=== PATIENT | female | born 1935 | race Caucasian/White ===

== ENCOUNTER 2016-02-29 02:26 | Emergency (ER) | payer MEDICARE, MEDICAID ==
[~2016-02-29] VITALS: Ht 165.1 cm; Wt 108.9 kg
[~2016-02-29 02:26] MED LIST: ALBU8.5H2 IH; ASPI81TA2 PO; ATOR40TA PO; BUPR-51 PO; CLON0.1T PO; CLOT15CR5 TP; ESOM40CA PO; FURO40SO PO; GABA-534 PO; GLIM4TAB2 PO; LINA5TAB PO; LORA10TA7 PO; MECL-102 PO; METF10002 PO; OLME40TA3 PO; POTA10TA15 PO; PRED20TA PO; TRIA80OI TP
[2016-02-29] MEDS ORDERED: hydrALAZINE HCL IV 20 MG VIAL IV ONE (03:00)
[2016-02-29] MEDS ORDERED: MORPHINE SULFATE INJ 2 MG/ML DISP.SYRIN ONE (03:15)
[2016-02-29 03:20] LABS: BASOPHILS % (AUTO) 0.7 % (0.0-2.0); DIFF TOTAL % 100 %; EOSINOPHILS # (AUTO) 0.2 /CMM (0.0-0.7); EOSINOPHILS % (AUTO) 3.4 % (0.0-6.0); HEMATOCRIT 37 % (33-45); HEMOGLOBIN 12.4 g/dL (11.5-14.8); LYMPHOCYTES # (AUTO) 1.7 /CMM (0.8-4.8); LYMPHOCYTES % (AUTO) 33.4 % (20.0-44.0); MEAN CORPUSCULAR HEMOGLOBIN 29 PG (26.0-33.0); MEAN CORPUSCULAR HGB CONC 33 g/dl (31.0-36.0); MEAN CORPUSCULAR VOLUME 88 fL (82-100); MONOCYTES # (AUTO) 0.4 /CMM (0.1-1.30); MONOCYTES % (AUTO) 7.6 % (2.0-12.0); NEUTROPHILS # (AUTO) 2.8 /CMM (1.8-8.9); NEUTROPHILS % (AUTO) 54.9 % (43.0-81.0); RED BLOOD CELL COUNT(AUTO) 4.28 MIL/uL (4.0-5.2); WHITE BLOOD COUNT (AUTO) 5.1 K/uL (4.3-11.0)
[2016-02-29 03:29] LABS: PLATELET COUNT (AUTO) 100 /CMM (150-450)
[2016-02-29] MEDS ORDERED: MORPHINE SULFATE INJ 2 MG/ML DISP.SYRIN IV ONE (03:30)
[2016-02-29 03:46] LABS: CALCIUM, SERUM 8.7 mg/dL (8.5-10.1); CREATININE 0.9 mg/dL (0.6-1.3)
[2016-02-29 04:20] VITALS: BP 125/68
== END 2016-02-29 04:20 | disposition home or self-care (01) ==
LOC: ER 02:32
DX: I10 Essential (primary) hypertension (principal); E11.9 Type 2 diabetes mellitus without complications; Z91.012 Allergy to eggs; Z79.82 Long term (current) use of aspirin
CPT/HCPCS: 36415; 70450; 80048; 85025; 93005; 96374; 99285; A4606; J2270; Z7610

== ENCOUNTER 2016-03-21 03:19 | Emergency (ER) | payer MEDICARE, MEDICAID ==
[~2016-03-21] VITALS: Ht 160 cm; Wt 108.9 kg
[2016-03-21 04:15] LABS: BASOPHILS % (AUTO) 0.7 % (0.0-2.0); DIFF TOTAL % 100 %; EOSINOPHILS # (AUTO) 0.1 /CMM (0.0-0.7); EOSINOPHILS % (AUTO) 2.6 % (0.0-6.0); HEMATOCRIT 39 % (33-45); HEMOGLOBIN 12.9 g/dL (11.5-14.8); LYMPHOCYTES # (AUTO) 1.4 /CMM (0.8-4.8); LYMPHOCYTES % (AUTO) 27.8 % (20.0-44.0); MEAN CORPUSCULAR HEMOGLOBIN 29 PG (26.0-33.0); MEAN CORPUSCULAR HGB CONC 33 g/dl (31.0-36.0); MEAN CORPUSCULAR VOLUME 86 fL (82-100); MONOCYTES # (AUTO) 0.4 /CMM (0.1-1.30); MONOCYTES % (AUTO) 7.2 % (2.0-12.0); NEUTROPHILS % (AUTO) 61.7 % (43.0-81.0); PLATELET COUNT (AUTO) 92 /CMM (150-450); RED BLOOD CELL COUNT(AUTO) 4.52 MIL/uL (4.0-5.2); WHITE BLOOD COUNT (AUTO) 4.9 K/uL (4.3-11.0)
[2016-03-21 04:23] LABS: ANION GAP 12 (5-14); CALCIUM, SERUM 9.4 mg/dL (8.5-10.1); CARBON DIOXIDE 30 mmol/L (21-32); CHLORIDE 102 mmol/L (98-107); CREATININE 0.9 mg/dL (0.6-1.3); GLUCOSE 160 mg/dL (74-106); POTASSIUM 4.2 mmol/L (3.5-5.1); SODIUM SERUM 140 mmol/L (136-145); UREA NITROGEN, BLOOD 23 mg/dL (7-18)
[2016-03-21 04:29] LABS: ALANINE AMINOTRANSFERASE 72 U/L (12-78); ALBUMIN 3.3 g/dL (3.4-5.0); ASPARTATE AMINOTRANSFERASE 63 U/L (15-37); BILIRUBIN,DIRECT 0.1 mg/dL (0.0-0.2); BILIRUBIN,TOTAL 0.4 mg/dL (0.2-1.0); INDIRECT BILIRUBIN 0.3 mg/dL (0.0-1.1); TOTAL PROTEIN, SERUM 7.7 g/dL (6.4-8.2)
[2016-03-21 04:31] LABS: TROPONIN I < 0.017 ng/mL (0.00-0.056)
[2016-03-21 04:43] LABS: KETONES,URINE TRACE (NEGATIVE); LEUKOCYTE ESTERASE ,URINE NEGATIVE (NEGATIVE); PH,URINE 5.5 (5.0-8.0)
[2016-03-21 04:48] LABS: ADD UA MICROSCOPIC YES
[2016-03-21 04:49] LABS: RBC,URINE 0-2 /HPF (0-2)
[2016-03-21 04:50] LABS: ADD URINE CULTURE NO; WBC,URINE 0-2 /HPF (0-3)
[2016-03-21 05:02] LABS: BAND % (MANUAL) 2 % (0.0-5.0); BASOPHILS % (MANUAL) 0 % (0.0-2.0); EOSINOPHILS % (MANUAL) 3 % (0-4); LYMPHOCYTES % (MANUAL) 32 % (16-48); PLATELET ESTIMATE DECREASED
[2016-03-21 05:03] LABS: RBC MORPHOLOGY COMMENT NORMAL RBC MORPH
[2016-03-21 05:31] VITALS: BP 150/67
== END 2016-03-21 05:26 | disposition home or self-care (01) ==
LOC: ER 03:22
DX: I10 Essential (primary) hypertension (principal); E11.9 Type 2 diabetes mellitus without complications; R11.0 Nausea; Z79.82 Long term (current) use of aspirin; Z91.012 Allergy to eggs; Z88.8 Allergy status to other drugs, medicaments and biological substances
CPT/HCPCS: 36415; 70450; 71010; 80048; 80076; 81001; 82962; 84484; 85025; 93005; 99285; A4606; 81000-TC; Z7610

== ENCOUNTER 2016-04-02 02:10 | Emergency (ER) | payer MEDICARE, MEDICAID ==
[~2016-04-02] VITALS: Ht 160 cm; Wt 117.0 kg
[2016-04-02] MEDS ORDERED: CLONIDINE HCL 0.1 MG TABLET ONE (02:45)
[2016-04-02] MEDS ORDERED: LORAZEPAM 1 MG TABLET ONE (02:46)
[2016-04-02] MEDS ORDERED: HYDROCODONE/APAP 10/325MG 1 EA TABLET ONE (02:46)
[2016-04-02] MEDS ORDERED: ONDANSETRON 4 MG TAB.RAPDIS ONE (02:46)
[2016-04-02] MEDS ORDERED: HYDROCODONE/APAP 10/325MG 1 EA TABLET PO ONE (03:00)
[2016-04-02] MEDS ORDERED: ONDANSETRON 4 MG TAB.RAPDIS SL ONE (03:00)
[2016-04-02] MEDS ORDERED: CLONIDINE HCL 0.1 MG TABLET PO ONE (03:00)
[2016-04-02] MEDS ORDERED: LORAZEPAM 1 MG TABLET PO ONE (03:00)
[2016-04-02 03:11] LABS: KETONES,URINE NEGATIVE (NEGATIVE); LEUKOCYTE ESTERASE ,URINE NEGATIVE (NEGATIVE); PH,URINE 5.5 (5.0-8.0)
[2016-04-02 03:17] LABS: ADD UA MICROSCOPIC YES
[2016-04-02 03:18] LABS: ADD URINE CULTURE NO; RBC,URINE NONE SEEN /HPF (0-2); WBC,URINE 0-2 /HPF (0-3)
[2016-04-02 03:47] VITALS: BP 149/87
== END 2016-04-02 03:49 | disposition home or self-care (01) ==
LOC: ER 02:13
DX: I10 Essential (primary) hypertension (principal); Z91.012 Allergy to eggs
CPT/HCPCS: 81000-TC; 82962-TC; A4606; Q0162; Z7610

== ENCOUNTER 2016-04-08 08:34 | Emergency (ER) | payer MEDICARE, MEDICAID ==
[~2016-04-08] VITALS: Ht 167.6 cm; Wt 88.5 kg
[2016-04-08] MEDS ORDERED: diphenhydrAMINE HCL 50 MG/ML VIAL ONE (08:55)
[2016-04-08] MEDS ORDERED: FAMOTIDINE/PF INJ 20 MG/2 ML VIAL IV ONE ×2 (08:55→09:00)
[2016-04-08] MEDS ORDERED: predniSONE 20 MG TABLET ONE (08:55)
[2016-04-08] MEDS ORDERED: diphenhydrAMINE HCL 50 MG/ML VIAL IV ONE (09:00)
[2016-04-08] MEDS ORDERED: predniSONE 10 MG TABLET PO ONE (09:00)
[2016-04-08] MEDS ORDERED: GABA-532 PO (09:25)
[2016-04-08] MEDS ORDERED: NEBI5TAB8 PO (09:25)
[2016-04-08] MEDS ORDERED: CLON1PAT13 TD (09:25)
[2016-04-08] MEDS ORDERED: BENA20TA2 PO (09:25)
[2016-04-08 10:18] VITALS: BP 160/84
== END 2016-04-08 10:20 | disposition home or self-care (01) ==
LOC: ER 08:36
DX: T78.3XXA Angioneurotic edema, initial encounter (principal); I10 Essential (primary) hypertension; E11.9 Type 2 diabetes mellitus without complications; Z91.012 Allergy to eggs; Z79.82 Long term (current) use of aspirin
CPT/HCPCS: 96374; 96375; 99284; A4606; J1200; J3490; J7512; Z7610

== ENCOUNTER 2016-06-04 05:31 | Emergency (ER) | payer MEDICARE, MEDICAID ==
[~2016-06-04] VITALS: Ht 165.1 cm; Wt 81.6 kg
[~2016-06-04 05:31] MED LIST changes: -ALBU8.5H2 IH; -ASPI81TA2 PO; -ATOR40TA PO; +BENA20TA2 PO; -BUPR-51 PO; -CLON0.1T PO; +CLON1PAT13 TD; -CLOT15CR5 TP; -ESOM40CA PO; -FURO40SO PO; +GABA-532 PO; -GABA-534 PO; -LORA10TA7 PO; -MECL-102 PO; +NEBI5TAB8 PO; -OLME40TA3 PO; -POTA10TA15 PO; -PRED20TA PO; -TRIA80OI TP
[2016-06-04] MEDS ORDERED: IV NS 0.9% 1,000 ML ONE (05:41)
[2016-06-04] MEDS ORDERED: IV SET PRIMARY 1 EA INFUS.SET MC ONE (05:41)
[2016-06-04] MEDS ORDERED: KETOROLAC TROMETHAMINE 15 MG/ML VIAL ONE (05:41)
[2016-06-04] MEDS ORDERED: ONDANSETRON HCL/PF 4 MG/2 ML VIAL ONE (05:41)
--- NOTE | 2016-06-04 05:45 | NUR ---
80 YO FEMALE BB FEMALE, PT IS ALERT X 3, C/O LT FLANK PAIN RADIATING TO LT SIDE SINCE 0430. PT AMBULATED TO ER BED WITH STEADY GAIT, SKIN WARM AND DRY, RR EVEN AND UNLABORED. AWAITING ORDERS FROM PROVIDER
--- NOTE | 2016-06-04 05:50 | NUR ---
20G LEFT FA IV STARTED
--- NOTE | 2016-06-04 05:55 | NUR ---
MEDICATED PT ORDERED
[2016-06-04] MEDS ORDERED: IV NS 0.9% 1,000 ML BAG IV ONE (06:00)
[2016-06-04] MEDS ORDERED: ONDANSETRON HCL/PF 4 MG/2 ML VIAL IVP ONE (06:00)
[2016-06-04] MEDS ORDERED: KETOROLAC TROMETHAMINE INJ 30 MG/ML VIAL IV ONE (06:00)
--- NOTE | 2016-06-04 06:16 | NUR ---
PT TRANSPORTED TO CT VIA GURNEY BY RADIOLOGY TEAM
[2016-06-04 06:20] LABS: CALCIUM, SERUM 9.4 mg/dL (8.5-10.1); CARBON DIOXIDE 26 mmol/L (21-32); CHLORIDE 104 mmol/L (98-107); CREATININE 0.9 mg/dL (0.6-1.3); GLUCOSE 210 mg/dL (74-106); POTASSIUM 4.1 mmol/L (3.5-5.1); SODIUM SERUM 140 mmol/L (136-145); UREA NITROGEN, BLOOD 15 mg/dL (7-18)
--- NOTE | 2016-06-04 06:20 | NUR ---
PT RETURNED FROM CT
[2016-06-04 06:27] LABS: ALANINE AMINOTRANSFERASE 75 U/L (12-78); ALBUMIN 3.2 g/dL (3.4-5.0); ALKALINE PHOSPHATASE 75 U/L (46-116); ASPARTATE AMINOTRANSFERASE 49 U/L (15-37); BILIRUBIN,DIRECT 0.2 mg/dL (0.0-0.2); BILIRUBIN,TOTAL 0.7 mg/dL (0.2-1.0); LIPASE 255 U/L (73-393); TOTAL PROTEIN, SERUM 7.3 g/dL (6.4-8.2)
[2016-06-04 06:28] LABS: BASOPHILS % (AUTO) 0.5 % (0.0-2.0); EOSINOPHILS # (AUTO) 0.1 /CMM (0.0-0.7); EOSINOPHILS % (AUTO) 2.9 % (0.0-6.0); HEMATOCRIT 38 % (33-45); HEMOGLOBIN 12.6 g/dL (11.5-14.8); LYMPHOCYTES # (AUTO) 1.4 /CMM (0.8-4.8); LYMPHOCYTES % (AUTO) 28.9 % (20.0-44.0); MEAN CORPUSCULAR HEMOGLOBIN 28 PG (26.0-33.0); MEAN CORPUSCULAR HGB CONC 33 g/dl (31.0-36.0); MEAN CORPUSCULAR VOLUME 85 fL (82-100); MONOCYTES # (AUTO) 0.4 /CMM (0.1-1.30); MONOCYTES % (AUTO) 9.3 % (2.0-12.0); NEUTROPHILS # (AUTO) 2.8 /CMM (1.8-8.9); NEUTROPHILS % (AUTO) 58.4 % (43.0-81.0); PLATELET COUNT (AUTO) 103 /CMM (150-450); RDW COEFFICIENT OF VARIATION 14.8 (11.5-15.0); RED BLOOD CELL COUNT(AUTO) 4.47 MIL/uL (4.0-5.2); TROPONIN I < 0.017 ng/mL (0.00-0.056); WHITE BLOOD COUNT (AUTO) 4.8 K/uL (4.3-11.0)
[2016-06-04 06:37] LABS: APPEARANCE,URINE SL CLOUDY (CLEAR); BILIRUBIN,URINE NEGATIVE (NEGATIVE); BLOOD, URINE 1+ Ery/uL (NEGATIVE); COLOR,URINE YELLOW (YELLOW); KETONES,URINE NEGATIVE (NEGATIVE); LEUKOCYTE ESTERASE ,URINE TRACE (NEGATIVE); NITRITE, URINE NEGATIVE (NEGATIVE); PH,URINE 5.5 (5.0-8.0); PROTEIN,URINE NEGATIVE (NEGATIVE); UGLUCOSE TRACE mg/dL (NEGATIVE); UROBILINOGEN,URINE 0.2 EU/dL (0.2)
[2016-06-04 06:44] LABS: ADD URINE CULTURE NO; BACTERIA,URINE Few /HPF (None Seen); SQUAMOUS EPITHELIAL CELL,UR Moderate /HPF (None Seen)
[2016-06-04 06:45] LABS: MUCUS,URINE Few /LPF (None Seen)
[2016-06-04] MEDS ORDERED: ACETAMINOPHEN W/ CODEINE#3 1 EA TABLET PO ONE (08:00)
[2016-06-04] MEDS ORDERED: ACETAMINOPHEN W/ CODEINE#3 1 EA TABLET ONE (08:05)
--- NOTE | 2016-06-04 08:26 | NUR ---
IV removed. Catheter intact and site benign. Pressure and 4x4 applied to site. No bleeding noted.
[2016-06-04 08:57] VITALS: BP 138/81
--- NOTE | 2016-06-04 08:57 | NUR ---
Patient discharged to home in stable condition. Written and verbal after care instructions given. Patient verbalizes understanding of instruction.
--- NOTE | 2016-06-04 08:57 | NUR ---
PATIENT AMBULATES OUT OF ER WITH STABLE GAIT. AAOX3.
== END 2016-06-04 08:57 | disposition home or self-care (01) ==
LOC: ER 05:32
DX: R10.32 Left lower quadrant pain (principal); I10 Essential (primary) hypertension; E11.9 Type 2 diabetes mellitus without complications
CPT/HCPCS: 36415; 74176; 80048; 80076; 81001; 83690; 84484; 85025; 93005; 96361; 96374; 96375; 99285; A4606; J1885; J2405; J7030; 81000-TC; Z7610

== ENCOUNTER 2016-08-24 10:05 | Emergency (ER) | payer MEDICARE, MEDICAID ==
[~2016-08-24] VITALS: Ht 162.6 cm; Wt 108.9 kg
[2016-08-24 10:18] VITALS: BP 167/104
== END 2016-08-24 10:45 | disposition home or self-care (01) ==
LOC: ER 10:07
DX: T78.40XA Allergy, unspecified, initial encounter (principal); E11.9 Type 2 diabetes mellitus without complications; I10 Essential (primary) hypertension; Z88.0 Allergy status to penicillin; Z91.012 Allergy to eggs; Y92.89 Other specified places as the place of occurrence of the external cause
CPT/HCPCS: A4606; Z7610

== ENCOUNTER 2016-12-23 12:17 | Inpatient (IN) | payer MEDICARE, MEDICAID ==
[~2016-12-23] VITALS: Ht 170.2 cm; Wt 114.3 kg
--- NOTE | 2016-12-23 12:24 | NUR ---
PT AMBULATORY TO ER BED 09. C/O HIGH BLOOD PRESSURE FOR COUPLE OF DAYS W/ HEADACHES WORST AT NIGHT TIME. GOWNED AND PLACED ON MONITOR. HYPERTENSIVE OTHERWISE STABLE VITALS. AWAITING MD BOWERS.
--- NOTE | 2016-12-23 12:32 | NUR ---
DR GONZALEZ AT BEDSIDE FOR EVAL.
[2016-12-23 12:47] LABS: BASOPHILS % (AUTO) 0.3 % (0.0-2.0); EOSINOPHILS # (AUTO) 0.1 /CMM (0.0-0.7); EOSINOPHILS % (AUTO) 1.5 % (0.0-6.0); HEMATOCRIT 37 % (33-45); HEMOGLOBIN 12.4 g/dL (11.5-14.8); LYMPHOCYTES # (AUTO) 1.5 /CMM (0.8-4.8); LYMPHOCYTES % (AUTO) 26.7 % (20.0-44.0); MEAN CORPUSCULAR HEMOGLOBIN 30 PG (26.0-33.0); MEAN CORPUSCULAR HGB CONC 34 g/dl (31.0-36.0); MEAN CORPUSCULAR VOLUME 88 fL (82-100); MONOCYTES # (AUTO) 0.4 /CMM (0.1-1.30); MONOCYTES % (AUTO) 7.7 % (2.0-12.0); NEUTROPHILS # (AUTO) 3.5 /CMM (1.8-8.9); NEUTROPHILS % (AUTO) 63.8 % (43.0-81.0); PLATELET COUNT (AUTO) 98 /CMM (150-450); RDW COEFFICIENT OF VARIATION 14.4 (11.5-15.0); WHITE BLOOD COUNT (AUTO) 5.4 K/uL (4.3-11.0)
[2016-12-23] MEDS ORDERED: NITROGLYCERIN 0.4 MG/TAB BOTTLE ONE (12:49)
[2016-12-23] MEDS ORDERED: ASPIRIN 325 MG TABLET ONE (12:49)
--- NOTE | 2016-12-23 12:51 | NUR ---
RADIOLOGY AT BEDSIDE FOR CHEST XRAY.
[2016-12-23 12:52] LABS: CARBON DIOXIDE 24 mmol/L (21-32); CHLORIDE 106 mmol/L (98-107); GLUCOSE 283 mg/dL (74-106); POTASSIUM 4.1 mmol/L (3.5-5.1); SODIUM SERUM 137 mmol/L (136-145); UREA NITROGEN, BLOOD 17 mg/dL (7-18)
[2016-12-23 12:57] LABS: INR 0.99 (0.87-1.13); PROTHROMBIN TIME 10.3 SECS (9.5-12.7)
[2016-12-23] MEDS ORDERED: NITROGLYCERIN 0.4 MG/TAB BOTTLE SL ONE (13:00)
[2016-12-23] MEDS ORDERED: ASPIRIN 325 MG TABLET PO ONE (13:00)
[2016-12-23 13:01] LABS: TROPONIN I < 0.017 ng/mL (0.00-0.056)
[2016-12-23] MEDS ORDERED: INSULIN REGULAR, HUMAN 100 UNIT/ML 10 ML VIAL ONE (13:25)
[2016-12-23] MEDS ORDERED: INSULIN REGULAR, HUMAN 100 UNIT/ML 10 ML VIAL SQ ONE (13:30)
--- NOTE | 2016-12-23 13:31 | NUR ---
REGULAR INSULIN GIVEN 2 UNITS SQ TO LLQ ABDOMEN. WITNESSED BY ALEKSANDR JEFFERS.
--- NOTE | 2016-12-23 13:32 | NUR ---
CALLED [employer], LOSS PREVENTION DETECTIVE WAS PAGED.
--- NOTE | 2016-12-23 13:50 | NUR ---
FAMILY ART LEFT CONTACT # [phone]
[2016-12-23 13:54] LABS: BAND % (MANUAL) 1 % (0.0-5.0); EOSINOPHILS % (MANUAL) 1 % (0-4); LYMPHOCYTES % (MANUAL) 24 % (16-48); MONOCYTES % (MANUAL) 11 % (0-11.0); NEUTROPHILS % (MANUAL) 63 (42-76)
[2016-12-23] MEDS ORDERED: CLON1PAT13 TD (13:54)
[2016-12-23] MEDS ORDERED: FURO40TA5 PO (13:54)
[2016-12-23] MEDS ORDERED: LEVE500T20 PO (13:54)
[2016-12-23] MEDS ORDERED: NEBI10TA2 PO (13:54)
[2016-12-23] MEDS ORDERED: PANT40TA4 PO (13:54)
[2016-12-23] MEDS ORDERED: INSU3INS6 SQ (13:54)
[2016-12-23] MEDS ORDERED: MONT10TA22 PO (13:54)
[2016-12-23] MEDS ORDERED: BUPR-51 PO (13:54)
[2016-12-23] MEDS ORDERED: ICOS1CAP PO (13:54)
[2016-12-23] MEDS ORDERED: POTA8TAB3 PO (13:54)
[2016-12-23 15:20] VITALS: BP 141/72
--- NOTE | 2016-12-23 15:20 | NUR ---
ZEYAD ADM Notes Received an 81 year old female per hospital bed with cc of Syncope under the service of Dr Reyna. Patient is awake,alert and oriented. Not in any form of distress. Denies headache or dizziness. On RA saturating at 97%. VSS. Oriented to the room and use of call light. Initial body check done with ZEYAD Alvarez with skin intact. Tele monitor attached, sinus rhythm. Pending admitting orders from Dr Reyna. Addendum: 12/23/16 at 1616 by MICHELLE LUA RN correction of entry: cc of chest pain
--- NOTE | 2016-12-23 15:26 | NUR ---
TRANSFERED TO FLOOR. STABLE CONDITION.
[2016-12-23 16:00] VITALS: BP 141/72
[2016-12-23] MEDS ORDERED: ZOLPIDEM TARTRATE 5 MG TABLET PO PRN (16:00)
[2016-12-23] MEDS ORDERED: Z GUARD REMEDY 2 OZ OINT TP PRN (16:00)
[2016-12-23] MEDS ORDERED: MAG HYDROX/AL HYDROX/SIMETH 30 ML UDC PO PRN (16:00)
[2016-12-23] MEDS ORDERED: MORPHINE SULFATE INJ 2 MG/ML DISP.SYRIN IV PRN (16:00)
[2016-12-23] MEDS ORDERED: MAGNESIUM HYDROXIDE 30 ML UDC PO PRN (16:00)
[2016-12-23] MEDS ORDERED: ONDANSETRON HCL/PF 4 MG/2 ML VIAL IVP PRN (16:00)
[2016-12-23] MEDS ORDERED: CLONIDINE HCL 0.2MG/24H PTWK 1 EA PATCH TD SCH (16:00)
[2016-12-23] MEDS ORDERED: NITROGLYCERIN 0.4 MG/TAB BOTTLE SL PRN (16:00)
[2016-12-23] MEDS ORDERED: ACETAMINOPHEN 325 MG TABLET PO PRN (16:00)
[2016-12-23] MEDS ORDERED: HYDROCODONE/APAP 5/325MG 1 EACH TABLET PO PRN (16:00)
[2016-12-23 16:18] VITALS: BP 141/72
[2016-12-23] MEDS: GLIMEPIRIDE 4 MG TABLET PO SCH (18:41)
[2016-12-23] MEDS: METFORMIN 500 MG TABLET PO SCH (18:41)
[2016-12-23] MEDS: GABAPENTIN 100 MG CAPSULE PO SCH (18:42)
[2016-12-23] MEDS: ENOXAPARIN SODIUM 40 MG/0.4 ML DISP.SYRIN SQ SCH (18:42)
--- NOTE | 2016-12-23 19:05 | NUR ---
RN Notes Resting well with no complain at this time. Needs anticipated. No untoward symptom noted within the shift. Will endorse to restaurant shift leader nurse for continuity of care.
--- NOTE | 2016-12-23 19:25 | NUR ---
TECHNICAL EDITOR OPENING NOTES: RECEIVED PT IN BED AND IS RESTING WITH HOB ELEVATED. PT IS A/OX3 AND IS ONLY CROATIAN/GAMBIAN SPEAKING. PT DENIES ANY PAIN AT THIS TIME. NO SOB NOTED AT THIS TIME. NO S/S OF DISTRESS NOTED AT THIS TIME. PT HAS IV ON L HAND 18G AND IS PATENT AND INTACT. PT ALSO CURRENTLY HEP LOCK. PT NOTIFIED THAT SHE IS TO BE NPO POST MIDNIGHT AND WILL HAVE A PROCEDURE TOMORROW. WILL NEED TO OBTAIN CONSENT FROM HER. WILL CONTINUE TO MONITOR PT.
[2016-12-23 20:00] VITALS: BP 138/71
[2016-12-23] MEDS: LEVETIRACETAM (250 MG) 250 MG TABLET PO SCH (21:00)
--- NOTE | 2016-12-23 21:27 | NUR ---
WORLD LANGUAGE TEACHER NOTES: AFTER GETTING AN SINHALA SPEAKING PERSON, I HAD HIM TRANSLATE TO PT ABOUT KEPPRA RISKS AND BENEFITS. PT STILL REFUSED AFTER BEING EXPLAINED RISKS AND BENEFITS OF KEPPRA. WILL CONTINUE TO MONITOR PT.
[2016-12-24] VITALS: BP 129/64
--- NOTE | 2016-12-24 00:15 | NUR ---
HOUSEKEEPER CLEANING COOKING NOTES: SPOKE WITH Lyle IGNACIO AND INFORMED HIM THAT DR. MANSI Craig PUT IN THE NOTES FOR FS ACHS MILD SSI. GOT ORDER TO GO AHEAD AND CHECK ACCUCHEKS AND GO BY DR. MANSI Gordon'S ORDERS.
[2016-12-24] MEDS ORDERED: DEXTROSE 50%-WATER 50 ML DISP.SYRIN IV PRN (00:30)
[2016-12-24] MEDS ORDERED: MORPHINE SULFATE INJ 4 MG/ML DISP.SYRIN ONE (03:28)
[2016-12-24] MEDS ORDERED: MORPHINE SULFATE INJ 4 MG/ML DISP.SYRIN IV ONE (03:30)
--- NOTE | 2016-12-24 03:36 | NUR ---
MAIL CARRIER NOTES: PT COMPLAINING OF 7/10 HEADACHE AND GENERALIZED PAIN. MORPHINE WAS OVERRODE BY THE CHARGE NURSE SINCE MORPHINE 2MG IN BOTH MED ROOMS ARE OUT OF STOCK. ONLY ADMINISTERED 0.5ML OR MORPHINE AND WASTED REMAINDER. UNABLE TO WASTE IN SYSTEM. IT DOES NOT GIVE OPTION. CHARGE NURSE AWARE. WILL CONTINUE TO MONITOR PT.
[2016-12-24 04:00] VITALS: BP 145/65
--- NOTE | 2016-12-24 05:40 | NUR ---
PAPER SAMPLE CLERK NOTES: DR. IGNACIO AWARE OF MORPHINE 2MG BEING OUT AND THAT MORPHINE 4MG HAD TO BE OVERRODE BY CHARGE NURSE. IT WAS ONLY A ONE TIME ORDER.
[2016-12-24] MEDS: BLOOD SUGAR DIAGNOSTIC 1 EACH STRIP IN SCH ×4 (06:01→21:04)
--- NOTE | 2016-12-24 06:22 | NUR ---
AGRICULTURAL ADVISER NOTES: BLOOD SUGAR THIS AM WAS 160. WILL HOLD INSULIN D/T PT BEING NPO AND HAS A STRESS TEST SCHEDULED SOMETIME THIS MORNING. ALSO, PT SAID THAT SHE DID NOT WANT THE INSULIN ANYWAYS D/T HER TAKING ORAL HYPOGLYCEMICS. WILL CONTINUE TO MONITOR PT.
[2016-12-24] MEDS: INSULIN REGULAR, HUMAN 100 UNIT/ML 3 ML VIAL SQ PRN ×4 (06:23→21:11)
[2016-12-24 06:52] LABS: BASOPHILS % (AUTO) 0.5 % (0.0-2.0); EOSINOPHILS # (AUTO) 0.1 /CMM (0.0-0.7); EOSINOPHILS % (AUTO) 3.1 % (0.0-6.0); HEMATOCRIT 34 % (33-45); HEMOGLOBIN 11.7 g/dL (11.5-14.8); LYMPHOCYTES # (AUTO) 1.3 /CMM (0.8-4.8); LYMPHOCYTES % (AUTO) 35.8 % (20.0-44.0); MEAN CORPUSCULAR HEMOGLOBIN 30 PG (26.0-33.0); MEAN CORPUSCULAR HGB CONC 34 g/dl (31.0-36.0); MEAN CORPUSCULAR VOLUME 87 fL (82-100); MONOCYTES # (AUTO) 0.3 /CMM (0.1-1.30); MONOCYTES % (AUTO) 8.7 % (2.0-12.0); NEUTROPHILS # (AUTO) 1.9 /CMM (1.8-8.9); NEUTROPHILS % (AUTO) 51.9 % (43.0-81.0); PLATELET COUNT (AUTO) 79 /CMM (150-450); RDW COEFFICIENT OF VARIATION 14.5 (11.5-15.0); RED BLOOD CELL COUNT(AUTO) 3.92 MIL/uL (4.0-5.2); WHITE BLOOD COUNT (AUTO) 3.7 K/uL (4.3-11.0)
[2016-12-24 07:05] LABS: CHOLESTEROL 130 mg/dL (<200); HDL CHOLESTEROL 56 mg/dL (40-60); LDL 60 mg/dL (0-99); TRIGLYCERIDES 107 mg/dL (30-150)
[2016-12-24 07:18] LABS: CALCIUM, SERUM 9.3 mg/dL (8.5-10.1); CARBON DIOXIDE 23 mmol/L (21-32); CHLORIDE 105 mmol/L (98-107); CREATININE 0.8 mg/dL (0.6-1.3); GLUCOSE 177 mg/dL (74-106); PHOSPHORUS 4.4 mg/dL (2.5-4.9); POTASSIUM 3.8 mmol/L (3.5-5.1); SODIUM SERUM 141 mmol/L (136-145); UREA NITROGEN, BLOOD 16 mg/dL (7-18)
--- NOTE | 2016-12-24 07:27 | NUR ---
DIRECTOR OF ENTERPRISE STRATEGY CLOSING NOTES: ALL NEEDS WERE ATTENDED AND ANTICIPATED FOR. PT LAYING IN BED COMFORTABLY. PT IS A/OX3 AND IS ONLY HUNGARIAN/MARSHALLESE SPEAKING. NO SOB NOTED AT THIS TIME. NO S/S OF DISTRESS NOTED AT THIS TIME. PT HAS IV ON L HAND 18G AND IS PATENT AND INTACT. PT ALSO CURRENTLY HEP LOCK. PT NOTIFIED THAT SHE IS TO BE NPO UNTIL STRESS TEST PERFORMED AND CLEARED FROM DOCTOR. CONSENT OBTAINED. PT ON TELE BOX AND READING SHOWS SR. CALL LIGHT WITHIN PT'S REACH. BED KEPT IN LOW, LOCKED POSITION, AND SIDE RAILS X 2 UP. ENDORSED TO AM NURSE FOR MICHAEL.
[2016-12-24] MEDS: PANTOPRAZOLE 40 MG TABLET.DR PO SCH (07:30)
--- NOTE | 2016-12-24 07:35 | NUR ---
RN OPENING NOTES RECEIVED PT. IN BED A&OX4. TELE READING SINUS RHYTHM 61 BPM. NO SOB, BREATHING UNLABORED, AND EVENLY. PT. DENIES CHEST PAIN, AND NO S/S OF ACUTE DISTRESS. IV ACCESS ON LEFT HAND SITE IS INTACT AND PATENT WITH SALINE FLUSH. BED IS IN LOWEST, LOCKED POSITION, 2 SIDE RAILS UP, AND INSTRUCTED PT. TO USE CALL LIGHT FOR ASSISTANCE. WILL CONTINUE TO ASSESS AND MONITOR.
[2016-12-24 07:58] LABS: MAGNESIUM 1.2 mg/dL (1.8-2.4)
[2016-12-24 08:00] VITALS: BP 153/63
[2016-12-24 08:49] LABS: BAND % (MANUAL) 2 % (0.0-5.0); EOSINOPHILS % (MANUAL) 4 % (0-4); LYMPHOCYTES % (MANUAL) 38 % (16-48); MONOCYTES % (MANUAL) 6 % (0-11.0); NEUTROPHILS % (MANUAL) 50 (42-76)
[2016-12-24] MEDS: LINAGLIPTIN 5 MG TABLET PO SCH (09:00)
[2016-12-24] MEDS: INSULIN DETEMIR 100 UNIT/ML CARTRIDGE SQ SCH (09:00)
[2016-12-24] MEDS: GLIMEPIRIDE 4 MG TABLET PO SCH ×3 (09:00→17:47)
[2016-12-24] MEDS: METFORMIN 500 MG TABLET PO SCH ×3 (09:00→17:47)
[2016-12-24] MEDS ORDERED: FUROSEMIDE 40 MG TABLET PO SCH (09:00)
[2016-12-24] MEDS ORDERED: REGADENOSON 0.4 MG/5 ML DISP.SYRIN IVP ONE (10:00)
[2016-12-24] MEDS: GABAPENTIN 100 MG CAPSULE PO SCH ×2 (10:02→17:45)
[2016-12-24] MEDS: ASPIRIN EC 81 MG TABLET.DR PO SCH (10:02)
[2016-12-24] MEDS: BUPROPION XL 150 MG TAB.ER.24 PO SCH (10:03)
[2016-12-24] MEDS: LEVETIRACETAM (250 MG) 250 MG TABLET PO SCH ×2 (10:03→20:18)
[2016-12-24] MEDS: MONTELUKAST SODIUM (10MG) 10 MG TABLET PO SCH (10:04)
[2016-12-24] MEDS ORDERED: CLONIDINE HCL 0.2MG/24H PTWK 1 EA PATCH TD SCH (12:00)
[2016-12-24] MEDS: Magnesium 1GM/D5W 100ML PREMIX 100 ML IV SCH ×2 (12:46→15:19)
[2016-12-24] MEDS: LOSARTAN POTASSIUM 50 MG TABLET PO SCH (12:57)
[2016-12-24] MEDS ORDERED: IBUPROFEN 400 MG TABLET PO ONE (15:00)
[2016-12-24 16:00] VITALS: BP 148/89
--- NOTE | 2016-12-24 19:05 | NUR ---
RN OPENING NOTES: RECEIVED PT IN BED AND IS LAYING DOWN. PT IS A/OX4.NO SOB NOTED. BREATHING EVEN AND UNLABORED. NO S/S OF DISTRESS. IV ACCESS ON LEFT HAND SITE IS INTACT AND PATENT WITH SALINE FLUSH. CALL LIGHT WITHIN PT'S REACH. BED KEPT IN LOW, LOCKED POSITION, AND SIDE RAILS X 2 UP. WILL CONTINUE TO MONITOR PT.
--- NOTE | 2016-12-24 19:30 | NUR ---
RN CLOSING NOTES PT. IN BED A&OX4. TELE READING SINUS RHYTHM 62 BPM. NO SOB, BREATHING UNLABORED, AND EVENLY. NO S/S OF ACUTE DISTRESS. IV ACCESS ON LEFT HAND SITE IS INTACT AND PATENT WITH SALINE FLUSH. MAGNESIUM WAS REPLACED TODAY. BED IS IN LOWEST, LOCKED POSITION, 2 SIDE RAILS UP, AND INSTRUCTED PT. TO USE CALL LIGHT FOR ASSISTANCE.
--- NOTE | 2016-12-24 19:39 | NUR ---
DIRECTOR OF GUIDANCE IN PUBLIC SCHOOLS NOTES: DR. JONES WAS ON FLOOR. MENTIONED TO HIM THAT PLATELET COUNT WAS 79. GOT VERBAL ORDER TO HOLD THE LOVENOX 40MG THAT IS SCHEDULED FOR 2100.
[2016-12-24 20:00] VITALS: BP 128/72
[2016-12-24] MEDS: ENOXAPARIN SODIUM 40 MG/0.4 ML DISP.SYRIN SQ SCH (20:23)
--- NOTE | 2016-12-24 21:11 | NUR ---
LEAD PROGRAMMER NOTES: BLOOD SUGAR WAS 72. NO INSULIN WAS ADMINISTERED. WILL CONTINUE TO MONITOR PT.
--- NOTE | 2016-12-24 21:20 | NUR ---
GROOVER AND TURNER NOTES: SPOKE TO JANNETTE CHURCHILL AND INFORMED HIM THAT PT IS COMPLAINING OF HEADACHE AND REQUESTING FOR ADVIL. GOT ORDER FOR IBUPROFEN 400MG Q6 PRN.
[2016-12-24] MEDS ORDERED: IBUPROFEN 400 MG TABLET ONE (21:29)
[2016-12-24] MEDS ORDERED: IBUPROFEN 400 MG TABLET PO PRN (21:30)
--- NOTE | 2016-12-24 21:46 | NUR ---
VENEER DRIER FEEDER NOTES: PT COMPLAINING OF MILD HEADACHE. FAMILY MEMBERS AT BEDSIDE TRANSLATED FOR ME. PT WAS ADMINISTERED IBUPROFEN 400MG PO. WILL CONTINUE TO MONITOR PT.
[2016-12-25] MEDS: BLOOD SUGAR DIAGNOSTIC 1 EACH STRIP IN SCH ×2 (06:06→11:53)
[2016-12-25] MEDS: INSULIN REGULAR, HUMAN 100 UNIT/ML 3 ML VIAL SQ PRN ×2 (06:09→11:53)
--- NOTE | 2016-12-25 06:10 | NUR ---
MS RN NOTES: PT'S BLOOD SUGAR THIS AM WAS 137. EXPLAINED TO PT THAT SHE NEEDS 2 UNITS OF INSULIN ACCORDING TO THE SLIDING SCALE. PT REFUSED AFTER EXPLAINING RISKS AND BENEFITS. SHE SAID SHE IS AWARE AND THAT SHE IS TAKING ORAL HYPOGLYCEMICS. PT STILL REFUSING. WILL CONTINUE TO MONITOR PT.
--- NOTE | 2016-12-25 06:26 | NUR ---
MS RN CLOSING NOTES: ALL NEEDS WERE ATTENDED AND ANTICIPATED FOR. TOOK PT OFF TELE BOX SINCE THERE WAS AN ORDER TO D/C HER AND TRANSFER HER TO MED SURG. PT IN BED ASLEEP, COMFORTABLY. PT IS A&OX4. PT ONLY ANGUILLAN/BELGIAN SPEAKING AND UNDERSTANDING ONLY. NO SOB NOTED. BREATHING UNLABORED AND EVEN. PT. DENIES CHEST PAIN. NO S/S OF DISTRESS. IV ACCESS ON LEFT HAND SITE IS INTACT AND PATENT WITH SALINE FLUSH. BED KEPT IN LOW, LOCKED POSITION, AND SIDE RAILS X2 UP. CALL LIGHT WITHIN PT'S REACH. WILL ENDORSE TO AM NURSE FOR MICHAEL.
[2016-12-25 06:55] LABS: BASOPHILS % (AUTO) 0.4 % (0.0-2.0); EOSINOPHILS # (AUTO) 0.1 /CMM (0.0-0.7); EOSINOPHILS % (AUTO) 3.8 % (0.0-6.0); HEMATOCRIT 34 % (33-45); HEMOGLOBIN 11.8 g/dL (11.5-14.8); LYMPHOCYTES # (AUTO) 1.2 /CMM (0.8-4.8); LYMPHOCYTES % (AUTO) 33.7 % (20.0-44.0); MEAN CORPUSCULAR HEMOGLOBIN 30 PG (26.0-33.0); MEAN CORPUSCULAR HGB CONC 34 g/dl (31.0-36.0); MEAN CORPUSCULAR VOLUME 87 fL (82-100); MONOCYTES # (AUTO) 0.3 /CMM (0.1-1.30); MONOCYTES % (AUTO) 7.6 % (2.0-12.0); NEUTROPHILS % (AUTO) 54.5 % (43.0-81.0); PLATELET COUNT (AUTO) 78 /CMM (150-450); RDW COEFFICIENT OF VARIATION 14.4 (11.5-15.0); RED BLOOD CELL COUNT(AUTO) 3.94 MIL/uL (4.0-5.2); WHITE BLOOD COUNT (AUTO) 3.6 K/uL (4.3-11.0)
--- NOTE | 2016-12-25 07:10 | NUR ---
RN MS NOTES PATIENT ALERT AND ORIENTED X4, MALTESE/SINGAPOREAN SPEAKING, UNDERSTANDS VERY LITTLE THAI, DENIES CHEST PAIN OR DISCOMFORT AT THIS TIME, NO RESPIRATORY DISTRESS, ALL NEEDS ATTENDED AND MET, SAFETY MEASURES IN PLACED, CALL LIGHT WITHIN REACH, WILL CONTINUE TO MONITOR.
[2016-12-25 07:13] LABS: CARBON DIOXIDE 26 mmol/L (21-32); CHLORIDE 105 mmol/L (98-107); CREATININE 0.7 mg/dL (0.6-1.3); GLUCOSE 148 mg/dL (74-106); SODIUM SERUM 139 mmol/L (136-145); UREA NITROGEN, BLOOD 17 mg/dL (7-18)
[2016-12-25 08:00] VITALS: BP 141/71
[2016-12-25 08:36] LABS: BAND % (MANUAL) 2 % (0.0-5.0); EOSINOPHILS % (MANUAL) 4 % (0-4); LYMPHOCYTES % (MANUAL) 33 % (16-48); MONOCYTES % (MANUAL) 7 % (0-11.0); NEUTROPHILS % (MANUAL) 54 (42-76)
[2016-12-25] MEDS: GABAPENTIN 100 MG CAPSULE PO SCH (08:36)
[2016-12-25] MEDS: ASPIRIN EC 81 MG TABLET.DR PO SCH (08:36)
[2016-12-25] MEDS: METFORMIN 500 MG TABLET PO SCH (08:36)
[2016-12-25] MEDS: LEVETIRACETAM (250 MG) 250 MG TABLET PO SCH (08:37)
[2016-12-25] MEDS: LOSARTAN POTASSIUM 50 MG TABLET PO SCH (08:37)
[2016-12-25] MEDS: LINAGLIPTIN 5 MG TABLET PO SCH (08:37)
[2016-12-25] MEDS: GLIMEPIRIDE 4 MG TABLET PO SCH (08:37)
[2016-12-25] MEDS: BUPROPION XL 150 MG TAB.ER.24 PO SCH (08:37)
[2016-12-25] MEDS: PANTOPRAZOLE 40 MG TABLET.DR PO SCH (08:38)
[2016-12-25] MEDS: MONTELUKAST SODIUM (10MG) 10 MG TABLET PO SCH (08:38)
[2016-12-25] MEDS: INSULIN DETEMIR 100 UNIT/ML CARTRIDGE SQ SCH (08:52)
[2016-12-25] MEDS ORDERED: LOSA50TA3 PO (15:23)
[2016-12-25] MEDS ORDERED: ASPI-991 PO (15:23)
[2016-12-25 16:00] VITALS: BP 161/83
--- NOTE | 2016-12-25 16:40 | NUR ---
PRESCHOOL TEACHER NOTE PATIENT ALERT AND ORIENTED X4, RECEIVED DISCHARGE INSTRUCTIONS, TRANSLATED TO SENEGALESE BY ANOTHER RN, PATIENT VERBALIZED UNDERSTANDING OF DISCHARGE INSTRUCTIONS, PRESCRIPTION PROVIDED, PIV REMOVED AND COVERED WITH GAUZE AND TAPE, SKIN ASSESSMENT COMPLETED SKIN INTACT, PATIENT DENIES PAIN OR DISCOMFORT AT THIS TIME, PATIENT PICKED UP BY SON DEWAYNE, INFORMED OF DISCHARGE INSTRUCTIONS AND ALSO VERBALIZED UNDERSTANDING. BELONGINGS RECONCILED AND COMPLETE, PATIENT LEFT THE FACILITY IN NO DISTRESS ACCOMPANIED BY SON.
[2016-12-26 11:11] LABS: *SPE ALPHA-1-GLOBULIN 0.2 g/dL (0.0-0.4); *SPE ALPHA-2-GLOBULIN 0.5 g/dL (0.4-1.0); *SPE M-SPIKE Not Observed g/dL (Not Observed); *SPEGAMMA GLOBULIN 1.3 g/dL (0.4-1.8)
== END 2016-12-25 16:40 | disposition home or self-care (01) | DRG 206 ==
LOC: ER 12:21 → TELE 15:15 → MED 12-25 06:08
DX: M94.0 Chondrocostal junction syndrome [Tietze] (principal); E11.65 Type 2 diabetes mellitus with hyperglycemia; R06.00 Dyspnea, unspecified; I11.0 Hypertensive heart disease with heart failure; I50.32 Chronic diastolic (congestive) heart failure; E66.01 Morbid (severe) obesity due to excess calories; E83.42 Hypomagnesemia; K74.60 Unspecified cirrhosis of liver; E78.5 Hyperlipidemia, unspecified; Z88.0 Allergy status to penicillin; Z91.012 Allergy to eggs; Z79.4 Long term (current) use of insulin; Z79.899 Other long term (current) drug therapy; M19.90 Unspecified osteoarthritis, unspecified site; J45.909 Unspecified asthma, uncomplicated; N28.1 Cyst of kidney, acquired; N20.0 Calculus of kidney; I70.0 Atherosclerosis of aorta
CPT/HCPCS: 36415; 71010-TC; 80048-TC; 80061-TC; 82962-TC; 83735-TC; 84100-TC; 84155; 84165; 84439-TC; 84443-TC; 84484-TC; 85025-TC; 85730-TC; 93307-TC; A9502; J1650; J1815; J2270; J2785; J3475; Z7610

== ENCOUNTER 2017-01-13 15:05 | Emergency (ER) | payer MEDICARE, MEDICAID ==
[~2017-01-13] VITALS: Ht 165.1 cm; Wt 79.4 kg
[~2017-01-13 15:05] MED LIST changes: +ASPI-991 PO; -BENA20TA2 PO; +BUPR-51 PO; +FURO40TA5 PO; +ICOS1CAP PO; +INSU3INS6 SQ; +LEVE500T20 PO; +LOSA50TA3 PO; +MONT10TA22 PO; -NEBI5TAB8 PO; +POTA8TAB3 PO
--- NOTE | 2017-01-13 15:16 | NUR ---
PATIENT TO ED DT COUGH AND FEVER X 1 WK. PATIENT ARRIVED IN ED AWAKE AND ALERT,. APPEARS IN NO APPARENT DISTRESS,. RESPIRATION EVEN AND UNLABORED,. PATIENT NOTED WTITH LOW GRADE FEVER. VSS
[2017-01-13] MEDS ORDERED: IV NS 0.9% 1,000 ML BAG IV ONE (15:30)
[2017-01-13 15:45] LABS: BASOPHILS % (AUTO) 0.5 % (0.0-2.0); EOSINOPHILS # (AUTO) 0.1 /CMM (0.0-0.7); EOSINOPHILS % (AUTO) 1.8 % (0.0-6.0); HEMATOCRIT 39 % (33-45); HEMOGLOBIN 12.8 g/dL (11.5-14.8); LYMPHOCYTES # (AUTO) 1.4 /CMM (0.8-4.8); LYMPHOCYTES % (AUTO) 37.9 % (20.0-44.0); MEAN CORPUSCULAR HEMOGLOBIN 29 PG (26.0-33.0); MEAN CORPUSCULAR HGB CONC 33 g/dl (31.0-36.0); MEAN CORPUSCULAR VOLUME 86 fL (82-100); MONOCYTES # (AUTO) 0.4 /CMM (0.1-1.30); MONOCYTES % (AUTO) 10.3 % (2.0-12.0); NEUTROPHILS # (AUTO) 1.7 /CMM (1.8-8.9); NEUTROPHILS % (AUTO) 49.5 % (43.0-81.0); PLATELET COUNT (AUTO) 77 /CMM (150-450); RDW COEFFICIENT OF VARIATION 13.8 (11.5-15.0); RED BLOOD CELL COUNT(AUTO) 4.49 MIL/uL (4.0-5.2); WHITE BLOOD COUNT (AUTO) 3.6 K/uL (4.3-11.0)
--- NOTE | 2017-01-13 15:47 | NUR ---
IV ACCESS STARTED. BLOOD AND CULTURES DRAWN. MEDICATED ORDERED. REFUSES TO GIVE URINE SAMPLE AND FLU SWAB AT THIS TIME.
[2017-01-13 15:54] LABS: CARBON DIOXIDE 26 mmol/L (21-32); CHLORIDE 102 mmol/L (98-107); CREATININE 0.9 mg/dL (0.6-1.3); GLUCOSE 134 mg/dL (74-106); SODIUM SERUM 137 mmol/L (136-145); UREA NITROGEN, BLOOD 11 mg/dL (7-18)
[2017-01-13 15:57] LABS: INR 0.94 (0.87-1.13); PROTHROMBIN TIME 9.8 SECS (9.5-12.7)
[2017-01-13 16:01] LABS: ALANINE AMINOTRANSFERASE 125 U/L (12-78); ALBUMIN 3.3 g/dL (3.4-5.0); ALKALINE PHOSPHATASE 69 U/L (46-116); ASPARTATE AMINOTRANSFERASE 143 U/L (15-37); BILIRUBIN,DIRECT 0.2 mg/dL (0.0-0.2); BILIRUBIN,TOTAL 0.6 mg/dL (0.2-1.0); TOTAL PROTEIN, SERUM 7.3 g/dL (6.4-8.2); TROPONIN I < 0.017 ng/mL (0.00-0.056)
--- NOTE | 2017-01-13 17:25 | NUR ---
PT REFUSED BLOOD REDRAW.
--- NOTE | 2017-01-13 17:35 | NUR ---
IV removed. Catheter intact and site benign. Pressure and 4x4 applied to site. No bleeding noted.
--- NOTE | 2017-01-13 17:45 | NUR ---
Patient discharged to home in stable condition. Written and verbal after care instructions given. Patient verbalizes understanding of instruction.
[2017-01-13 17:47] VITALS: BP 149/88
[2017-01-13 18:05] LABS: APPEARANCE,URINE Slightly Cloudy (CLEAR); BILIRUBIN,URINE Negative (NEGATIVE); BLOOD, URINE Small Ery/uL (NEGATIVE); COLOR,URINE Yellow (YELLOW); KETONES,URINE Negative (NEGATIVE); LEUKOCYTE ESTERASE ,URINE Negative (NEGATIVE); NITRITE, URINE Negative (NEGATIVE); PH,URINE 5.5 (5.0-8.0); PROTEIN,URINE Negative (NEGATIVE); UGLUCOSE Negative (NEGATIVE); UROBILINOGEN,URINE 0.2 EU/dL (0.2)
[2017-01-13 18:28] LABS: BACTERIA,URINE Few /HPF (None Seen); SQUAMOUS EPITHELIAL CELL,UR Few /HPF (None Seen); URINE AMORPHOUS URATE Few /HPF (None Seen); WBC,URINE 2-3/HPF /HPF (0-3)
== END 2017-01-13 17:48 | disposition home or self-care (01) ==
LOC: ER 15:06
DX: J06.9 Acute upper respiratory infection, unspecified (principal); R50.9 Fever, unspecified; E11.9 Type 2 diabetes mellitus without complications; I10 Essential (primary) hypertension; I70.0 Atherosclerosis of aorta; R79.1 Abnormal coagulation profile; Z79.4 Long term (current) use of insulin; Z79.82 Long term (current) use of aspirin; Z88.0 Allergy status to penicillin; Z88.5 Allergy status to narcotic agent; Z88.6 Allergy status to analgesic agent; Z91.012 Allergy to eggs; Z91.018 Allergy to other foods
CPT/HCPCS: 36415; 71010; 80048; 80076; 81001; 83605; 84484; 85025; 85730; 87040 ×2; 87086; 87804; 93005; 96360; 99285; A4606; J7030; 81000-TC; 87400; Z7610

== ENCOUNTER 2017-08-19 22:32 | Emergency (ER) | payer MEDICARE, MEDICAID ==
[~2017-08-19] VITALS: Ht 167.6 cm; Wt 90.7 kg
[~2017-08-19 22:32] MED LIST changes: +ASPI-1152 PO; -ASPI-991 PO; +METF-442 PO; -METF10002 PO
--- NOTE | 2017-08-19 22:42 | NUR ---
PT A/OX4. C/C OF UPPER EXTREMITY, LOWER LEG P, LOWER BACK. NEG ACUTE DISTRESS. VSS. STABLE CONDITION. SAFETY MEASURES IN PLACE.
[2017-08-19] MEDS ORDERED: diphenhydrAMINE HCL 25 MG CAPSULE PO ONE (23:30)
[2017-08-19] MEDS ORDERED: diphenhydrAMINE HCL 25 MG CAPSULE ONE (23:32)
--- NOTE | 2017-08-19 23:36 | NUR ---
REGIONAL TRANSFER LIAISON IS AT THE BEDSIDE FOR BLOOD DRAW.
--- NOTE | 2017-08-19 23:37 | NUR ---
PT REC'D MEDICATION ORDERED.
--- NOTE | 2017-08-19 23:37 | NUR ---
CXR IN PROGRESS AT THE BEDSIDE.
[2017-08-19 23:43] LABS: BASOPHILS % (AUTO) 0.6 % (0.0-2.0); EOSINOPHILS % (AUTO) 2.1 % (0.0-6.0); HEMATOCRIT 37 % (33-45); HEMOGLOBIN 12.5 g/dL (11.5-14.8); LYMPHOCYTES % (AUTO) 30.2 % (20.0-44.0); MEAN CORPUSCULAR HGB CONC 34 g/dl (31.0-36.0); MEAN CORPUSCULAR VOLUME 90 fL (82-100); MONOCYTES # (AUTO) 0.5 /CMM (0.1-1.30); MONOCYTES % (AUTO) 7.3 % (2.0-12.0); NEUTROPHILS # (AUTO) 3.9 /CMM (1.8-8.9); NEUTROPHILS % (AUTO) 59.8 % (43.0-81.0); PLATELET COUNT (AUTO) 111 /CMM (150-450); RDW COEFFICIENT OF VARIATION 14.6 (11.5-15.0); RED BLOOD CELL COUNT(AUTO) 4.07 MIL/uL (4.0-5.2); WHITE BLOOD COUNT (AUTO) 6.5 K/uL (4.3-11.0)
[2017-08-19 23:52] LABS: CALCIUM, SERUM 8.9 mg/dL (8.5-10.1); CARBON DIOXIDE 23 mmol/L (21-32); CHLORIDE 103 mmol/L (98-107); CREATININE 1.1 mg/dL (0.6-1.3); GLUCOSE 146 mg/dL (74-106); POTASSIUM 4.1 mmol/L (3.5-5.1); SODIUM SERUM 139 mmol/L (136-145); UREA NITROGEN, BLOOD 17 mg/dL (7-18)
[2017-08-20] LABS: ALANINE AMINOTRANSFERASE 72 U/L (12-78); ALBUMIN 3.4 g/dL (3.4-5.0); ALKALINE PHOSPHATASE 72 U/L (46-116); ASPARTATE AMINOTRANSFERASE 63 U/L (15-37); BILIRUBIN,DIRECT 0.2 mg/dL (0.0-0.2); BILIRUBIN,TOTAL 0.6 mg/dL (0.2-1.0); TOTAL PROTEIN, SERUM 7.7 g/dL (6.4-8.2)
[2017-08-20] MEDS ORDERED: NAPROXEN 250 MG TABLET PO ONE
[2017-08-20] MEDS ORDERED: NAPROXEN 250 MG TABLET ONE (00:02)
[2017-08-20 00:46] VITALS: BP 148/78
== END 2017-08-20 00:39 | disposition home or self-care (01) ==
LOC: ER 22:35
DX: L29.8 Other pruritus (principal); R21 Rash and other nonspecific skin eruption; G89.29 Other chronic pain; R10.9 Unspecified abdominal pain; I10 Essential (primary) hypertension; E11.9 Type 2 diabetes mellitus without complications; Z88.0 Allergy status to penicillin; Z88.5 Allergy status to narcotic agent; Z88.6 Allergy status to analgesic agent; Z91.018 Allergy to other foods; Z91.012 Allergy to eggs; Z79.82 Long term (current) use of aspirin; Z79.84 Long term (current) use of oral hypoglycemic drugs
CPT/HCPCS: 36415; 71045; 80048; 80076; 85025; 99285; A4606; Q0163; Z7610

== ENCOUNTER 2017-09-03 17:44 | Inpatient (IN) | payer MEDICARE, MEDICAID ==
[~2017-09-03] VITALS: Ht 165.1 cm; Wt 122.9 kg
[~2017-09-03 17:44] MED LIST changes: -METF-442 PO; +METF10004 PO
--- NOTE | 2017-09-03 18:07 | NUR ---
[id number] FROM HOME: CHEST PAIN SINCE 1600. ASA 162, NITRO 0.4 x 2 GIVEN IN FIELD WITH RELIEF. PATIENT IS AWAKE AND ALERT. NOT IN DISTRESS. SKIN IS WARM TO TOUCH AND NON DIAPHORETIC. PATIENT IS AFEBRILE. SINGAPOREAN SPEAKING ONLY
[2017-09-03 18:44] LABS: BASOPHILS % (AUTO) 0.9 % (0.0-2.0); EOSINOPHILS % (AUTO) 2.5 % (0.0-6.0); HEMATOCRIT 34 % (33-45); HEMOGLOBIN 11.7 g/dL (11.5-14.8); LYMPHOCYTES # (AUTO) 1.5 /CMM (0.8-4.8); LYMPHOCYTES % (AUTO) 29.9 % (20.0-44.0); MEAN CORPUSCULAR HEMOGLOBIN 31 PG (26.0-33.0); MEAN CORPUSCULAR HGB CONC 35 g/dl (31.0-36.0); MEAN CORPUSCULAR VOLUME 88 fL (82-100); MONOCYTES # (AUTO) 0.4 /CMM (0.1-1.30); MONOCYTES % (AUTO) 8.1 % (2.0-12.0); NEUTROPHILS # (AUTO) 2.9 /CMM (1.8-8.9); NEUTROPHILS % (AUTO) 58.6 % (43.0-81.0); PLATELET COUNT (AUTO) 75 /CMM (150-450); RDW COEFFICIENT OF VARIATION 13.7 (11.5-15.0); RED BLOOD CELL COUNT(AUTO) 3.81 MIL/uL (4.0-5.2); WHITE BLOOD COUNT (AUTO) 4.9 K/uL (4.3-11.0)
[2017-09-03 18:45] LABS: CALCIUM, SERUM 9.3 mg/dL (8.5-10.1); CARBON DIOXIDE 26 mmol/L (21-32); CHLORIDE 108 mmol/L (98-107); GLUCOSE 189 mg/dL (74-106); POTASSIUM 3.7 mmol/L (3.5-5.1); SODIUM SERUM 141 mmol/L (136-145); UREA NITROGEN, BLOOD 20 mg/dL (7-18)
[2017-09-03 18:50] LABS: INR 1.01 (0.85-1.15)
[2017-09-03 18:52] LABS: TROPONIN I < 0.017 ng/mL (0.00-0.056)
[2017-09-03 18:57] LABS: B-TYPE NATRIURETIC PEPTIDE 311 PG/ML (0-125)
[2017-09-03 19:58] LABS: BAND % (MANUAL) 2 % (0.0-5.0); EOSINOPHILS % (MANUAL) 6 % (0-4); LYMPHOCYTES % (MANUAL) 26 % (16-48); MONOCYTES % (MANUAL) 6 % (0-11.0); NEUTROPHILS % (MANUAL) 60 (42-76)
--- NOTE | 2017-09-03 20:00 | NUR ---
CALLED NURSE SUP FOR TELE BED
--- NOTE | 2017-09-03 20:01 | NUR ---
PAGED EPIC FOR PANEL - PRODUCTION LINE OPERATOR IVONNE
--- NOTE | 2017-09-03 20:41 | NUR ---
REPORT GIVEN TO RN
[2017-09-03] MEDS ORDERED: MAGNESIUM OXIDE 400 MG TABLET PO ONE ×2 (21:00)
--- NOTE | 2017-09-03 21:09 | NUR ---
MS/RN RECEIVE PATIENT FROM E.R. VIA RLYDIA ACCOMPANIED BY FAMILY MEMBERS, PATIENT IS AWAKE, ALERT, ORIENTED, NO C/O PAIN, NO SIGNS OF DISTRESS NOTED. ADMISSION DONE PER PROTOCOL, PATIENT REFUSED SKIN CHECK/PHOTOS. PLAN OF CARE DISCUSSED WITH THE PATIENT AND THE FAMILY MEMBERS, VERBALIZED UNDERSTANDING AND AGREEMENT. TAUGHT THE USE OF CALL LIGHT AND PLACED IT AT BEDSIDE WITHIN REACH. WILL MONITOR.
[2017-09-03 21:10] VITALS: BP 159/81
[2017-09-03] MEDS ORDERED: DEXTROSE 50%-WATER 50 ML DISP.SYRIN IV PRN (22:30)
[2017-09-03] MEDS ORDERED: ONDANSETRON HCL/PF 4 MG/2 ML VIAL IVP PRN (22:30)
[2017-09-03] MEDS ORDERED: ACETAMINOPHEN 325 MG TABLET PO PRN (22:30)
[2017-09-03] MEDS ORDERED: CLONIDINE HCL 0.2MG/24H PTWK 1 EA PATCH TD SCH (22:30)
[2017-09-03] MEDS ORDERED: MORPHINE SULFATE INJ 2 MG/ML DISP.SYRIN IV PRN (22:30)
[2017-09-03] MEDS: LEVETIRACETAM (250 MG) 250 MG TABLET PO SCH (22:49)
--- NOTE | 2017-09-03 23:58 | NUR ---
MS/RN DR. CORONADO IS AT BEDSIDE AT THIS TIME.
[2017-09-04] VITALS: BP 137/67
[2017-09-04] MEDS ORDERED: CLONIDINE HCL 0.1 MG TABLET PO PRN
[2017-09-04] MEDS ORDERED: NITROGLYCERIN 0.4 MG/TAB BOTTLE SL PRN (02:00)
--- NOTE | 2017-09-04 02:42 | NUR ---
MS/RN PATIENT C/O PAIN IN CHEST AREA UNDER BREAST UNABLE TO GIVE PAIN LEVEL, PATIENT HAS AN ACTIVE ORDER FOR MORPHINE BUT PATIENT IS ALLERGIC TO CODEINE, INFORMED DR. CORONADO AND RECEIVED ORDER FOR NITROGLYCERINE SL. BUT UNABLE TO GIVE MED, PATIENT WAS ALREADY SLEEPING WHEN I CAME BACK TO HER ROOM. WILL MONITOR.
[2017-09-04 04:00] VITALS: BP 122/45
--- NOTE | 2017-09-04 06:16 | NUR ---
MS/RN PATIENT IS AWAKE AT THIS TIME, SITTING ON CHAIR AT BEDSIDE, COMFORTABLE, NO C/O NO DISTRESS NOTE, ALL NEEDS ATTENDED AT THIS TIME, WILL CONTINUE TO MONITOR.
--- NOTE | 2017-09-04 06:41 | NUR ---
MS/RN PATIENT C/O PAIN INI CHEST AREA UNDERBREAST UNABLE TO GIVE PAIN LEVEL, NTG 0.4 SL WAS GIVEN ORDERED. WILL GIVE ANOTHER DOSE AFTER 10 MINUTES ORDERED IF PAIN IS STILL THERE.
[2017-09-04] MEDS: BLOOD SUGAR DIAGNOSTIC 1 EACH STRIP IN SCH ×4 (06:43→21:07)
[2017-09-04 06:46] LABS: TROPONIN I < 0.017 ng/mL (0.00-0.056)
--- NOTE | 2017-09-04 06:51 | NUR ---
MS/RN PATIENT IS SLEEPING AT THIS TIME, AROUSABE, APPEAR COMFORTABLE, NO DISTRESS NOTED,WILL CONTINUE TO MONITOR.
[2017-09-04 07:06] LABS: ALANINE AMINOTRANSFERASE 57 U/L (12-78); ALBUMIN 2.9 g/dL (3.4-5.0); ALKALINE PHOSPHATASE 51 U/L (46-116); ASPARTATE AMINOTRANSFERASE 45 U/L (15-37); BILIRUBIN,TOTAL 0.6 mg/dL (0.2-1.0); CALCIUM, SERUM 8.8 mg/dL (8.5-10.1); CARBON DIOXIDE 26 mmol/L (21-32); CHLORIDE 108 mmol/L (98-107); CREATININE 0.8 mg/dL (0.6-1.3); GLUCOSE 103 mg/dL (74-106); MAGNESIUM 1.3 mg/dL (1.8-2.4); POTASSIUM 3.7 mmol/L (3.5-5.1); SODIUM SERUM 143 mmol/L (136-145); TOTAL PROTEIN, SERUM 6.7 g/dL (6.4-8.2); UREA NITROGEN, BLOOD 20 mg/dL (7-18)
[2017-09-04 07:07] LABS: CHOLESTEROL 118 mg/dL (<200); HDL CHOLESTEROL 51 mg/dL (40-60); LDL 58 mg/dL (0-99); THYROID STIMULATING HORMONE 3.914 uIU/mL (0.358-3.74); TRIGLYCERIDES 75 mg/dL (30-150)
--- NOTE | 2017-09-04 07:20 | NUR ---
FINE WIRE DRAWER OPENING NOTE RECEIVED PATIENT IN BED, SLEEPING, EASILY AROUSED WITH VERBAL STIMULI, ON 2 L O2 VIA NC. TOLERATING WELL. IN NO APPARENT DISTRESS OR DISCOMFORT AT THIS TIME. REPARATIONS EVEN AND UNLABORED. PATIENT IS ON TELE MONITORING WITH SINUS RHYTHM. L HAND 20G IVC, SL. PATIENT AND INTACT. PATIENT IS KYRGYZ SPEAKING, ABLE TO VERBALIZE NEEDS IN KYRGYZ. SAFETY MEASURES IN PLACE, BED IN LOW LOCKED POSITION, SIDE RAILS UP X2, CALL LIGHT WITHIN EASY REACH. WILL CONTINUE TO MONITOR.
[2017-09-04 08:00] VITALS: BP 140/66
[2017-09-04 08:10] LABS: BASOPHILS % (AUTO) 0.6 % (0.0-2.0); EOSINOPHILS % (AUTO) 3.6 % (0.0-6.0); HEMATOCRIT 32 % (33-45); HEMOGLOBIN 11.4 g/dL (11.5-14.8); LYMPHOCYTES # (AUTO) 1.3 /CMM (0.8-4.8); LYMPHOCYTES % (AUTO) 35.5 % (20.0-44.0); MEAN CORPUSCULAR HEMOGLOBIN 31 PG (26.0-33.0); MEAN CORPUSCULAR HGB CONC 36 g/dl (31.0-36.0); MEAN CORPUSCULAR VOLUME 87 fL (82-100); MONOCYTES # (AUTO) 0.3 /CMM (0.1-1.30); MONOCYTES % (AUTO) 7.7 % (2.0-12.0); NEUTROPHILS # (AUTO) 1.9 /CMM (1.8-8.9); NEUTROPHILS % (AUTO) 52.6 % (43.0-81.0); PLATELET COUNT (AUTO) 68 /CMM (150-450); RDW COEFFICIENT OF VARIATION 13.5 (11.5-15.0); RED BLOOD CELL COUNT(AUTO) 3.68 MIL/uL (4.0-5.2); WHITE BLOOD COUNT (AUTO) 3.6 K/uL (4.3-11.0)
[2017-09-04] MEDS: Magnesium 1GM/D5W 100ML PREMIX 100 ML IV SCH ×4 (08:33→11:22)
[2017-09-04] MEDS: PANTOPRAZOLE 40 MG TABLET.DR PO SCH (08:36)
[2017-09-04] MEDS: BUPROPION XL 150 MG TAB.ER.24 PO SCH (08:37)
[2017-09-04] MEDS: ASPIRIN EC 81 MG TABLET.DR PO SCH (08:37)
[2017-09-04] MEDS: LEVETIRACETAM (250 MG) 250 MG TABLET PO SCH ×2 (08:37→21:07)
[2017-09-04] MEDS: GLIMEPIRIDE 4 MG TABLET PO SCH ×2 (08:37→16:44)
[2017-09-04] MEDS: MONTELUKAST SODIUM (10MG) 10 MG TABLET PO SCH (08:38)
[2017-09-04] MEDS: GABAPENTIN 100 MG CAPSULE PO SCH ×2 (08:39→16:44)
[2017-09-04] MEDS: LINAGLIPTIN 5 MG TABLET PO SCH (08:39)
[2017-09-04] MEDS: FUROSEMIDE 40 MG TABLET PO SCH (08:39)
[2017-09-04] MEDS: POTASSIUM CHLORIDE 10 MEQ TABLET.SA PO SCH (08:39)
[2017-09-04] MEDS: INSULIN GLARGINE, 100 UNIT/ML CARTRIDGE SQ SCH (08:57)
[2017-09-04] MEDS ORDERED: Medication Not On Formulary EA (Icosapent Ethyl (Vascepa) 2 GM) PO SCH (09:00)
[2017-09-04] MEDS ORDERED: LOSARTAN POTASSIUM 50 MG TABLET PO SCH (09:00)
[2017-09-04 10:06] LABS: EOSINOPHILS % (MANUAL) 3 % (0-4); LYMPHOCYTES % (MANUAL) 27 % (16-48); MONOCYTES % (MANUAL) 4 % (0-11.0); NEUTROPHILS % (MANUAL) 66 (42-76)
[2017-09-04] MEDS ORDERED: KETOROLAC TROMETHAMINE INJ 30 MG/ML VIAL IV PRN (11:00)
[2017-09-04] MEDS: INSULIN REGULAR, HUMAN 100 UNIT/ML 3 ML VIAL SQ PRN (11:25)
[2017-09-04 16:00] VITALS: BP 111/51
[2017-09-04] MEDS: METFORMIN 500 MG TABLET PO SCH (16:44)
--- NOTE | 2017-09-04 18:50 | NUR ---
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 REPORTED TO ROGE YOUNGER NP. RECEIVED TELEPHONE ORDER FOR CT HEAD WO CONTRAST. ORDER READ BACK AND VERIFIED. WILL CARRY OUT ORDERS PRESCRIBED.
--- NOTE | 2017-09-04 18:58 | NUR ---
MS RN CLOSING NOTE PATIENT IN BED, SLEEPING, EASILY AROUSED WITH VERBAL STIMULI, ON ROOM AIR AT THIS TIME. TOLERATING WELL. IN NO APPARENT DISTRESS OR DISCOMFORT AT THIS TIME. REPARATIONS EVEN AND UNLABORED. PATIENT WITH L HAND 20G IVC, SL. PATENT AND INTACT. PATIENT IS PERUVIAN SPEAKING, ABLE TO VERBALIZE NEEDS IN PERUVIAN. ALL NEEDS ATTENDED, NURSING INTERVENTIONS IMPLEMENTED NEEDED. KEPT CLEAN AND COMFORTABLE SAFETY MEASURES IN PLACE, BED IN LOW LOCKED POSITION, SIDE RAILS UP X2, CALL LIGHT WITHIN EASY REACH. WILL ENDORSE TO PM NURSE FOR MICHAEL.
[2017-09-04 20:00] VITALS: BP 126/64
--- NOTE | 2017-09-05 06:14 | NUR ---
MS RN NOTES AWAKE & RESPONSIVE. NOT IN ANY DISTRESS. NO SOB NOTED. DENIES ANY PAIN OR DISCOMFORT AT THIS TIME. WITH IV-HL PATENT & INTACT. MONITORED ACCORDINGLY. CALL LIGHT WITHIN REACH. BED IN LOWEST POSITION. SR UP X 2 FOR SAFETY. WILL ENDORSE TO NEXT SHIFT.
[2017-09-05] MEDS: BLOOD SUGAR DIAGNOSTIC 1 EACH STRIP IN SCH ×2 (06:19→11:47)
--- NOTE | 2017-09-05 07:35 | NUR ---
MS RN OPENING NOTE RECEIVED PATIENT IN BED, SLEEPING, EASILY AROUSED WITH VERBAL STIMULI, ON ROOM AIR AT THIS TIME, TOLERATING WELL. IN NO APPARENT DISTRESS OR DISCOMFORT AT THIS TIME. RESPIRATIONS EVEN AND UNLABORED. L HAND 20G IVC, SL. PATIENT AND INTACT. PATIENT IS TURKMEN SPEAKING, ABLE TO VERBALIZE NEEDS IN TURKMEN. KEPT CLEAN AND COMFORTABLE, ALL NEEDS ATTENDED. SAFETY MEASURES IN PLACE, BED IN LOW LOCKED POSITION, SIDE RAILS UP X2, CALL LIGHT WITHIN EASY REACH. WILL CONTINUE TO MONITOR.
[2017-09-05 08:00] VITALS: BP 170/76
[2017-09-05] MEDS ORDERED: IBUPROFEN 200 MG TABLET PO PRN (08:30)
[2017-09-05] MEDS: METFORMIN 500 MG TABLET PO SCH (08:41)
[2017-09-05] MEDS: PANTOPRAZOLE 40 MG TABLET.DR PO SCH (08:41)
[2017-09-05] MEDS: FUROSEMIDE 40 MG TABLET PO SCH (08:42)
[2017-09-05] MEDS: POTASSIUM CHLORIDE 10 MEQ TABLET.SA PO SCH (08:42)
[2017-09-05] MEDS: LINAGLIPTIN 5 MG TABLET PO SCH (08:42)
[2017-09-05] MEDS: GLIMEPIRIDE 4 MG TABLET PO SCH (08:42)
[2017-09-05] MEDS: ASPIRIN EC 81 MG TABLET.DR PO SCH (08:42)
[2017-09-05] MEDS: GABAPENTIN 100 MG CAPSULE PO SCH (08:42)
[2017-09-05] MEDS: LEVETIRACETAM (250 MG) 250 MG TABLET PO SCH (08:42)
[2017-09-05] MEDS: MONTELUKAST SODIUM (10MG) 10 MG TABLET PO SCH (08:42)
[2017-09-05] MEDS: INSULIN GLARGINE, 100 UNIT/ML CARTRIDGE SQ SCH (08:45)
[2017-09-05] MEDS: BUPROPION XL 150 MG TAB.ER.24 PO SCH (08:48)
[2017-09-05 08:49] VITALS: BP 150/70
[2017-09-05] MEDS ORDERED: VALSARTAN 80 MG TABLET PO SCH (09:00)
[2017-09-05] MEDS ORDERED: IBUP-51 PO (11:13)
[2017-09-05] MEDS ORDERED: VALS80TA2 PO (11:13)
[2017-09-05] MEDS: INSULIN REGULAR, HUMAN 100 UNIT/ML 3 ML VIAL SQ PRN (11:50)
--- NOTE | 2017-09-05 19:35 | NUR ---
MS JEWELRY CASTING MODEL MAKER NOTE DISCHARGE ORDER RECEIVED. PATIENT IS STABLE, VITAL SIGNS STABLE, ALERT ORIENTED X4. ON ROOM AIR, IN NO APPARENT DISTRESS OR DISCOMFORT AT THIS TIME. DISCHARGE WAS DISCUSSED WITH THE PATIENT BY ROGE YOUNGER NP. DC INSTRUCTIONS GIVEN, EDUCATION PROVIDED REGARDING NEW AND EXISTING MEDICATIONS, DIET COMPLIANCE PAIN MANAGEMENT AND ALL OTHER DOCTOR'S ORDER'S. VALUABLES LIST REVIEWED, BELONGINGS CHECKED AND ACCOUNTED FOR. ALL DUE MEDICATIONS GIVEN. PATIENT SINGED DISCHARGE PAPERS AND VERBALIZED UNDERSTANDING OF INSTRUCTIONS, ALL MEDICAL RECORDS COPIES PROVIDED. IV REMOVED, TIP INTACT. ID BAND REMOVED. PATIENT LEFT THE UNIT AT 1340 ON A WHEELCHAIR, ACCOMPANIED BY FLIP SUTTON AND PATIENT'S SON.
== END 2017-09-05 13:40 | disposition home or self-care (01) | DRG 205 ==
LOC: ER 17:50 → TELE 21:39 → MED 09-04 11:49
PROVIDERS: ADMIT Internal Medicine; ATTEND Internal Medicine
DX: M94.0 Chondrocostal junction syndrome [Tietze] (principal); I50.33 Acute on chronic diastolic (congestive) heart failure; D68.59 Other primary thrombophilia; Z68.42 Body mass index [BMI] 45.0-49.9, adult; E66.01 Morbid (severe) obesity due to excess calories; Z88.0 Allergy status to penicillin; D32.9 Benign neoplasm of meninges, unspecified; J45.909 Unspecified asthma, uncomplicated; Z87.891 Personal history of nicotine dependence; G40.909 Epilepsy, unspecified, not intractable, without status epilepticus; F32.9 Major depressive disorder, single episode, unspecified; F41.9 Anxiety disorder, unspecified; E83.42 Hypomagnesemia; G47.33 Obstructive sleep apnea (adult) (pediatric); E11.9 Type 2 diabetes mellitus without complications; R07.81 Pleurodynia; R60.9 Edema, unspecified; E78.5 Hyperlipidemia, unspecified; D69.6 Thrombocytopenia, unspecified; I11.0 Hypertensive heart disease with heart failure
CPT/HCPCS: 36415; 70450-TC; 71045-TC; 76770-TC; 80048-TC; 80053-TC; 80061-TC; 82306; 82728-TC; 82962-TC; 83540-TC; 83735-TC; 83880; 84100-TC; 84439-TC; 84443-TC; 84484-TC; 85025-TC; 85730-TC; 87081-TC; 93307-TC; A4606; J1815; J1885; J3475; J7030; Z7610

== ENCOUNTER 2017-10-05 05:56 | Emergency (ER) | payer MEDICARE, MEDICAID ==
[~2017-10-05] VITALS: Ht 162.6 cm; Wt 108.9 kg
[~2017-10-05 05:56] MED LIST changes: +IBUP-51 PO; +VALS80TA2 PO
--- NOTE | 2017-10-05 06:08 | NUR ---
PT BB FAMILY FROM HOME C/C BILATERAL UPPER ABD PAIN RADIATING TO UPPER BACK. PER PT, THIS HAS BEEN PERSISTING FOR "A FEW MONTHS WITH NO RELIEF". PT DESCRIBES PAIN CRAMPING IN NATURE 10/03. PT DENIES N/V/D. SKIN WNL. PT IS AAOX4, MOSTLY FRENCH SPEAKING. NO S/S OF ACUTE DISTRESS NOTED. RESP EVEN AND UNLABORED. PT PLACED ON PROFESSIONAL SECURITY OFFICER AND POX. PT SAFETY AND COMFORT MEASURES IN PLACE. AWAITING MD FOR EVAL. FAMILY MEMBERS BEDSIDE WITH PT
[2017-10-05] MEDS ORDERED: KETOROLAC TROMETHAMINE INJ 30 MG/ML VIAL ONE (06:12)
[2017-10-05] MEDS ORDERED: ONDANSETRON HCL/PF 4 MG/2 ML VIAL IVP ONE (06:30)
[2017-10-05] MEDS ORDERED: KETOROLAC TROMETHAMINE INJ 60 MG/2 ML VIAL IM ONE (06:30)
[2017-10-05 06:34] LABS: BASOPHILS % (AUTO) 0.4 % (0.0-2.0); EOSINOPHILS % (AUTO) 2.3 % (0.0-6.0); HEMATOCRIT 36 % (33-45); HEMOGLOBIN 12.3 g/dL (11.5-14.8); LYMPHOCYTES # (AUTO) 1.7 /CMM (0.8-4.8); MEAN CORPUSCULAR HEMOGLOBIN 30 PG (26.0-33.0); MEAN CORPUSCULAR HGB CONC 34 g/dl (31.0-36.0); MEAN CORPUSCULAR VOLUME 90 fL (82-100); MONOCYTES # (AUTO) 0.5 /CMM (0.1-1.30); NEUTROPHILS # (AUTO) 2.8 /CMM (1.8-8.9); NEUTROPHILS % (AUTO) 55.3 % (43.0-81.0); PLATELET COUNT (AUTO) 90 /CMM (150-450); RDW COEFFICIENT OF VARIATION 14.9 (11.5-15.0); RED BLOOD CELL COUNT(AUTO) 4.05 MIL/uL (4.0-5.2)
[2017-10-05] MEDS ORDERED: ONDANSETRON HCL/PF 4 MG/2 ML VIAL ONE (06:42)
[2017-10-05 06:46] LABS: CALCIUM, SERUM 8.9 mg/dL (8.5-10.1); CARBON DIOXIDE 28 mmol/L (21-32); CHLORIDE 105 mmol/L (98-107); CREATININE 1.2 mg/dL (0.6-1.3); GLUCOSE 188 mg/dL (74-106); POTASSIUM 3.8 mmol/L (3.5-5.1); SODIUM SERUM 141 mmol/L (136-145); UREA NITROGEN, BLOOD 25 mg/dL (7-18)
[2017-10-05 06:53] LABS: ALANINE AMINOTRANSFERASE 72 U/L (12-78); ALBUMIN 3.1 g/dL (3.4-5.0); ALKALINE PHOSPHATASE 78 U/L (46-116); ASPARTATE AMINOTRANSFERASE 66 U/L (15-37); BILIRUBIN,DIRECT 0.2 mg/dL (0.0-0.2); BILIRUBIN,TOTAL 0.6 mg/dL (0.2-1.0); LIPASE 427 U/L (73-393); TOTAL PROTEIN, SERUM 7.5 g/dL (6.4-8.2)
[2017-10-05 06:54] LABS: TROPONIN I < 0.017 ng/mL (0.00-0.056)
[2017-10-05 06:59] LABS: APPEARANCE,URINE SL CLOUDY (CLEAR); BILIRUBIN,URINE NEGATIVE (NEGATIVE); BLOOD, URINE TRACE Ery/uL (NEGATIVE); COLOR,URINE YELLOW (YELLOW); KETONES,URINE NEGATIVE (NEGATIVE); LEUKOCYTE ESTERASE ,URINE 1+ (NEGATIVE); NITRITE, URINE NEGATIVE (NEGATIVE); PH,URINE 5.5 (5.0-8.0); PROTEIN,URINE NEGATIVE (NEGATIVE); UGLUCOSE NEGATIVE (NEGATIVE)
[2017-10-05 07:04] LABS: BACTERIA,URINE Few /HPF (None Seen); RBC,URINE 0-2 /HPF (0-2)
[2017-10-05 07:05] LABS: SQUAMOUS EPITHELIAL CELL,UR Moderate /HPF (None Seen)
[2017-10-05 07:21] LABS: EOSINOPHILS % (MANUAL) 2 % (0-4); LYMPHOCYTES % (MANUAL) 21 % (16-48); MONOCYTES % (MANUAL) 7 % (0-11.0); NEUTROPHILS % (MANUAL) 70 (42-76)
[2017-10-05] MEDS ORDERED: LEVOFLOXACIN 750 MG /D5W 150ML 150 ML IV ONE (07:27)
--- NOTE | 2017-10-05 07:28 | NUR ---
PT TO CT
[2017-10-05] MEDS ORDERED: LEVOFLOXACIN 750 MG /D5W 150ML 750 MG in PREMIX 1 EA IV SCH (07:30)
--- NOTE | 2017-10-05 07:32 | NUR ---
TRIED CALLING DAUGHTER FOR FURTHER INFORMATION REGARDING PT'S HX FOR ALLERGIES, NO REPSPONS.
--- NOTE | 2017-10-05 07:35 | NUR ---
REPORT GIVEN TO ZEYAD LINN FOR MICHAEL.
--- NOTE | 2017-10-05 08:40 | NUR ---
CALLED PT'S FAMILY FOR DISCHARGE.
--- NOTE | 2017-10-05 09:50 | NUR ---
IV removed. Catheter intact and site benign. Pressure and 4x4 applied to site. No bleeding noted.
--- NOTE | 2017-10-05 10:14 | NUR ---
Patient discharged to home in stable condition. Written and verbal after care instructions given. Patient verbalizes understanding of instruction.
[2017-10-05 10:17] VITALS: BP 128/77
== END 2017-10-05 10:20 | disposition home or self-care (01) ==
LOC: ER 05:57
DX: N39.0 Urinary tract infection, site not specified (principal); R74.8 Abnormal levels of other serum enzymes; M54.9 Dorsalgia, unspecified; I10 Essential (primary) hypertension; E11.9 Type 2 diabetes mellitus without complications; Z88.0 Allergy status to penicillin; Z88.5 Allergy status to narcotic agent; Z88.6 Allergy status to analgesic agent; Z91.012 Allergy to eggs; Z91.018 Allergy to other foods; Z79.82 Long term (current) use of aspirin; Z79.4 Long term (current) use of insulin
CPT/HCPCS: 36415; 74176; 76705; 80048; 80076; 81001; 83605; 83690; 84484; 85025; 87077; 87086; 87186; 93005; 96365; 96375; 99285; A4606; J1956; J2405; 81000-TC; A4216; J1885; Z7610

== ENCOUNTER 2018-05-23 01:45 | Inpatient (IN) | payer MEDICARE, MEDICAID ==
[~2018-05-23] VITALS: Ht 170.2 cm; Wt 121.6 kg
[~2018-05-23 01:45] MED LIST changes: +METF-442 PO; -METF10004 PO
--- NOTE | 2018-05-23 01:53 | NUR ---
bb son to er; c/o chest pain, show woke up with pressure-like chest pain this morning. The patient was brought by her son to er
[2018-05-23 02:09] LABS: BASOPHILS % (AUTO) 0.5 % (0.0-2.0); EOSINOPHILS % (AUTO) 3.1 % (0.0-6.0); HEMATOCRIT 38 % (33-45); HEMOGLOBIN 12.9 g/dL (11.5-14.8); LYMPHOCYTES # (AUTO) 1.6 /CMM (0.8-4.8); LYMPHOCYTES % (AUTO) 31.4 % (20.0-44.0); MEAN CORPUSCULAR HGB CONC 34 g/dl (31.0-36.0); MEAN CORPUSCULAR VOLUME 89 fL (82-100); MONOCYTES # (AUTO) 0.5 /CMM (0.1-1.30); MONOCYTES % (AUTO) 9.6 % (2.0-12.0); NEUTROPHILS # (AUTO) 2.8 /CMM (1.8-8.9); NEUTROPHILS % (AUTO) 55.4 % (43.0-81.0); PLATELET COUNT (AUTO) 85 /CMM (150-450); RED BLOOD CELL COUNT(AUTO) 4.23 MIL/uL (4.0-5.2); WHITE BLOOD COUNT (AUTO) 5.1 K/uL (4.3-11.0)
[2018-05-23 02:19] LABS: CALCIUM, SERUM 8.9 mg/dL (8.5-10.1); CARBON DIOXIDE 22 mmol/L (21-32); CHLORIDE 106 mmol/L (98-107); GLUCOSE 150 mg/dL (74-106); SODIUM SERUM 140 mmol/L (136-145); UREA NITROGEN, BLOOD 17 mg/dL (7-18)
[2018-05-23] MEDS ORDERED: NITROGLYCERIN PACKET 1 GM PACKET TOP ONE (02:30)
[2018-05-23] MEDS ORDERED: ASPIRIN 325 MG TABLET PO ONE (02:30)
[2018-05-23 02:31] LABS: B-TYPE NATRIURETIC PEPTIDE 218 PG/ML (0-125)
[2018-05-23] MEDS ORDERED: MAGNESIUM OXIDE 400 MG TABLET PO ONE (03:00)
[2018-05-23 03:20] LABS: EOSINOPHILS % (MANUAL) 5 % (0-4); LYMPHOCYTES % (MANUAL) 22 % (16-48); MONOCYTES % (MANUAL) 8 % (0-11.0); NEUTROPHILS % (MANUAL) 65 (42-76)
--- NOTE | 2018-05-23 03:29 | NUR ---
report given to ZEYAD Parrish, continue plan of care
[2018-05-23 03:41] VITALS: BP 131/75
--- NOTE | 2018-05-23 03:41 | NUR ---
ASSISTANT IN NURSING NOTES ADMITTED 82 Y/O A/OX 4 VIETNAMESE SPEAKING , AMBULATORY WITH ADMITTING DX OF CHEST PAIN , NO SOB NO DISTRESS NOTED . BODY CHECK DONE , SKIN INTACT , ALL NEEDS ATTENDED TOO CALL LIGHT WITHIN REACH , KEPT PTS CLEAN DRY AND COMFORTABLE. WILL ENDORSED TO RN DAY SHIFT FOR CONTINUITY OF CARE.
[2018-05-23] MEDS ORDERED: MORPHINE SULFATE INJ 2 MG/ML DISP.SYRIN IV PRN (04:30)
[2018-05-23] MEDS ORDERED: ONDANSETRON HCL/PF 4 MG/2 ML VIAL IVP PRN (04:30)
[2018-05-23] MEDS ORDERED: NITROGLYCERIN 0.4 MG/TAB BOTTLE SL PRN (04:30)
[2018-05-23] MEDS ORDERED: CLONIDINE HCL 0.2MG/24H PTWK 1 EA PATCH TD SCH (04:30)
--- NOTE | 2018-05-23 07:15 | NUR ---
PROGRAM SERVICES ASSISTANT INITIAL NOTES RECEIVED PT SLEEPING IN BED, BUT EASY TO AROUSE. AWAKE ALERT X4, ON TELE SR ON THE MONITOR, ON 2LITERS VIA NC, TOLERATING WELL, NO SOB, PATIENT IS COMPLAINING OF HEADACHE 09/02. IV SITE R HAND 18G, FLUSHING WELL, SITE CDI. CALL LIGHT WITHIN REACH. PT AMBULATORY WITH ASSIST,. BED LOCKED AND IN LOWEST POSITION. WILL CONTINUE TO MONITOR PT.
[2018-05-23 08:00] VITALS: BP_SYST 121; BP_DIAS 51; BP_DIAS 67
[2018-05-23] MEDS: ASPIRIN 81 MG TAB.CHEW PO SCH (08:27)
[2018-05-23] MEDS: GABAPENTIN 100 MG CAPSULE PO SCH ×2 (08:27→17:15)
[2018-05-23] MEDS: MONTELUKAST SODIUM (10MG) 10 MG TABLET PO SCH (08:27)
[2018-05-23] MEDS: IBUPROFEN 200 MG TABLET PO PRN (08:28)
[2018-05-23] MEDS: POTASSIUM CHLORIDE 10 MEQ TABLET.SA PO SCH (08:28)
[2018-05-23] MEDS: METFORMIN 500 MG TABLET PO SCH ×2 (08:31→17:15)
[2018-05-23] MEDS: GLIMEPIRIDE 4 MG TABLET PO SCH ×2 (08:31→17:15)
[2018-05-23] MEDS: BUPROPION XL 150 MG TAB.ER.24 PO SCH (08:31)
[2018-05-23] MEDS: LEVETIRACETAM (250 MG) 250 MG TABLET PO SCH ×3 (08:31→21:30)
[2018-05-23] MEDS: LINAGLIPTIN 5 MG TABLET PO SCH (08:32)
[2018-05-23] MEDS: VALSARTAN 80 MG TABLET PO SCH (08:40)
[2018-05-23] MEDS: LOSARTAN POTASSIUM 50 MG TABLET PO SCH (08:43)
[2018-05-23] MEDS: FUROSEMIDE 40 MG TABLET PO SCH (08:43)
[2018-05-23] MEDS ORDERED: CARVEDILOL 6.25 MG TABLET PO SCH (09:00)
[2018-05-23] MEDS: INSULIN GLARGINE, 100 UNIT/ML CARTRIDGE SQ SCH (09:00)
[2018-05-23] MEDS ORDERED: Medication Not On Formulary EA (Icosapent Ethyl (Vascepa) 2 GM) PO SCH (09:00)
[2018-05-23] MEDS: Magnesium 1GM/D5W 100ML PREMIX 100 ML IV SCH ×2 (10:19→11:18)
[2018-05-23] MEDS ORDERED: DEXTROSE 50%-WATER 50 ML DISP.SYRIN IV PRN (15:30)
[2018-05-23 16:00] VITALS: BP 103/44
[2018-05-23] MEDS: BLOOD SUGAR DIAGNOSTIC 1 EACH STRIP IN SCH ×2 (17:26→22:45)
--- NOTE | 2018-05-23 19:05 | NUR ---
RN NOTES RECEIVED PATIENT REPORT FROM AM RN AND PATIENT WAS NOT IN THE ROOM. PATIENT WAS TAKEN TO CT ANGIOGRAM . WILL WAIT UNTILL PATIENT RETURNS TO THE UNIT.
--- NOTE | 2018-05-23 19:10 | NUR ---
MS RN CLOSING NOTES PATIENT LEFT THE UNIT VIA BED WITH OR NURSE MANSI FOR CT ANGIO W/ 3D. PT AWAKE ALERT X4, ON 2LITERS VIA NC, TOLERATING WELL, NO SOB. IV SITE R HAND 18G, FLUSHING WELL, SITE CDI. NO ACUTE CHANGES THROUGHOUT SHIFT. PT AMBULATORY WITH ASSIST. SAFETY MEASURES IN PLACE THROUGHOUT SHIFT. ALL MD ORDERS AND PATIENT NEEDS ATTENDED. ENDORSED TO PRODUCTION OPERATIONS ENGINEER NURSE FOR MICHAEL.
[2018-05-23] MEDS ORDERED: IOHEXOL-350 100 ML VIAL IV ONE (19:11)
[2018-05-23] MEDS ORDERED: METOPROLOL TARTRATE INJ 5 MG/5 ML AMPUL ONE ×2 (19:21→19:49)
[2018-05-23 20:00] VITALS: BP 112/62
[2018-05-23] MEDS ORDERED: METOPROLOL TARTRATE INJ 5 MG/5 ML AMPUL IVP ONE (20:00)
[2018-05-23] MEDS ORDERED: IV NS 0.9% 500 ML IV ONE (20:00)
[2018-05-23] MEDS ORDERED: NITROGLYCERIN 0.4 MG/TAB BOTTLE SL ONE (20:00)
[2018-05-23] MEDS: CARVEDILOL 6.25 MG TABLET PO SCH (21:00)
[2018-05-23] MEDS: INSULIN REGULAR, HUMAN 100 UNIT/ML 3 ML VIAL SQ PRN (22:51)
[2018-05-24 04:00] VITALS: BP 110/54
[2018-05-24 04:57] LABS: BASOPHILS % (AUTO) 0.4 % (0.0-2.0); HEMATOCRIT 34 % (33-45); HEMOGLOBIN 11.6 g/dL (11.5-14.8); MEAN CORPUSCULAR HGB CONC 34 g/dl (31.0-36.0); MEAN CORPUSCULAR VOLUME 90 fL (82-100); MONOCYTES # (AUTO) 0.3 /CMM (0.1-1.30); MONOCYTES % (AUTO) 8.9 % (2.0-12.0); NEUTROPHILS # (AUTO) 2.1 /CMM (1.8-8.9); NEUTROPHILS % (AUTO) 58.7 % (43.0-81.0); PLATELET COUNT (AUTO) 67 /CMM (150-450); RED BLOOD CELL COUNT(AUTO) 3.79 MIL/uL (4.0-5.2); WHITE BLOOD COUNT (AUTO) 3.6 K/uL (4.3-11.0)
[2018-05-24 05:11] LABS: CALCIUM, SERUM 8.7 mg/dL (8.5-10.1); CARBON DIOXIDE 26 mmol/L (21-32); CHLORIDE 104 mmol/L (98-107); GLUCOSE 207 mg/dL (74-106); MAGNESIUM 1.3 mg/dL (1.8-2.4); PHOSPHORUS 3.5 mg/dL (2.5-4.9); POTASSIUM 3.6 mmol/L (3.5-5.1); SODIUM SERUM 138 mmol/L (136-145); UREA NITROGEN, BLOOD 18 mg/dL (7-18)
[2018-05-24 05:14] LABS: CHOLESTEROL 132 mg/dL (<200); HDL CHOLESTEROL 51 mg/dL (40-60); LDL 68 mg/dL (0-99); TRIGLYCERIDES 86 mg/dL (30-150)
[2018-05-24 06:06] LABS: EOSINOPHILS % (MANUAL) 3 % (0-4)
[2018-05-24 06:07] LABS: LYMPHOCYTES % (MANUAL) 24 % (16-48); MONOCYTES % (MANUAL) 6 % (0-11.0)
[2018-05-24 06:08] LABS: NEUTROPHILS % (MANUAL) 67 (42-76)
--- NOTE | 2018-05-24 06:30 | NUR ---
RN NOTES PATIENT RETURN TO THE UNIT VIA BED WITH OR NURSE MANSI FOR CT ANGIO W/ 3D. PT AWAKE ALERT X4, ON 2LITERS VIA NC, TOLERATING WELL, NO SOB, NO PAIN AT THIS TIME. PATIENT IS INSTRUCTED TO DRINK AT LIST 4 CUPS OF WATER . IV SITE R HAND 18G, FLUSHING WELL, SITE CDI. NEW IV HAS BEEN INSERTED ON RIGHT FOREARM 18G.RN MANSI REPORTED THAT MD LEVIN ORDERED TO HOLD ALL THE BLOOD SUGAR MEDICATIONS BUT INSULIN FOR [address] PT AMBULATORY WITH ASSIST. SAFETY MEASURES IN PLACE . ALL MD ORDERS AND PATIENT NEEDS WILL BE ATTENDED. WILL CONTINUE TO MONITOR PATIENT CLOSELY.
--- NOTE | 2018-05-24 07:05 | NUR ---
RN INITIAL NOTES PT AWAKE ALERT X4, ON 2LITERS VIA NC, TOLERATING WELL, NO SOB, NO PAIN AT THIS TIME. IV SITE R HAND 18G, FLUSHING WELL, SITE CDI. RIGHT FOREARM 18G, SITE CDI. TO HOLD ALL THE BLOOD SUGAR MEDICATIONS BUT INSULIN FOR [address] PER MD ORDER. PT AMBULATORY WITH ASSIST. SAFETY MEASURES IN PLACE. ALL MD ORDERS AND PATIENT NEEDS WILL BE ATTENDED. WILL CONTINUE TO MONITOR PATIENT CLOSELY.
[2018-05-24 08:00] VITALS: BP 102/44
[2018-05-24] MEDS: BLOOD SUGAR DIAGNOSTIC 1 EACH STRIP IN SCH ×4 (08:20→22:46)
[2018-05-24] MEDS: INSULIN REGULAR, HUMAN 100 UNIT/ML 3 ML VIAL SQ PRN ×3 (08:29→22:47)
[2018-05-24] MEDS: VALSARTAN 80 MG TABLET PO SCH (09:00)
[2018-05-24] MEDS: LINAGLIPTIN 5 MG TABLET PO SCH (09:00)
[2018-05-24] MEDS: GLIMEPIRIDE 4 MG TABLET PO SCH ×2 (09:00→17:00)
[2018-05-24] MEDS: CARVEDILOL 6.25 MG TABLET PO SCH ×2 (09:00→21:58)
[2018-05-24] MEDS: FUROSEMIDE 40 MG TABLET PO SCH (09:00)
[2018-05-24] MEDS: METFORMIN 500 MG TABLET PO SCH ×2 (09:00→17:00)
[2018-05-24] MEDS: BUPROPION XL 150 MG TAB.ER.24 PO SCH (09:00)
[2018-05-24] MEDS: LEVETIRACETAM (250 MG) 250 MG TABLET PO SCH ×3 (09:00→22:07)
[2018-05-24] MEDS: LOSARTAN POTASSIUM 50 MG TABLET PO SCH (09:00)
[2018-05-24] MEDS: INSULIN GLARGINE, 100 UNIT/ML CARTRIDGE SQ SCH (09:58)
[2018-05-24] MEDS: ASPIRIN 81 MG TAB.CHEW PO SCH (10:03)
[2018-05-24] MEDS: POTASSIUM CHLORIDE 10 MEQ TABLET.SA PO SCH (10:04)
[2018-05-24] MEDS: GABAPENTIN 100 MG CAPSULE PO SCH ×2 (10:06→17:42)
[2018-05-24] MEDS: MONTELUKAST SODIUM (10MG) 10 MG TABLET PO SCH (10:18)
[2018-05-24] MEDS: Magnesium 1GM/D5W 100ML PREMIX 100 ML IV SCH ×4 (10:51→13:56)
[2018-05-24 16:00] VITALS: BP_SYST 135; BP_SYST 145; BP_DIAS 63
[2018-05-24] MEDS: IBUPROFEN 200 MG TABLET PO PRN (17:52)
--- NOTE | 2018-05-24 19:05 | NUR ---
MS RN CLOSING NOTES PT AWAKE ALERT X4, ON 1LITER VIA NC, TOLERATING WELL, NO SOB, NO PAIN AT THIS TIME. IV SITE R HAND 18G, FLUSHING WELL, SITE CDI. TO HOLD ALL THE BLOOD SUGAR MEDICATIONS BUT INSULIN FOR [address] PER MD ORDER. PT AMBULATORY WITH ASSIST. SAFETY MEASURES IN PLACE. ALL MD ORDERS AND PATIENT NEEDS ATTENDED. ENDORSED TO WIPING CLOTH CUTTER NURSE FOR MICHAEL.
[2018-05-24 20:00] VITALS: BP 119/55
[2018-05-25] VITALS: BP 116/50
[2018-05-25 04:00] VITALS: BP 116/50
--- NOTE | 2018-05-25 06:00 | NUR ---
pt slept well overnight kept npo, made aware, some meds refused, pt called daughter on the phone and translated conversation. pt for Lexiscan today, no significant changes overnight, kept attended, call light at reached.
[2018-05-25 06:37] LABS: BASOPHILS % (AUTO) 0.7 % (0.0-2.0); EOSINOPHILS % (AUTO) 3.3 % (0.0-6.0); HEMATOCRIT 35 % (33-45); LYMPHOCYTES % (AUTO) 29.7 % (20.0-44.0); MEAN CORPUSCULAR HGB CONC 34 g/dl (31.0-36.0); MEAN CORPUSCULAR VOLUME 89 fL (82-100); MONOCYTES # (AUTO) 0.4 /CMM (0.1-1.30); MONOCYTES % (AUTO) 11.8 % (2.0-12.0); NEUTROPHILS # (AUTO) 1.9 /CMM (1.8-8.9); NEUTROPHILS % (AUTO) 54.5 % (43.0-81.0); PLATELET COUNT (AUTO) 71 /CMM (150-450); RED BLOOD CELL COUNT(AUTO) 3.93 MIL/uL (4.0-5.2); WHITE BLOOD COUNT (AUTO) 3.5 K/uL (4.3-11.0)
[2018-05-25 06:58] LABS: CALCIUM, SERUM 8.9 mg/dL (8.5-10.1); CARBON DIOXIDE 26 mmol/L (21-32); CHLORIDE 105 mmol/L (98-107); CREATININE 0.9 mg/dL (0.6-1.3); GLUCOSE 186 mg/dL (74-106); MAGNESIUM 1.8 mg/dL (1.8-2.4); PHOSPHORUS 3.9 mg/dL (2.5-4.9); POTASSIUM 3.7 mmol/L (3.5-5.1); SODIUM SERUM 140 mmol/L (136-145); UREA NITROGEN, BLOOD 18 mg/dL (7-18)
--- NOTE | 2018-05-25 07:00 | NUR ---
MS RN INITIAL NOTES RECEIVED PT SITTING ON SIDE OF BED, A/OX 3 BAHAMIAN SPEAKING. PT NPO SINCE MIDNIGHT FOR LEXISCAN. NO C/O CHEST PAIN. ON 2L NC. IV SITES PATENT/FLUSHED. ON RA 96% O2. BED IN LOCKED/LOWEST POSITION. CALL LIGHT IN REACH. WILL CONT TO MONITOR.
[2018-05-25] MEDS: BLOOD SUGAR DIAGNOSTIC 1 EACH STRIP IN SCH ×2 (07:36→12:15)
[2018-05-25 07:49] LABS: EOSINOPHILS % (MANUAL) 3 % (0-4); LYMPHOCYTES % (MANUAL) 32 % (16-48); MONOCYTES % (MANUAL) 7 % (0-11.0); NEUTROPHILS % (MANUAL) 58 (42-76)
[2018-05-25 08:00] VITALS: BP 112/52
[2018-05-25] MEDS ORDERED: REGADENOSON 0.4 MG/5 ML DISP.SYRIN IVP ONE (08:00)
[2018-05-25] MEDS: CARVEDILOL 6.25 MG TABLET PO SCH (09:00)
[2018-05-25] MEDS: METFORMIN 500 MG TABLET PO SCH (09:00)
[2018-05-25] MEDS: BUPROPION XL 150 MG TAB.ER.24 PO SCH ×2 (09:00→10:21)
[2018-05-25] MEDS: GLIMEPIRIDE 4 MG TABLET PO SCH (09:00)
[2018-05-25] MEDS: LINAGLIPTIN 5 MG TABLET PO SCH (09:00)
--- NOTE | 2018-05-25 09:00 | NUR ---
MS RN NOTES PT REFUSED AM MED KEPPRA/WELLBUTRIN.
--- NOTE | 2018-05-25 09:00 | NUR ---
MS RN NOTES LEXISCAN IV MED GIVEN AT BS BY RADIOLOGY.
[2018-05-25] MEDS: MONTELUKAST SODIUM (10MG) 10 MG TABLET PO SCH (10:21)
[2018-05-25] MEDS: VALSARTAN 80 MG TABLET PO SCH (10:21)
[2018-05-25] MEDS: ASPIRIN 81 MG TAB.CHEW PO SCH (10:21)
[2018-05-25] MEDS: FUROSEMIDE 40 MG TABLET PO SCH (10:21)
[2018-05-25] MEDS: POTASSIUM CHLORIDE 10 MEQ TABLET.SA PO SCH (10:21)
[2018-05-25 10:22] VITALS: BP 112/52
[2018-05-25] MEDS: LEVETIRACETAM (250 MG) 250 MG TABLET PO SCH (10:22)
[2018-05-25] MEDS: LOSARTAN POTASSIUM 50 MG TABLET PO SCH (10:22)
[2018-05-25] MEDS: GABAPENTIN 100 MG CAPSULE PO SCH (10:22)
[2018-05-25] MEDS: INSULIN GLARGINE, 100 UNIT/ML CARTRIDGE SQ SCH (10:35)
[2018-05-25] MEDS: INSULIN REGULAR, HUMAN 100 UNIT/ML 3 ML VIAL SQ PRN (12:20)
[2018-05-25] MEDS: IBUPROFEN 200 MG TABLET PO PRN (16:34)
--- NOTE | 2018-05-25 16:39 | NUR ---
MS RN NOTES PT DISCHARGED; WALKED OUT WITH WOODS WARDEN; REFUSED WHEELCHAIR/ ID BAND REMOVED/ BELONGINGS IN HAND. INSTRUCTIONS GIVEN. IV REMOVED. ALL NEEDS ATTENDED TO
== END 2018-05-25 17:00 | disposition home or self-care (01) | DRG 202 ==
LOC: ER 01:48 → TELE1 03:24 → MEDSG1 10:27
PROVIDERS: ADMIT Hospitalist; ATTEND Hospitalist
DX: J45.990 Exercise induced bronchospasm (principal); Z68.41 Body mass index [BMI] 40.0-44.9, adult; E44.1 Mild protein-calorie malnutrition; E78.5 Hyperlipidemia, unspecified; E83.42 Hypomagnesemia; G40.909 Epilepsy, unspecified, not intractable, without status epilepticus; I50.9 Heart failure, unspecified; I11.0 Hypertensive heart disease with heart failure; E11.9 Type 2 diabetes mellitus without complications; E66.01 Morbid (severe) obesity due to excess calories; G47.33 Obstructive sleep apnea (adult) (pediatric); J45.909 Unspecified asthma, uncomplicated; Z79.82 Long term (current) use of aspirin; Z79.4 Long term (current) use of insulin; F41.9 Anxiety disorder, unspecified
CPT/HCPCS: 36415; 71045-TC; 75574; 80048-TC; 80061-TC; 82962-TC; 83735-TC; 83880; 84100-TC; 84484-TC; 85025-TC; 87081-TC; A9502; G0378; J1815; J2785; J3475; J3490; J7040; Q9967

== ENCOUNTER 2020-07-17 22:17 | Inpatient (IN) | payer MEDICARE, OTHER ==
[~2020-07-17] VITALS: Ht 167.6 cm; Wt 112.9 kg
[~2020-07-17 22:17] MED LIST changes: -ASPI-1152 PO; +ASPI-1420 PO; -BUPR-51 PO; +BUPR-54 PO; -GLIM4TAB2 PO; +GLIM4TAB37 PO; -IBUP-51 PO
--- NOTE | 2020-07-17 22:35 | NUR ---
PATIENT TO ER BED 3 C/O CONFUSION AND WEAKNESS SINCE THIS MORNING. PATIENT IS ALERT AND ORIENTED x3. DAUGHTER AT BEDSIDE. CONNECTED TO THE MONITOR.
[2020-07-17] MEDS ORDERED: IV NS 0.9% 500 ML BAG IV ONE (23:00)
[2020-07-17 23:11] LABS: BASOPHILS % (AUTO) 0.6 % (0.0-2.0); EOSINOPHILS % (AUTO) 1.8 % (0.0-6.0); HEMATOCRIT 37 % (33-45); HEMOGLOBIN 12.3 g/dL (11.5-14.8); LYMPHOCYTES # (AUTO) 1.3 /CMM (0.8-4.8); LYMPHOCYTES % (AUTO) 22.9 % (20.0-44.0); MEAN CORPUSCULAR HGB CONC 33 g/dl (31.0-36.0); MEAN CORPUSCULAR VOLUME 93 fL (82-100); MONOCYTES # (AUTO) 0.5 /CMM (0.1-1.30); MONOCYTES % (AUTO) 8.1 % (2.0-12.0); NEUTROPHILS # (AUTO) 3.8 /CMM (1.8-8.9); NEUTROPHILS % (AUTO) 66.6 % (43.0-81.0); PLATELET COUNT (AUTO) 93 /CMM (150-450); RED BLOOD CELL COUNT(AUTO) 3.95 MIL/uL (4.0-5.2); WHITE BLOOD COUNT (AUTO) 5.6 K/uL (4.3-11.0)
--- NOTE | 2020-07-17 23:28 | NUR ---
PATIENT RETURNED FROM CT
[2020-07-17 23:32] LABS: BILIRUBIN,URINE Negative (NEGATIVE); COLOR,URINE YELLOW (YELLOW); LEUKOCYTE ESTERASE ,URINE Negative (NEGATIVE); NITRITE, URINE Negative (NEGATIVE); PH,URINE 5.5 (5.0-8.0); PROTEIN,URINE Negative (NEGATIVE); UGLUCOSE 500 MG/DL mg/dL (NEGATIVE)
[2020-07-17 23:35] LABS: BACTERIA,URINE Rare /HPF (None Seen); SQUAMOUS EPITHELIAL CELL,UR Few /HPF (None Seen); WBC,URINE NONE SEEN /HPF (0-3)
[2020-07-17 23:35] LABS: ALANINE AMINOTRANSFERASE 44 U/L (12-78); ALBUMIN 3.3 g/dL (3.4-5.0); ALKALINE PHOSPHATASE 120 U/L (46-116); ASPARTATE AMINOTRANSFERASE 52 U/L (15-37); BILIRUBIN,DIRECT 0.4 mg/dL (0.0-0.2); BILIRUBIN,TOTAL 0.9 mg/dL (0.2-1.0); CALCIUM, SERUM 9.4 mg/dL (8.5-10.1); CARBON DIOXIDE 23 mmol/L (21-32); CHLORIDE 102 mmol/L (98-107); CREATININE 1.7 mg/dL (0.6-1.3); POTASSIUM 4.1 mmol/L (3.5-5.1); SODIUM SERUM 137 mmol/L (136-145); TOTAL PROTEIN, SERUM 7.7 g/dL (6.4-8.2); UREA NITROGEN, BLOOD 24 mg/dL (7-18)
[2020-07-17 23:36] LABS: ACETAMINOPHEN < 2 ug/ml (10-30); ALCOHOL, BLOOD < 3 mg/dL (0-0)
[2020-07-17 23:37] LABS: GLUCOSE 490 mg/dL (74-106)
[2020-07-17 23:42] LABS: SERUM AMMONIA 63 umol/L (11-32)
[2020-07-18] LABS: EOSINOPHILS % (MANUAL) 3 % (0-4); LYMPHOCYTES % (MANUAL) 31 % (16-48); MONOCYTES % (MANUAL) 10 % (0-11.0); NEUTROPHILS % (MANUAL) 56 (42-76)
--- NOTE | 2020-07-18 00:05 | NUR ---
CALL FROM LAB. RAPID COVID NEGATIVE.
--- NOTE | 2020-07-18 00:27 | NUR ---
TELE [phone]
--- NOTE | 2020-07-18 00:40 | NUR ---
REPORT GIVEN TO ANALY JEFFERS FOR MICHAEL.
[2020-07-18] MEDS ORDERED: DEXTROSE 50%-WATER 50 ML DISP.SYRIN IV PRN (01:00)
[2020-07-18] MEDS ORDERED: LACTULOSE 10 G/15 ML UDC (PYXIS) PO ONE (01:00)
[2020-07-18] MEDS ORDERED: IV 1/2NS 1000 ML 1,000 ML IV PRN (01:00)
[2020-07-18] MEDS ORDERED: LACTULOSE 10 G/15 ML UDC (PYXIS) PO PRN (01:00)
[2020-07-18] MEDS ORDERED: MAG HYDROX/AL HYDROX/SIMETH 30 ML UDC PO PRN (01:00)
[2020-07-18] MEDS ORDERED: ACETAMINOPHEN 325 MG TABLET PO PRN (01:00)
[2020-07-18] MEDS ORDERED: INSULIN REGULAR, HUMAN 100 UNIT/ML 3 ML VIAL SQ ONE (01:00)
[2020-07-18] MEDS ORDERED: ONDANSETRON HCL/PF 4 MG/2 ML VIAL IVP PRN (01:00)
--- NOTE | 2020-07-18 01:00 | NUR ---
MS RN NOTES PT ARRIVED TOT HE UNIT VIA WHEELCHAIR ACCOMPANIED BY NURSE AND DAUGHTER. PT ABLE TO WALK FROM WHEEL CHAIR TO BED WITH MINIMUM ASSISTANCE. PT ALERT ORIENTED X 3-4 ON ROOM AIR TOLERATING WELL. NO RESPIRATORY DISTRESS NOTED OR REPORTED NO PAIN OR DISCOMFORT NOTED OR REPORTED AT THIS TIME. PT ORIENTED TO ROOM AND UNIT. PT SKIN INTACT TO WOUNDS NOTED. PT DOES NOT WANT TO PUT ON HOSPITAL GOWN PREFERRED TO STAY IN HER OWN CLOTHES. PT ABDOMEN IS SOFT NON TENDER TO THE TOUCH NO DISTENTION NOTED. BOWEL SOUNDS AUSCULTATED AT ALL FOUR QUADRANTS. PT BLOOD SUGAR CHECKED AND INSULIN GIVEN PER MD ORDER. ALL DUE MEDS GIVEN AND TOLERATED WELL. PT DID NOT WANT IV FLUIDS STATED " I DRINK ENOUGH WATER I DONT NEED THAT" RISK AND BENEFITS EXPLAINED X3 REFUSED X3. ALL SAFETY PRECAUTIONS FOLLOWED. BED IN LOWEST POSITION BILATERAL WELFARE WORKER RAILS UP. CALL LIGHT WITHIN REACH WILL CONTINUE TO MONITOR
[2020-07-18 03:02] VITALS: BP 150/82
--- NOTE | 2020-07-18 03:30 | NUR ---
MS RN NOTES PT DOESN'T WANT DVT PUMPS PT IS AMBULATING AROUND THE ROOM. WILL CONTINUE TO MONITOR.
[2020-07-18 06:37] LABS: BASOPHILS % (AUTO) 0.6 % (0.0-2.0); EOSINOPHILS % (AUTO) 2.7 % (0.0-6.0); HEMATOCRIT 32 % (33-45); LYMPHOCYTES # (AUTO) 1.4 /CMM (0.8-4.8); LYMPHOCYTES % (AUTO) 32.4 % (20.0-44.0); MEAN CORPUSCULAR HGB CONC 34 g/dl (31.0-36.0); MEAN CORPUSCULAR VOLUME 92 fL (82-100); MONOCYTES # (AUTO) 0.4 /CMM (0.1-1.30); NEUTROPHILS # (AUTO) 2.4 /CMM (1.8-8.9); NEUTROPHILS % (AUTO) 54.3 % (43.0-81.0); PLATELET COUNT (AUTO) 72 /CMM (150-450); RED BLOOD CELL COUNT(AUTO) 3.49 MIL/uL (4.0-5.2); WHITE BLOOD COUNT (AUTO) 4.4 K/uL (4.3-11.0)
--- NOTE | 2020-07-18 06:43 | NUR ---
MS RN NOTES PT ALERT ORIENTED X 3-4 ON ROOM AIR TOLERATING WELL. NO RESPIRATORY DISTRESS NOTED OR REPORTED NO PAIN OR DISCOMFORT NOTED OR REPORTED AT THIS TIME. P PT DOES NOT WANT TO PUT ON HOSPITAL GOWN PREFERRED TO STAY IN HER OWN CLOTHES. PT BLOOD SUGAR CHECKED PER PROTOCOL INSULIN WAS REQUIRED HOWEVER PT REFUSED X 3 RISK AND BENEFITS EXPLAINED X 3 PER DAUGHTER " MY MOMS INSULIN SOMETIMES DROPS SHE KNOWS WHEN SHE SHOULDN'T TAKE INSULIN" ALL DUE MEDS GIVEN AND TOLERATED WELL. PT STILL DID NOT WANT IV FLUIDS STATED " I DRINK ENOUGH WATER I DONT NEED THAT" RISK AND BENEFITS EXPLAINED X3 REFUSED X3. ALL SAFETY PRECAUTIONS FOLLOWED. 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 CALL LIGHT WITHIN REACH WILL ENDORSE CARE TO DAY SHIFT NURSE.
[2020-07-18] MEDS: INSULIN REGULAR, HUMAN 100 UNIT/ML 3 ML VIAL SQ PRN ×4 (06:58→22:28)
[2020-07-18] MEDS: BLOOD SUGAR DIAGNOSTIC 1 EACH STRIP IN SCH ×4 (07:01→22:24)
[2020-07-18 07:08] LABS: CREATININE 1.3 mg/dL (0.6-1.3); MAGNESIUM 1.5 mg/dL (1.8-2.4); POTASSIUM 3.6 mmol/L (3.5-5.1)
--- NOTE | 2020-07-18 07:48 | NUR ---
MS RN OPENING NOTE PATIENT IN BED RESTING. PATIENT IS IN NO ACUTE DISTRESS. PATIENT IS ON ROOM AIR, TOLERATING WELL. PATIENT IS ABLE TO AMBULATE. SAFETY PRECAUTIONS ARE ON, BED IS LOCKED, IN THE LOWEST POSITION WITH SIDE RAILS UP. WILL CONTINUE TO MONITOR CLOSELY.
[2020-07-18 08:00] VITALS: BP 121/66
[2020-07-18] MEDS: HEPARIN SODIUM, PORCINE 5000 UNITS/1 ML VIAL SQ SCH ×2 (08:23→21:19)
[2020-07-18] MEDS: PANTOPRAZOLE 40 MG TABLET.DR PO SCH (08:23)
[2020-07-18 08:24] LABS: EOSINOPHILS % (MANUAL) 3 % (0-4); LYMPHOCYTES % (MANUAL) 27 % (16-48); MONOCYTES % (MANUAL) 13 % (0-11.0); NEUTROPHILS % (MANUAL) 57 (42-76)
--- NOTE | 2020-07-18 08:25 | NUR ---
MS RN NOTE PATIENTS PLATELETS ARE LOW 71 DECREASED FORM YESTERDAY FROM 93, WITHHELD HEPARIN INJECTION
[2020-07-18] MEDS ORDERED: ALBU18HF2 IH (09:44)
[2020-07-18] MEDS ORDERED: IBUP-1955 PO (09:44)
[2020-07-18] MEDS ORDERED: FURO-145 PO (09:44)
[2020-07-18] MEDS ORDERED: LORA10TA7 PO (09:44)
[2020-07-18] MEDS ORDERED: GLIM4TAB37 PO (09:44)
[2020-07-18] MEDS ORDERED: METF-881 PO (09:44)
[2020-07-18] MEDS ORDERED: NEBI10TA2 PO (09:44)
[2020-07-18] MEDS ORDERED: CALC500T52 PO (09:44)
[2020-07-18] MEDS ORDERED: LOSA1TAB39 PO (09:44)
[2020-07-18] MEDS ORDERED: CLON0.1T PO (09:44)
[2020-07-18] MEDS ORDERED: CHOL100062 PO (09:44)
[2020-07-18] MEDS ORDERED: INSU3INS3 SQ (09:44)
[2020-07-18] MEDS ORDERED: IBAN150T16 PO (09:44)
[2020-07-18] MEDS ORDERED: ICOS1CAP2 PO (09:44)
[2020-07-18] MEDS ORDERED: ZAFI10TA2 PO (09:44)
[2020-07-18] MEDS ORDERED: DULA0.75 SQ (09:44)
[2020-07-18] MEDS: Magnesium 1GM/D5W 100ML PREMIX 100 ML IV SCH ×2 (11:26→13:05)
[2020-07-18 15:55] VITALS: BP 114/53
--- NOTE | 2020-07-18 18:46 | NUR ---
MS RN CLOSING NOTE PATIENT IN BED RESTING. PATIENT IS IN NO ACUTE DISTRESS. PATIENT IS ON ROOM AIR, TOLERATING WELL. PATIENT IS ABLE TO AMBULATE. SAFETY PRECAUTIONS ARE ON, BED IS LOCKED, IN THE LOWEST POSITION WITH SIDE RAILS UP. ENDORSE PATIENT TO MANAGER OF PMO NURSE FOR MICHAEL.
--- NOTE | 2020-07-18 19:30 | NUR ---
RN OPENING NOTE PATIENT SITTING ON THE, DAUGHTER SANTIAGO AT BEDSIDE, A/O X 4. BULGARIAN SPEAKING ONLY, DOES NOT UNDERSTAND BELARUSIAN. PATIENT TOLERATING ROOM AIR, BREATHING EVEN AND UNLABORED. IV ACCESS INTACT AND PATENT. SAFETY MEASURES IN PLACE: BED IN LOCKED AND LOWEST POSITION, CALL LIGHT WITHIN REACH, SIDE RAILS UP. WILL MONITOR PATIENT CLOSELY.
[2020-07-18 20:00] VITALS: BP 107/69
[2020-07-18] MEDS: LORATADINE 10 MG TABLET PO SCH (21:17)
--- NOTE | 2020-07-18 21:30 | NUR ---
NOTIFIED BISHOP ENGRAVER FLATWARE, ENGINE TURNER HOSPITALIST, RE LOW PLT COUNT 71 AND HEPARIN ORDER. OK TO GIVE.
[2020-07-19] MEDS: INSULIN REGULAR, HUMAN 100 UNIT/ML 3 ML VIAL SQ PRN ×4 (06:24→22:09)
[2020-07-19] MEDS: BLOOD SUGAR DIAGNOSTIC 1 EACH STRIP IN SCH ×4 (06:30→22:13)
[2020-07-19 07:11] LABS: CREATININE 1.2 mg/dL (0.6-1.3); POTASSIUM 3.8 mmol/L (3.5-5.1)
--- NOTE | 2020-07-19 07:12 | NUR ---
RN CLOSING NOTE PATIENT LAYING ON THE BED, AWAKE, A/O X3. PATIENT TOLERATING ROOM AIR, BREATHING EVEN AND UNLABORED. IV ACCESS INTACT AND PATENT. FLUIDS RUNNING WELL. NO PAIN OR DISCOMFORT REPORTED AT THIS TIME. SAFETY MEASURES MAINTAINED. ALL NEEDS MET AND ATTENDED. ENDORSED TO DAY SHIFT NURSE FOR MICHAEL
--- NOTE | 2020-07-19 07:17 | NUR ---
MS RN OPENING NOTE PATIENT IN BED RESTING. PATIENT IS A/O X 3. PATIENT IS BREATHING EVENLY AND NONLABORED. PATIENT IS IN NO ACUTE DISTRESS. PATIENT IS ON ROOM AIR, TOLERATING WELL. PATIENT HAS IV ACCESS ON LAC # 18 GAUGE PATENT AND INTACT. PATIENT IS ABLE TO AMBULATE. SAFETY PRECAUTIONS ARE ON, BED IS LOCKED, IN THE LOWEST POSITION WITH SIDE RAILS UP. CALL LIGHT WITHIN REACH. WILL CONTINUE TO MONITOR
[2020-07-19 08:00] VITALS: BP 130/66
[2020-07-19] MEDS: PANTOPRAZOLE 40 MG TABLET.DR PO SCH (08:07)
[2020-07-19] MEDS: LORATADINE 10 MG TABLET PO SCH (08:07)
[2020-07-19] MEDS: HEPARIN SODIUM, PORCINE 5000 UNITS/1 ML VIAL SQ SCH ×2 (08:09→22:09)
[2020-07-19] MEDS ORDERED: LORATADINE 10 MG TABLET PO SCH (09:00)
[2020-07-19] MEDS: LACTULOSE 10 G/15 ML UDC (PYXIS) PO SCH (15:49)
[2020-07-19 16:00] VITALS: BP 102/47
--- NOTE | 2020-07-19 18:36 | NUR ---
MS RN CLOSING NOTE PATIENT IS IN BED RESTING, DAUGHTER IS AT BEDSIDE. PATIENT IS A/O X 3. PATIENT IS BREATHING EVENLY AND NONLABORED. PATIENT IS IN NO ACUTE DISTRESS. PATIENT IS ON ROOM AIR, TOLERATING WELL. PATIENT HAS IV ACCESS ON LAC # 18 GAUGE PATENT AND INTACT. PATIENT IS ABLE TO AMBULATE. ALL MEDICATIONS WERE GIVEN ORDERED. SAFETY PRECAUTIONS ARE IN PLACE, BED IS LOW, LOCKED, WITH SIDE RAILS UP. CALL LIGHT WITHIN REACH. WILL ENDORSE TO ONCOMING SHIFT.
[2020-07-19 20:00] VITALS: BP 125/58
--- NOTE | 2020-07-19 20:05 | NUR ---
MS/TELE/RN RECEIVED PATIENT SITTING AT EDGE OF BED AWAKE, ALERT, ORIENTED, COMFORTABLE, NO C/O PAIN, NO DISTRESS NOTED, CALL LIGHT IN REACH, WILL MONITOR.
--- NOTE | 2020-07-20 03:24 | NUR ---
MS/TELE/RN PATIENT IS SLEEPING AT THIS TIME, APPEAR COMFORTABLE, NO SIGNS OF DISTRESS NOTED, CALL LIGHT IN REACH, WILL CONTINUE TO MONITOR.
[2020-07-20 06:13] LABS: BASOPHILS % (AUTO) 0.7 % (0.0-2.0); CALCIUM, SERUM 9.3 mg/dL (8.5-10.1); CREATININE 1.2 mg/dL (0.6-1.3); EOSINOPHILS % (AUTO) 4.7 % (0.0-6.0); HEMATOCRIT 32 % (33-45); HEMOGLOBIN 11.1 g/dL (11.5-14.8); LYMPHOCYTES # (AUTO) 1.4 /CMM (0.8-4.8); LYMPHOCYTES % (AUTO) 36.1 % (20.0-44.0); MAGNESIUM 1.7 mg/dL (1.8-2.4); MEAN CORPUSCULAR HGB CONC 34 g/dl (31.0-36.0); MEAN CORPUSCULAR VOLUME 92 fL (82-100); MONOCYTES # (AUTO) 0.3 /CMM (0.1-1.30); MONOCYTES % (AUTO) 8.6 % (2.0-12.0); NEUTROPHILS # (AUTO) 1.9 /CMM (1.8-8.9); NEUTROPHILS % (AUTO) 49.9 % (43.0-81.0); PHOSPHORUS 4.2 mg/dL (2.5-4.9); POTASSIUM 3.9 mmol/L (3.5-5.1); RED BLOOD CELL COUNT(AUTO) 3.53 MIL/uL (4.0-5.2); WHITE BLOOD COUNT (AUTO) 3.9 K/uL (4.3-11.0)
[2020-07-20 06:39] LABS: PLATELET COUNT (AUTO) 68 /CMM (150-450)
[2020-07-20] MEDS: INSULIN REGULAR, HUMAN 100 UNIT/ML 3 ML VIAL SQ PRN ×3 (06:56→17:26)
[2020-07-20] MEDS: BLOOD SUGAR DIAGNOSTIC 1 EACH STRIP IN SCH ×3 (06:58→17:23)
--- NOTE | 2020-07-20 07:08 | NUR ---
MS/TELE/RN PATIENT IS IN ROOM SITTING AT EDGE OF BED, AWAKE, ALERT AND ORIENTED, NO C/O PAIN, NO DISTRESS NOTED, CALL LIGHT IN REACH, ALL NEEDS ATTENDED AT THIS TIME WILL CONTINUE TO MONITOR.
[2020-07-20 08:00] VITALS: BP 107/63
[2020-07-20] MEDS ORDERED: Magnesium 1GM/D5W 100ML PREMIX 100 ML IV SCH (09:00)
[2020-07-20] MEDS: LACTULOSE 10 G/15 ML UDC (PYXIS) PO SCH ×3 (09:01→17:23)
[2020-07-20] MEDS: LORATADINE 10 MG TABLET PO SCH (09:01)
[2020-07-20] MEDS: PANTOPRAZOLE 40 MG TABLET.DR PO SCH (09:02)
[2020-07-20] MEDS: HEPARIN SODIUM, PORCINE 5000 UNITS/1 ML VIAL SQ SCH (09:04)
[2020-07-20 09:28] LABS: EOSINOPHILS % (MANUAL) 5 % (0-4); LYMPHOCYTES % (MANUAL) 30 % (16-48); MONOCYTES % (MANUAL) 7 % (0-11.0); NEUTROPHILS % (MANUAL) 58 (42-76)
[2020-07-20] MEDS ORDERED: IBUPROFEN 600 MG TABLET PO PRN (13:30)
[2020-07-20] MEDS ORDERED: CLONIDINE HCL 0.1 MG TABLET PO PRN (13:30)
[2020-07-20] MEDS ORDERED: Medication Not On Formulary EA (Dulaglutide (Trulicity) 0.75 MG) SQ SCH (13:30)
[2020-07-20] MEDS ORDERED: ALBUTEROL FS 2.5 MG/3 ML VIAL.NEB IH PRN (14:00)
[2020-07-20 16:00] VITALS: BP 121/54
[2020-07-20] MEDS ORDERED: GLIMEPIRIDE 4 MG TABLET PO SCH (17:00)
[2020-07-20] MEDS ORDERED: CALCIUM CARBONATE (1250) 500 MG TABLET PO SCH (17:00)
--- NOTE | 2020-07-20 17:12 | NUR ---
dtr. calling in and c/o inability to talk to pt's md.texted dr. black to call pt's dtr.
--- NOTE | 2020-07-20 18:30 | NUR ---
PT'S DTR. HERE AND REQUESTING TO SIGN PT. OUT AMA.SIGNED RELEASE PAPER.HEP LOCK REMOVED.GIVEN ALL LAB REPORTS AND H AND P.WILL NOT WAIT FOR DC PAPERWORK.TAKEN TO LOBBY VIA W/C.INSTRUCTED TO CALL MD WITH STATUS OF LABS. DTR. AWARE AMMOMIA LEVEL VERY ELEVATED.
[2020-07-20] MEDS ORDERED: METOPROLOL TARTRATE 50 MG TABLET PO SCH (21:00)
[2020-07-21] MEDS ORDERED: Medication Not On Formulary EA (Losartan/Hydrochlorothiazide (Losartan-Hctz 100-25 Mg Ta PO SCH (09:00)
[2020-07-21] MEDS ORDERED: CHOLECALCIFEROL 1,000 UNIT TABLET (VIT D3) PO SCH (09:00)
[2020-07-21] MEDS ORDERED: LORATADINE 10 MG TABLET PO SCH (09:00)
[2020-07-21] MEDS ORDERED: FUROSEMIDE 20 MG TABLET PO SCH (09:00)
[2020-07-21] MEDS ORDERED: ICOSAPENT ETHYL 2 GM PO SCH (09:00)
[2020-08-19] MEDS ORDERED: Medication Not On Formulary EA (Ibandronate Sodium (Boniva) 150 MG) PO SCH (09:00)
== END 2020-07-20 18:42 | disposition left against medical advice (07) | DRG 441 ==
LOC: ER 22:20 → MERGE 07-18 00:27 → MED 07-18 00:27 → TELE 07-18 20:24 → MED 07-19 00:53
PROVIDERS: ADMIT Student in an Organized Health Care Education/Training Program; ATTEND Student in an Organized Health Care Education/Training Program
DX: K72.00 Acute and subacute hepatic failure without coma (principal); N17.0 Acute kidney failure with tubular necrosis; G93.41 Metabolic encephalopathy; E72.20 Disorder of urea cycle metabolism, unspecified; E44.1 Mild protein-calorie malnutrition; E11.9 Type 2 diabetes mellitus without complications; I10 Essential (primary) hypertension; D69.59 Other secondary thrombocytopenia; F32.9 Major depressive disorder, single episode, unspecified; Z20.822 Contact with and (suspected) exposure to COVID-19; E11.65 Type 2 diabetes mellitus with hyperglycemia; D64.9 Anemia, unspecified; D69.6 Thrombocytopenia, unspecified; E83.42 Hypomagnesemia; G40.909 Epilepsy, unspecified, not intractable, without status epilepticus; F41.9 Anxiety disorder, unspecified; D32.9 Benign neoplasm of meninges, unspecified
CPT/HCPCS: 36415; 70450-TC; 71045-TC; 80048-TC; 80061-TC; 80076-TC; 81001; 82140-TC; 83735-TC; 84100-TC; 84439-TC; 84443-TC; 84484-TC; 85025-TC; 85730-TC; 87081-TC; 87086-TC; 97112-TC; 97116-TC; 97530-TC; C9803; G0378; G0480; J1644; J1815; J3475; J3490; J7040; J7050

== ENCOUNTER 2021-02-04 01:02 | Inpatient (IN) | payer MEDICARE, OTHER ==
[~2021-02-04] VITALS: Ht 165.1 cm; Wt 120.7 kg
[~2021-02-04 01:02] MED LIST changes: +ALBU18HF2 IH; -ASPI-1420 PO; -BUPR-54 PO; +CALC500T52 PO; +CHOL100062 PO; +CLON0.1T PO; -CLON1PAT13 TD; +DULA0.75 SQ; +FURO-145 PO; -FURO40TA5 PO; -GABA-532 PO; +IBAN150T16 PO; +IBUP-1955 PO; -ICOS1CAP PO; +ICOS1CAP2 PO; +INSU3INS3 SQ; -INSU3INS6 SQ; -LEVE500T20 PO; -LINA5TAB PO; +LORA10TA7 PO; +LOSA1TAB39 PO; -LOSA50TA3 PO; -METF-442 PO; +METF-881 PO; -MONT10TA22 PO; +NEBI10TA2 PO; -POTA8TAB3 PO; -VALS80TA2 PO; +ZAFI10TA2 PO
--- NOTE | 2021-02-04 01:43 | NUR ---
PT AAOX4. 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 -N/V RADIATING TO R SHOULDER. PLACED IN BED 4 ON MONITOR AND PULSE OX. ER EMT AT BEDSIDE FOR EKG. AWAITING ER MD FOR EVAL AND ORDERS.
--- NOTE | 2021-02-04 01:48 | NUR ---
CALL [phone] (SANTIAGO) DAUGHTER IN LAW TO UDPATE/ARMAMENT AIRCRAFT MECHANIC
[2021-02-04 02:51] LABS: BASOPHILS % (AUTO) 0.6 % (0.0-2.0); EOSINOPHILS % (AUTO) 1.4 % (0.0-6.0); HEMATOCRIT 33 % (33-45); HEMOGLOBIN 11.5 g/dL (11.5-14.8); LYMPHOCYTES # (AUTO) 0.7 K/uL (0.8-4.8); LYMPHOCYTES % (AUTO) 15.9 % (20.0-44.0); MEAN CORPUSCULAR HGB CONC 35 g/dl (31.0-36.0); MEAN CORPUSCULAR VOLUME 92 fL (82-100); MONOCYTES # (AUTO) 0.5 K/uL (0.1-1.30); MONOCYTES % (AUTO) 11.7 % (2.0-12.0); NEUTROPHILS # (AUTO) 3.2 K/uL (1.8-8.9); NEUTROPHILS % (AUTO) 70.4 % (43.0-81.0); PLATELET COUNT (AUTO) 69 K/uL (150-450); WHITE BLOOD COUNT (AUTO) 4.5 K/uL (4.3-11.0)
[2021-02-04] MEDS ORDERED: ONDANSETRON HCL/PF 4 MG/2 ML VIAL ONE (02:55)
[2021-02-04] MEDS ORDERED: MORPHINE SULFATE INJ 4 MG/ML DISP.SYRIN ONE ×2 (02:56→06:44)
[2021-02-04] MEDS ORDERED: ONDANSETRON HCL/PF 4 MG/2 ML VIAL IV ONE (03:00)
[2021-02-04] MEDS ORDERED: MORPHINE SULFATE INJ 2 MG/ML DISP.SYRIN IV ONE ×2 (03:00→06:30)
[2021-02-04 03:09] LABS: ALANINE AMINOTRANSFERASE 40 U/L (12-78); ALBUMIN 3.2 g/dL (3.4-5.0); ALKALINE PHOSPHATASE 86 U/L (46-116); ASPARTATE AMINOTRANSFERASE 46 U/L (15-37); BILIRUBIN,DIRECT 0.3 mg/dL (0.0-0.2); CALCIUM, SERUM 9.1 mg/dL (8.5-10.1); CARBON DIOXIDE 28 mmol/L (21-32); CHLORIDE 102 mmol/L (98-107); CREATININE 1.3 mg/dL (0.6-1.3); GLUCOSE 182 mg/dL (74-106); POTASSIUM 3.8 mmol/L (3.5-5.1); SODIUM SERUM 138 mmol/L (136-145); TOTAL PROTEIN, SERUM 7.3 g/dL (6.4-8.2); UREA NITROGEN, BLOOD 24 mg/dL (7-18)
[2021-02-04 04:20] LABS: LYMPHOCYTES % (MANUAL) 14 % (16-48); MONOCYTES % (MANUAL) 11 % (0-11.0); NEUTROPHILS % (MANUAL) 75 (42-76)
[2021-02-04] MEDS ORDERED: IV NS 0.9% 500 ML BAG IV ONE (05:00)
[2021-02-04] MEDS ORDERED: IV NS 0.9% 250 ML IV ONE (05:08)
[2021-02-04] MEDS ORDERED: IOHEXOL-300 100 ML VIAL IV ONE (05:08)
--- NOTE | 2021-02-04 05:19 | NUR ---
URINE COLLECTED AND SENT TO LAB
--- NOTE | 2021-02-04 05:30 | NUR ---
PT TAKEN TO CT
--- NOTE | 2021-02-04 06:41 | NUR ---
Patient does not wish to proceed with medical care recommended by Dr. Barboza. Patient given information related to possible complications, up to and including , which could occur as a result of leaving the hospital at this time. Patient verbalizes understanding of risks involved due to leaving against medical advice. Patient has signed AMA form.
[2021-02-04] MEDS ORDERED: MORPHINE SULFATE INJ 2 MG/ML DISP.SYRIN ONE (06:44)
--- NOTE | 2021-02-04 08:51 | NUR ---
PER FAMILY PT WILL PROCEED WITH THE ADMISSION.
--- NOTE | 2021-02-04 08:57 | NUR ---
[facility] CALLED MANAGER DRUG SAFETY PAGED.
[2021-02-04] MEDS ORDERED: INSU10VI3 SQ (09:06)
[2021-02-04] MEDS ORDERED: LOSA100T31 PO (09:06)
[2021-02-04] MEDS ORDERED: POTA10TA10 PO (09:07)
--- NOTE | 2021-02-04 10:57 | NUR ---
GOT BED 308-1
--- NOTE | 2021-02-04 11:00 | NUR ---
REPORT GIVEN TO ZEYAD LAST FOR MICHAEL.
--- NOTE | 2021-02-04 11:10 | NUR ---
DEWAXER NOTE RECEIVED PATIENT VIA GURNEY FROM ER. PATIENT IS A/O X4 ETHIOPIAN SPEAKING, TRANSLATION PROVIDED. PATIENT EVENLY AND NONLABORED ON ROOM AIR. NO SIGNS OF DISTRESS NOTED. VITALS BP 125/58, HR 68, RR18, TEMP 97.7, O2 SAT 95 % ON ROOM AIR. PATIENT COMPLAINS OF MILD ABDOMINAL PAIN, ABDOMEN SOFT, TENDER. PATIENT NOTED WITH LOWER EXTREMITY EDEMA +2. SKIN C/D/I. PATIENT HAS IV ACCESS TO RAC # 20 GAUGE PATENT AND INTACT. MD NOTIFIED PATIENT ADMITTED TO FLOOR. PATIENT'S BELONGINGS ACCOUNTED FOR. PATIENT NPO STATUS PER MD. PATIENT ORIENTED TO THE ROOM AND HOW TO USE THE CALL LIGHT. SAFETY MEASURES IN PLACE, BED LOW LOCKED AND CALL LIGHT WITHIN REACH WILL CONTINUE TO MONITOR.
[2021-02-04] MEDS ORDERED: ZOLPIDEM TARTRATE 5 MG TABLET PO PRN (13:00)
[2021-02-04] MEDS ORDERED: MAGNESIUM HYDROXIDE 30 ML UDC PO PRN (13:00)
[2021-02-04] MEDS ORDERED: Z GUARD REMEDY 2 OZ OINT TP PRN (13:00)
[2021-02-04] MEDS ORDERED: MAG HYDROX/AL HYDROX/SIMETH 30 ML UDC PO PRN (13:00)
[2021-02-04] MEDS ORDERED: HYDROCODONE/APAP 5/325MG TABLET PO PRN (13:00)
[2021-02-04] MEDS ORDERED: IV D5/0.45 NACL 1,000 ML IV PRN (13:00)
[2021-02-04] MEDS ORDERED: ACETAMINOPHEN 325 MG TABLET PO PRN (13:00)
[2021-02-04] MEDS ORDERED: ONDANSETRON HCL/PF 4 MG/2 ML VIAL IVP PRN (13:00)
[2021-02-04] MEDS ORDERED: MORPHINE SULFATE INJ 2 MG/ML DISP.SYRIN IV PRN (13:00)
--- NOTE | 2021-02-04 14:29 | NUR ---
RN NOTE PATIENT COMPLAINED OF PAIN AT IV SITE WITH REDNESS. MD GAVE NEW ORDER FOR MILDINE. INSERTION. CHARGE AWARE. GROCERY TEAM MEMBER AWARE
[2021-02-04] MEDS ORDERED: CLONIDINE HCL 0.1 MG TABLET PO PRN (17:30)
--- NOTE | 2021-02-04 18:20 | NUR ---
MS RN CLOSING NOTE PATIENT IS RESTING IN BED. PATIENT IS BREATHING EVENLY AND NONLABORED ON ROOM AIR. NO SIGNS OF DISTRESS NOTED. PATIENT DENIES PAIN OR DISCOMFORT AT THIS TIME. PATIENT HAS IV ACCESS TO RAC # 20 GAUGE PATENT AND INTACT RUNNING D5 1/2 NS @ 75 ML/HR. SAFETY MEASURES IN PLACE, BED LOW LOCKED AND CALL LIGHT WITHIN REACH WILL ENDORSE TO ONCOMING SHIFT
[2021-02-04] MEDS ORDERED: ALBUTEROL FS 2.5 MG/0.5 ML VIAL.NEB NEB PRN (19:00)
--- NOTE | 2021-02-04 19:19 | NUR ---
MS RN OPENING NOTE RECEIVED PATIENT IS RESTING IN BED. PATIENT IS BREATHING EVENLY AND NONLABORED ON ROOM AIR. NO SIGNS OF DISTRESS NOTED. PATIENT DENIES PAIN OR DISCOMFORT AT THIS TIME. PATIENT HAS IV ACCESS TO RAC # 20 GAUGE PATENT AND INTACT RUNNING D5 1/2 NS @ 75 ML/HR. SAFETY MEASURES IN PLACE, BED LOW LOCKED AND CALL LIGHT WITHIN REACH WILL CONTINUE TO MONITOR
[2021-02-04 20:00] VITALS: BP 120/57
[2021-02-05 06:48] LABS: ALBUMIN 2.8 g/dL (3.4-5.0); BILIRUBIN,DIRECT 0.5 mg/dL (0.0-0.2); BILIRUBIN,TOTAL 1.3 mg/dL (0.2-1.0); CALCIUM, SERUM 8.4 mg/dL (8.5-10.1); CREATININE 1.2 mg/dL (0.6-1.3); MAGNESIUM 1.6 mg/dL (1.8-2.4); PHOSPHORUS 4.1 mg/dL (2.5-4.9); POTASSIUM 3.8 mmol/L (3.5-5.1); TOTAL PROTEIN, SERUM 6.5 g/dL (6.4-8.2)
[2021-02-05 06:55] LABS: BASOPHILS % (AUTO) 0.5 % (0.0-2.0); EOSINOPHILS % (AUTO) 2.3 % (0.0-6.0); HEMATOCRIT 33 % (33-45); HEMOGLOBIN 11.3 g/dL (11.5-14.8); LYMPHOCYTES # (AUTO) 1.1 K/uL (0.8-4.8); LYMPHOCYTES % (AUTO) 24.2 % (20.0-44.0); MEAN CORPUSCULAR HGB CONC 34 g/dl (31.0-36.0); MEAN CORPUSCULAR VOLUME 93 fL (82-100); MONOCYTES # (AUTO) 0.5 K/uL (0.1-1.30); MONOCYTES % (AUTO) 11.9 % (2.0-12.0); NEUTROPHILS # (AUTO) 2.7 K/uL (1.8-8.9); NEUTROPHILS % (AUTO) 61.1 % (43.0-81.0); PLATELET COUNT (AUTO) 68 K/uL (150-450); RED BLOOD CELL COUNT(AUTO) 3.57 MIL/uL (4.0-5.2); WHITE BLOOD COUNT (AUTO) 4.4 K/uL (4.3-11.0)
[2021-02-05 08:31] VITALS: BP 118/44
--- NOTE | 2021-02-05 08:50 | NUR ---
MS RN OPENING NOTES PATIENT RECEIVED IN BED, ASLEEP, AWAKEN EASILY. PATIENT A/O X4, ABLE TO MAKE NEED KNOWN. PATIENT ON ROOM AIR; BREATHING EVEN AND UNLABORED, NO SOB NOTED AT THIS TIME. NO COMPLAINS OF PAIN. IV ACCESS AT SARAHI PRESENT AND INTACT. SAFETY PRECAUTIONS IN PLACE; BED IN LOW POSITION AND LOCKED, RAILS UP X2, CALL LIGHT WITHIN REACH. WILL CONTINUE TO MONITOR PATIENT.
[2021-02-05] MEDS ORDERED: LORATADINE 10 MG TABLET PO SCH (09:00)
[2021-02-05] MEDS ORDERED: PANTOPRAZOLE 40 MG VIAL IV SCH (09:00)
[2021-02-05] MEDS ORDERED: LOSARTAN POTASSIUM 50 MG TABLET PO SCH (09:00)
[2021-02-05] MEDS ORDERED: CHOLECALCIFEROL 1,000 UNIT TABLET (VIT D3) PO SCH (09:00)
[2021-02-05] MEDS ORDERED: METOPROLOL TARTRATE 50 MG TABLET PO SCH (09:00)
[2021-02-05] MEDS ORDERED: CALCIUM CARBONATE (1250) 500 MG TABLET PO SCH (09:00)
[2021-02-05] MEDS: Magnesium 1GM/D5W 100ML PREMIX 100 ML IV SCH ×2 (11:23→12:28)
--- NOTE | 2021-02-05 12:15 | NUR ---
NM: PATRICKA SCAN WAS COMPLETED: TECH:RB
[2021-02-05 15:58] VITALS: BP 138/68
--- NOTE | 2021-02-05 18:20 | NUR ---
MS CHEESE MAKER NOTES PATIENT DISCHARGED HOME IN MEDICALLY STABLE CONDITION. PATIENT A/O X4 ABLE TO MAKE NEEDS KNOWN. ALL DISCHARGE DOCUMENTS PROVIDED, TEACHING REGARDING PHYSICIAN INSTRUCTION AND FOLLOW UP APPOINTMENT PROVIDED; PATIENT VERBALIZED UNDERSTANDING. BELONGINGS ACCOUNTED FOR AND FORM SIGNED WELL. MIDLINE REMOVED. ID BAND REMOVED. PATIENT PICKED UP BT HER DAUGHTER IN LAW. LEFT THE UNIT VIA WHEELCHAIR ACCOMPANIED BY MONORAIL HOOKER. LEFT THE HOSPITAL VIA PRIVATE CAR.
== END 2021-02-05 18:20 | disposition home or self-care (01) | DRG 445 ==
LOC: ER 01:02 → TELE 11:08 → MED 11:47
PROVIDERS: ADMIT Student in an Organized Health Care Education/Training Program; ATTEND Student in an Organized Health Care Education/Training Program
PROC: 05H533Z Insertion of Infusion Device into Right Subclavian Vein, Percutaneous Approach (ICD-10-PCS; principal; 2021-02-04)
PROC: B546ZZA Ultrasonography of Right Subclavian Vein, Guidance (ICD-10-PCS; 2021-02-04)
DX: K80.12 Calculus of gallbladder with acute and chronic cholecystitis without obstruction (principal); E44.1 Mild protein-calorie malnutrition; Z68.41 Body mass index [BMI] 40.0-44.9, adult; R17 Unspecified jaundice; I11.0 Hypertensive heart disease with heart failure; I50.9 Heart failure, unspecified; D69.6 Thrombocytopenia, unspecified; E11.9 Type 2 diabetes mellitus without complications; E78.5 Hyperlipidemia, unspecified; J45.909 Unspecified asthma, uncomplicated; M19.90 Unspecified osteoarthritis, unspecified site; N28.1 Cyst of kidney, acquired; Z79.84 Long term (current) use of oral hypoglycemic drugs; R74.01 Elevation of levels of liver transaminase levels; E88.09 Other disorders of plasma-protein metabolism, not elsewhere classified; E66.01 Morbid (severe) obesity due to excess calories; Z20.822 Contact with and (suspected) exposure to COVID-19
CPT/HCPCS: 36415; 71045-TC; 76705-TC; 78226; 80048-TC; 80076-TC; 82962-TC; 83735-TC; 84100-TC; 84484-TC; 85025-TC; 87081-TC; A9537; C9803; G0378; J2270; J2405; J3475; J3490; J7040; J7050; Q9967

== ENCOUNTER 2021-08-19 05:41 | Inpatient (IN) | payer MEDICARE, OTHER ==
[~2021-08-19] VITALS: Ht 160 cm; Wt 112.2 kg
[~2021-08-19 05:41] MED LIST changes: -DULA0.75 SQ; -IBAN150T16 PO; -ICOS1CAP2 PO; +INSU10VI3 SQ; -INSU3INS3 SQ; +LOSA100T31 PO; -LOSA1TAB39 PO; -METF-881 PO; +POTA10TA10 PO; -ZAFI10TA2 PO
--- NOTE | 2021-08-19 06:25 | NUR ---
BIBS C/O GENERALIZED WEAKNESS AND "NOT FEELING WELL" SINCE YESTERDAY. PT AWAKE AND ALERT X4 AMBULATORY WITH WALKE AT BASELINE, BREATHING EVEN AND UNLABORED. DENIES ANY FLU LIKE SYMPTOMS OR RECENT SICK CONTACTS -COVID VACCINE. PLACED ON MONITOR AND V/S WNL.
--- NOTE | 2021-08-19 06:32 | NUR ---
COVID SWAB DONE AND SENT TO LAB.
--- NOTE | 2021-08-19 06:55 | NUR ---
IV CANNULA G20 INSERTED ON LEFT FA. TRIED WITHDRAWING BLOOD SAMPLES BUT IV ACCESS IS DELICATE.
--- NOTE | 2021-08-19 07:01 | NUR ---
SEEN BY DR HICKS AT BEDSIDE.
[2021-08-19 07:35] LABS: BASOPHILS % (AUTO) 0.8 % (0.0-2.0); HEMATOCRIT 35 % (33-45); HEMOGLOBIN 11.7 g/dL (11.5-14.8); LYMPHOCYTES # (AUTO) 1.2 K/uL (0.8-4.8); LYMPHOCYTES % (AUTO) 28.9 % (20.0-44.0); MEAN CORPUSCULAR HGB CONC 34 g/dl (31.0-36.0); MEAN CORPUSCULAR VOLUME 91 fL (82-100); MONOCYTES # (AUTO) 0.4 K/uL (0.1-1.30); MONOCYTES % (AUTO) 9.5 % (2.0-12.0); NEUTROPHILS # (AUTO) 2.4 K/uL (1.8-8.9); NEUTROPHILS % (AUTO) 55.8 % (43.0-81.0); PLATELET COUNT (AUTO) 69 K/uL (150-450); RED BLOOD CELL COUNT(AUTO) 3.79 MIL/uL (4.0-5.2); WHITE BLOOD COUNT (AUTO) 4.2 K/uL (4.3-11.0)
--- NOTE | 2021-08-19 07:44 | NUR ---
AWAKE IN BED, VERBALLY RESPONSIVE, NOT IN ACUTE DISTRESS. VS TAKEN
[2021-08-19 08:23] LABS: ALANINE AMINOTRANSFERASE 33 U/L (12-78); ALKALINE PHOSPHATASE 85 U/L (46-116); ASPARTATE AMINOTRANSFERASE 41 U/L (15-37); BILIRUBIN,DIRECT 0.3 mg/dL (0.0-0.2); BILIRUBIN,TOTAL 0.7 mg/dL (0.2-1.0); CALCIUM, SERUM 9.4 mg/dL (8.5-10.1); CARBON DIOXIDE 22 mmol/L (21-32); CHLORIDE 108 mmol/L (98-107); CREATININE 1.4 mg/dL (0.6-1.3); GLUCOSE 139 mg/dL (74-106); POTASSIUM 4.2 mmol/L (3.5-5.1); SODIUM SERUM 141 mmol/L (136-145); UREA NITROGEN, BLOOD 27 mg/dL (7-18)
[2021-08-19] MEDS ORDERED: METF-442 PO (08:36)
[2021-08-19] MEDS ORDERED: OMEP40CA21 PO (08:36)
[2021-08-19] MEDS ORDERED: ALEN70TA80 PO (08:36)
[2021-08-19] MEDS ORDERED: POTA8TAB3 PO (08:36)
[2021-08-19] MEDS ORDERED: METO50TA16 PO (08:36)
[2021-08-19] MEDS ORDERED: FUROSEMIDE 40 MG/4 ML VIAL IV ONE (09:00)
[2021-08-19] MEDS ORDERED: FUROSEMIDE 40 MG/4 ML VIAL ONE (09:04)
--- NOTE | 2021-08-19 09:10 | NUR ---
PT AMBULATORY W/ FWW. ASSISTED TO THE BATHROOM.
--- NOTE | 2021-08-19 09:17 | NUR ---
ROOM 105
[2021-08-19] MEDS ORDERED: POTASSIUM CHLORIDE 20 MEQ TAB.PRT.SR PO SCH ×2 (10:00→12:00)
[2021-08-19] MEDS ORDERED: CLONIDINE HCL 0.1 MG TABLET PO PRN (10:00)
[2021-08-19] MEDS ORDERED: GLIMEPIRIDE 4 MG TABLET PO SCH (10:00)
--- NOTE | 2021-08-19 10:11 | NUR ---
REPORT GIVEN TO PAULETTE FOR MICHAEL
--- NOTE | 2021-08-19 10:15 | NUR ---
RN NOTE REPORT RECEIVED FROM FRANSICO FROM ER.
[2021-08-19] MEDS: ENOXAPARIN SODIUM 30 MG/0.3 ML DISP.SYRIN SQ SCH (10:30)
[2021-08-19] MEDS ORDERED: ALBUTEROL FS 2.5 MG/0.5 ML VIAL.NEB NEB PRN (10:30)
[2021-08-19 10:59] LABS: THYROID STIMULATING HORMONE 4.724 uIU/mL (0.358-3.74)
--- NOTE | 2021-08-19 11:05 | NUR ---
MRSA SWAB OBTAINED AND SENT TO LAB
[2021-08-19 11:48] LABS: EOSINOPHILS % (MANUAL) 5 % (0-4); LYMPHOCYTES % (MANUAL) 29 % (16-48); MONOCYTES % (MANUAL) 10 % (0-11.0); NEUTROPHILS % (MANUAL) 56 (42-76)
--- NOTE | 2021-08-19 11:50 | NUR ---
PT TRANSFERRED TO [facility] VIA ACLS PROTOCOL BY CYNDIE, ACCOMPANIED BY 2 ER NURSES. BEDSIDE ENDORSEMENT GIVEN TO ZEYAD CALDWELL.
[2021-08-19] MEDS: METOPROLOL TARTRATE 50 MG TABLET PO SCH ×2 (11:59→16:10)
[2021-08-19] MEDS: FUROSEMIDE 40 MG/4 ML VIAL IV SCH ×3 (11:59→17:05)
[2021-08-19 12:00] VITALS: BP 136/70
[2021-08-19] MEDS ORDERED: Z GUARD REMEDY 4 OZ OINT TP PRN (12:30)
[2021-08-19] MEDS ORDERED: MAGNESIUM HYDROXIDE 30 ML UDC PO PRN (12:30)
[2021-08-19] MEDS ORDERED: MAG HYDROX/AL HYDROX/SIMETH 30 ML UDC PO PRN (12:30)
[2021-08-19] MEDS ORDERED: ONDANSETRON HCL/PF 4 MG/2 ML VIAL IVP PRN (12:30)
[2021-08-19] MEDS ORDERED: DEXTROSE 50%-WATER 50 ML DISP.SYRIN IV PRN (12:30)
[2021-08-19] MEDS ORDERED: ACETAMINOPHEN 325 MG TABLET PO PRN (12:30)
--- NOTE | 2021-08-19 13:00 | NUR ---
RN NOTE PATIENT RECEIVED IN ROOM 105, TELE STATUS. PT STABLE ON RA AT TIME OF ARRIVAL. LEFT FA 20G IN PLACE FLUSHING WELL.
[2021-08-19 16:00] VITALS: BP 118/57
[2021-08-19] MEDS ORDERED: METFORMIN 500 MG TABLET PO SCH (17:00)
[2021-08-19] MEDS: BLOOD SUGAR DIAGNOSTIC 1 EACH STRIP VI SCH ×2 (17:05→23:13)
[2021-08-19] MEDS: INSULIN REGULAR, HUMAN 100 UNIT/ML 3 ML VIAL SQ PRN ×2 (17:06→21:45)
[2021-08-19 20:00] VITALS: BP 95/42
--- NOTE | 2021-08-19 22:00 | NUR ---
Received patient awake alert and oriented Citizen Of [place] speaking.ED from ICU act as smoking pipe repairer.Denies pain, sob,nausea or vomiting.Blood sugar 164 received 3 units RI.Verbalized she feels blood sugar low. Snacks given well tolerated.She said she feels better.Ambulated to restroom with one assist.slight fatigue noted.Fall precaution implemented.Call light at bedside.
[2021-08-20] VITALS: BP 119/55
[2021-08-20 04:00] VITALS: BP 130/80
[2021-08-20 06:09] LABS: BASOPHILS % (AUTO) 0.8 % (0.0-2.0); EOSINOPHILS % (AUTO) 4.4 % (0.0-6.0); HEMATOCRIT 40 % (33-45); HEMOGLOBIN 13.8 g/dL (11.5-14.8); LYMPHOCYTES # (AUTO) 1.5 K/uL (0.8-4.8); LYMPHOCYTES % (AUTO) 29.2 % (20.0-44.0); MEAN CORPUSCULAR HGB CONC 34 g/dl (31.0-36.0); MEAN CORPUSCULAR VOLUME 90 fL (82-100); MONOCYTES # (AUTO) 0.5 K/uL (0.1-1.30); MONOCYTES % (AUTO) 10.1 % (2.0-12.0); NEUTROPHILS # (AUTO) 2.9 K/uL (1.8-8.9); NEUTROPHILS % (AUTO) 55.5 % (43.0-81.0); PLATELET COUNT (AUTO) 100 K/uL (150-450); RED BLOOD CELL COUNT(AUTO) 4.48 MIL/uL (4.0-5.2); WHITE BLOOD COUNT (AUTO) 5.2 K/uL (4.3-11.0)
--- NOTE | 2021-08-20 06:40 | NUR ---
Patient resting in no acute distress.VS remains stable.SR.Denies pain or sob.Needs attended. Keep safe and comfortable.Call light at bedside.
--- NOTE | 2021-08-20 07:30 | NUR ---
STONE LAYOUT MARKER opening notes: Received patient awake alert and oriented Burmese/SLOVENIAN speaking. respiration even and unlabored, no sob noted. sinus rythm on tele monitor,o2 sat 98% on room air,iv heplock at left forearm gauge 20 , intact, flushed well no s/s of infiltration, bed in low and locked position , will monitor
[2021-08-20] MEDS: PANTOPRAZOLE 40 MG TABLET.DR PO SCH (07:38)
--- NOTE | 2021-08-20 07:45 | NUR ---
telecommunications network planner opening notes: Received patient awake alert and oriented Bruneian speaking. respiration even and unlabored, no sob noted. sinus rythm on tele monitor,o2 sat 98% on room air,iv heplock at left forearm gauge 20 , intact, flushed well no s/s of infiltration, bed in low and locked position , will monitor
[2021-08-20 08:00] VITALS: BP 116/81
[2021-08-20] MEDS: BLOOD SUGAR DIAGNOSTIC 1 EACH STRIP VI SCH ×4 (08:23→22:01)
[2021-08-20 08:26] LABS: CALCIUM, SERUM 9.8 mg/dL (8.5-10.1); CARBON DIOXIDE 25 mmol/L (21-32); CHLORIDE 103 mmol/L (98-107); CREATININE 1.4 mg/dL (0.6-1.3); GLUCOSE 166 mg/dL (74-106); MAGNESIUM 1.8 mg/dL (1.8-2.4); PHOSPHORUS 5.2 mg/dL (2.5-4.9); POTASSIUM 4.2 mmol/L (3.5-5.1); SODIUM SERUM 141 mmol/L (136-145); UREA NITROGEN, BLOOD 26 mg/dL (7-18)
[2021-08-20] MEDS: LOSARTAN POTASSIUM 50 MG TABLET PO SCH (08:53)
[2021-08-20] MEDS: ENOXAPARIN SODIUM 30 MG/0.3 ML DISP.SYRIN SQ SCH (08:54)
[2021-08-20] MEDS: METOPROLOL TARTRATE 50 MG TABLET PO SCH ×2 (08:54→17:00)
[2021-08-20] MEDS ORDERED: BUMETANIDE INJ 8 MG in IV NS 0.9% 48 ML IV ONE (10:00)
--- NOTE | 2021-08-20 10:52 | NUR ---
ms RN NOTES; iv BUMEX DRIP STARTED IV ORDERED
[2021-08-20 11:43] LABS: ALANINE AMINOTRANSFERASE 40 U/L (12-78); ALBUMIN 3.6 g/dL (3.4-5.0); ALKALINE PHOSPHATASE 81 U/L (46-116); ASPARTATE AMINOTRANSFERASE 53 U/L (15-37); BILIRUBIN,TOTAL 1.2 mg/dL (0.2-1.0); TOTAL PROTEIN, SERUM 8.2 g/dL (6.4-8.2)
[2021-08-20] MEDS: INSULIN REGULAR, HUMAN 100 UNIT/ML 3 ML VIAL SQ PRN (12:38)
[2021-08-20 16:00] VITALS: BP 99/54
--- NOTE | 2021-08-20 18:05 | NUR ---
RN NOTES: CALLED AND SPOKE TO DR CANADA REGARDING DAUGHTER CONCERN PT IS VERY WEAK AND BP 98/60 SHE THINK IS FROM IV BUMEX WITH ORDER TO DC IV BUMEX, PT WITH MULTIPLE TRY TO GET OUT OF BED REFUSED TO BE HELPED REFUSES TO USE BEDSIDE COMMODE CALLED DAUGHTER SANTIAGO CALLED HER BY PHONE STILL NOT LISTENING STAYED WITH PT UNTIL DAUGHTER AND SON IN LAW ARRIVED THEY REFUSED RESTRAINT AT THIS TIME SAYING THEY WILL LET HER GO TO BATHROOM BY HERSELF
--- NOTE | 2021-08-20 19:30 | NUR ---
RN NOTES: PT ASLEEP IN BED NOT IN ANY DISTRESS, O2 SAT 97% ON ROOM AIR,RIGHT Hand heplock intact and patent
--- NOTE | 2021-08-20 20:38 | NUR ---
ESHA/PASSENGER SERVICE REPRESENTATIVE PT IS UP WALKING TO THE TOILET, UNSTEADY ON FEET. GOT ORDER FOR SITTER OR RESTRAINTS DUE TO FALL RISK. CHARGE NURSE AWARE AND PATTERNMAKER METAL BENCH AWARE WELL. BED ALARM IS ON.
[2021-08-20] MEDS: *INSULIN REGULAR(HUMULIN R)HUM 100 UNIT/ML VIAL SQ PRN (22:02)
--- NOTE | 2021-08-20 22:05 | NUR ---
2205 Transferred patient to room [facility]-1 via bed. Patient's daughter and son accompanied patient. Patient awake and responsive, and stable on room air.
--- NOTE | 2021-08-20 22:06 | NUR ---
RN NOTE RECEIVED PT TRANSFER FROM [facility] VIA GURNEY TO RM.322-1, WITH DAUGHTER AND SON ACCOMPANYING. PT IS AWAKE, VERBAL, SPEAKS VERY LOW, UNCLEAR. RESPIRATIONS EVEN/UNLABORED, ON ROOM AIR. NO S/S OF PAIN NOTED. PT AMBULATORY BUT WEAK AND UNSTEADY, AND PER RN REPORT PT TENDS TO GET BY HERSELF REFUSING ASSISTANCE. HIGH FALL RISK. 1:1 SITTER IN ROOM. PT WITH IV ACCESS TO R-HAND #22G INTACT/PATENT/FLUSHES WELL. PT IN NO ACUTE DISTRESS. SAFETY MEASURES IN PLACE. WILL CONT TO MONITOR.
[2021-08-21] VITALS: BP 113/85
[2021-08-21] MEDS: BLOOD SUGAR DIAGNOSTIC 1 EACH STRIP VI SCH ×4 (06:50→21:40)
[2021-08-21] MEDS: INSULIN REGULAR, HUMAN 100 UNIT/ML 3 ML VIAL SQ PRN (06:51)
[2021-08-21 06:52] LABS: ALANINE AMINOTRANSFERASE 37 U/L (12-78); ALBUMIN 3.4 g/dL (3.4-5.0); ALKALINE PHOSPHATASE 76 U/L (46-116); ASPARTATE AMINOTRANSFERASE 55 U/L (15-37); BILIRUBIN,TOTAL 1.5 mg/dL (0.2-1.0); CALCIUM, SERUM 9.4 mg/dL (8.5-10.1); CARBON DIOXIDE 26 mmol/L (21-32); CHLORIDE 101 mmol/L (98-107); CREATININE 1.9 mg/dL (0.6-1.3); GLUCOSE 196 mg/dL (74-106); MAGNESIUM 1.5 mg/dL (1.8-2.4); PHOSPHORUS 5.5 mg/dL (2.5-4.9); POTASSIUM 3.6 mmol/L (3.5-5.1); SODIUM SERUM 139 mmol/L (136-145); TOTAL PROTEIN, SERUM 7.9 g/dL (6.4-8.2); UREA NITROGEN, BLOOD 30 mg/dL (7-18)
[2021-08-21 06:55] LABS: BASOPHILS % (AUTO) 0.4 % (0.0-2.0); EOSINOPHILS % (AUTO) 0.5 % (0.0-6.0); HEMATOCRIT 40 % (33-45); HEMOGLOBIN 13.7 g/dL (11.5-14.8); LYMPHOCYTES # (AUTO) 1.2 K/uL (0.8-4.8); LYMPHOCYTES % (AUTO) 17.2 % (20.0-44.0); MEAN CORPUSCULAR HGB CONC 34 g/dl (31.0-36.0); MEAN CORPUSCULAR VOLUME 90 fL (82-100); MONOCYTES # (AUTO) 0.6 K/uL (0.1-1.30); MONOCYTES % (AUTO) 8.9 % (2.0-12.0); NEUTROPHILS # (AUTO) 5.1 K/uL (1.8-8.9); PLATELET COUNT (AUTO) 105 K/uL (150-450); RED BLOOD CELL COUNT(AUTO) 4.45 MIL/uL (4.0-5.2); WHITE BLOOD COUNT (AUTO) 6.9 K/uL (4.3-11.0)
--- NOTE | 2021-08-21 07:08 | NUR ---
RN NOTE PT RESTING IN BED, EASILY AROUSABLE. VERBALLY RESPONSIVE, WITH CONFUSION. REORIENTATION PROVIDED. PT WITH WEAKNESS AND UNABLE TO AMBULATE SAFELY. WITH EPISODES OF TRYING TO GET OUT OF BED BY HERSELF REFUSING ASSISTANCE. 1:1 SITTER IN ROOM TO ASSIST FOR SAFETY. PT IN NO ACUTE DISTRESS. FREQUENT VISUAL CHECK DONE.
[2021-08-21] MEDS: PANTOPRAZOLE 40 MG TABLET.DR PO SCH (07:30)
--- NOTE | 2021-08-21 07:40 | NUR ---
MS RN OPENING NOTES RECEIVED PATIENT IN BED, ASLEEP. PATIENT IS ON ROOM AIR; NO RESPIRATORY DISTRESS OR SOB NOTED AT THIS TIME. NO S/S OF PAIN SUCH FACIAL GRIMACING, MOANING OR GUARDING NOTED. IV ACCESS ON R WRIST G #22 PRESENT AND INTACT. SAFETY PRECAUTIONS IN PLACE; BED IN LOW POSITION AND LOCKED, RAILS UP X2, CALL LIGHT WITHIN REACH. WILL CONTINUE TO MONITOR PATIENT.
--- NOTE | 2021-08-21 08:10 | NUR ---
MS RN NOTES MD AT THE BEDSIDE WITH PATIENT. PATIENT AWAKEN BUT VERY SLEEPY AND CONFUSED. ALERT AND ORIENTED TO SELF ONLY. WILL CONTINUE TO MONITOR.
[2021-08-21] MEDS: ENOXAPARIN SODIUM 30 MG/0.3 ML DISP.SYRIN SQ SCH (09:00)
[2021-08-21] MEDS: METOPROLOL TARTRATE 50 MG TABLET PO SCH ×2 (09:00→17:00)
[2021-08-21] MEDS: LOSARTAN POTASSIUM 50 MG TABLET PO SCH (09:00)
--- NOTE | 2021-08-21 09:39 | NUR ---
MS RN NOTES PATIENT ACTING CONFUSED, LOOKS WEAK AND DISORIENTED. ABGs ORDERED PER MD.
[2021-08-21] MEDS ORDERED: Magnesium 1GM/D5W 100ML PREMIX 100 ML IV SCH (10:30)
[2021-08-21 13:38] LABS: ABG BASE EXCESS 2.4 mmol/L; ABG PCO2 34.2 mmHg (35.0-45.0); ABG PH 7.488 (7.350-7.450); COHb 0.7 % (0.5-1.5); MetHb 0.4 % (0.0-1.5); O2Hb 89.9 % (94.0-97.0); SITE, ABG Left Radial; VENT MODE, BG ROOM AIR
[2021-08-21] MEDS ORDERED: LACTULOSE 10 G/15 ML UDC (PYXIS) PO PRN (16:00)
[2021-08-21] MEDS: LACTULOSE 10 G/15 ML UDC (PYXIS) PO SCH (17:47)
--- NOTE | 2021-08-21 18:29 | NUR ---
MS RN CLOSING NOTES PATIENT REMAINS IN BED, RESTING, CONFUSED, DAUGHTER AT BEDSIDE. PATIENT IS ON ROOM AIR; NO RESPIRATORY DISTRESS OR SOB NOTED AT THIS TIME. NO COMPLAINS OF PAIN. IV ACCESS ON LFA G #22 PRESENT AND INTACT. ALL NEEDS ATTENDED DURING THE DAY. SAFETY PRECAUTIONS IN PLACE; BED IN LOW POSITION AND LOCKED, RAILS UP X2, CALL LIGHT WITHIN REACH. WILL ENDORSE TO PIGMENT MAKING SUPERVISOR NURSE FOR MICHAEL.
--- NOTE | 2021-08-21 19:20 | NUR ---
MS RN OPENING NOTES: RECEIVED PATIENT IN BED, AWAKE, VERY CONFUSED. DAUGHTER AT THE BEDSIDE. NO S/S OF DISTRESS NOTED. NO COMPLAIN OF PAIN. WITH 1:1 SITTER AT THE BEDSIDE. O2 AT 2L/ MIN NASAL CANNULA. BED ALARM ON. BED IN LOWEST AND LOCKED POSITION.
[2021-08-21 20:00] VITALS: BP 110/53
--- NOTE | 2021-08-21 20:53 | NUR ---
PER REPORTS FROM ZEYAD MONTES PATIENT ATE ONLY VERY LITTLE, DAUGHTER WAS AT THE BEDSIDE. PER DAUGHTER SHE SPOKE TO MD EARLIER TODAY RE: CONCERN ABOUT HER MOM'S CONDITION.
[2021-08-21] MEDS: *INSULIN REGULAR(HUMULIN R)HUM 100 UNIT/ML VIAL SQ PRN (21:38)
[2021-08-22] MEDS: LACTULOSE 10 G/15 ML UDC (PYXIS) PO SCH ×5 (00:06→23:55)
[2021-08-22 06:38] LABS: BASOPHILS % (AUTO) 0.8 % (0.0-2.0); EOSINOPHILS % (AUTO) 2.5 % (0.0-6.0); HEMATOCRIT 39 % (33-45); HEMOGLOBIN 13.4 g/dL (11.5-14.8); LYMPHOCYTES # (AUTO) 1.9 K/uL (0.8-4.8); LYMPHOCYTES % (AUTO) 31.2 % (20.0-44.0); MEAN CORPUSCULAR HGB CONC 34 g/dl (31.0-36.0); MEAN CORPUSCULAR VOLUME 90 fL (82-100); MONOCYTES # (AUTO) 0.7 K/uL (0.1-1.30); MONOCYTES % (AUTO) 11.6 % (2.0-12.0); NEUTROPHILS # (AUTO) 3.3 K/uL (1.8-8.9); NEUTROPHILS % (AUTO) 53.9 % (43.0-81.0); PLATELET COUNT (AUTO) 101 K/uL (150-450); RED BLOOD CELL COUNT(AUTO) 4.34 MIL/uL (4.0-5.2); WHITE BLOOD COUNT (AUTO) 6.1 K/uL (4.3-11.0)
[2021-08-22] MEDS: INSULIN REGULAR, HUMAN 100 UNIT/ML 3 ML VIAL SQ PRN ×3 (06:50→17:44)
--- NOTE | 2021-08-22 07:15 | NUR ---
MS RN OPENING NOTES: RECEIVED PATIENT RESTING IN BED, A0X1 TO SELF ONLY. PT. IS SWEDISH/MALAGASY SPEAKING BUT UNDERSTANDS A LITTLE BIT OF DJIBOUTIAN. ABLE TO MAKE SIMPLE NEEDS KNOWN. PATIENT IN NO APPARENT DISTRESS. NO COMPLAINS OF PAIN AND DISCOMFORT. 02 AT 2L/MIN VIA NASAL CANNULA. BREATHING EVEN AND UNLABORED. IV ON LEFT FA 22G SALINE LOCKED. PATENT AND FLUSHING WELL. PT. HAS 1:1 SITTER AT THE BEDSIDE. PATIENT ON FALL AND ASPIRATION PRECAUTION: BED ALARM ON. BED IN LOWEST AND LOCKED POSITION. RAILS UP X2. HOB ELEVATED. WILL CONTINUE TO MONITOR.
[2021-08-22 07:49] LABS: CALCIUM, SERUM 9.3 mg/dL (8.5-10.1); CARBON DIOXIDE 27 mmol/L (21-32); CHLORIDE 103 mmol/L (98-107); CREATININE 2.3 mg/dL (0.6-1.3); GLUCOSE 165 mg/dL (74-106); MAGNESIUM 1.9 mg/dL (1.8-2.4); PHOSPHORUS 6.6 mg/dL (2.5-4.9); POTASSIUM 3.6 mmol/L (3.5-5.1); SODIUM SERUM 143 mmol/L (136-145); UREA NITROGEN, BLOOD 44 mg/dL (7-18)
[2021-08-22] MEDS: BLOOD SUGAR DIAGNOSTIC 1 EACH STRIP VI SCH ×4 (07:53→21:35)
[2021-08-22 08:00] VITALS: BP 116/65
[2021-08-22] MEDS: ENOXAPARIN SODIUM 30 MG/0.3 ML DISP.SYRIN SQ SCH (08:45)
[2021-08-22] MEDS: PANTOPRAZOLE 40 MG TABLET.DR PO SCH (08:47)
[2021-08-22] MEDS: METOPROLOL TARTRATE 50 MG TABLET PO SCH ×2 (08:47→17:00)
[2021-08-22] MEDS: IV NS 0.9% 1,000 ML IV SCH (09:48)
[2021-08-22 11:32] VITALS: BP 125/65
[2021-08-22 15:00] LABS: CREATININE, URINE 125.2 MG/DL (30.0-125.0)
[2021-08-22 15:15] LABS: BILIRUBIN,URINE NEGATIVE (NEGATIVE); COLOR,URINE YELLOW (YELLOW); LEUKOCYTE ESTERASE ,URINE NEGATIVE (NEGATIVE); NITRITE, URINE NEGATIVE (NEGATIVE); PROTEIN,URINE NEGATIVE (NEGATIVE); UGLUCOSE NEGATIVE (NEGATIVE)
[2021-08-22 17:00] VITALS: BP 121/69
--- NOTE | 2021-08-22 19:00 | NUR ---
OPENING NOTES: ALERT ORIENTATED X3 NAMIBIAN SPEAKING DTR-IN-LAW AT THE BEDSIDE.PATIENT STATED GOOD BM TODAY AMBULATES WITH THE WALKER NEEDS ASSIST BED ALARM IN USE I HAD THE DTR IN LAW REVIEW THE CALL LIGHT AND HOW TO CALL THE NURSE BEFORE SHE GETS OOB
--- NOTE | 2021-08-22 19:10 | NUR ---
322-1 MS RN CLOSING NOTES PATIENT IS RESTING IN BED, DAUGHTER AT BEDSIDE. PATIENT IS A0X3. DAUGHTER IS HELPING WITH TRANSLATION. PATIENT STARTED ON 2L NC AT BEGINNING OF SHIFT BUT IS NOW ON ROOM AIR; 02 SAT AT 96%. NO RESPIRATORY DISTRESS OR SOB NOTED AT THIS TIME. NO COMPLAINS OF PAIN. IV ACCESS ON LFA G #22 PRESENT AND INTACT. NS RUNNING AT 60 ML/HR. NO SIGNS OF INFECTION AND INFILTRATION NOTED. PT. WAS ABLE TO MAKE NEEDS KNOWN AND IS AMBULATING TO WITH 1 PERSON ASSIST USING FWW. PT. HAD A TOTAL OF 550 ML U/O THIS SHIFT. LAST TRIP TO THE BATHROOM, NO URINE OUTPUT OR BM. DID A BLADDER SCAN AND IT SHOWED [address] JONES AND AWAITING ORDER. FALL AND ASPIRATION PRECAUTIONS MAINTAINED; BED IN LOW POSITION AND LOCKED, RAILS UP X2, HOB ELEVATED, BED ALARM ON. CALL LIGHT WITHIN REACH. WILL ENDORSE CONTINUITY OF CARE TO PRINCIPAL PRODUCT MANAGER RN.
[2021-08-22 20:00] VITALS: BP 136/61
[2021-08-22 20:25] VITALS: BP 136/61
[2021-08-22] MEDS: *INSULIN REGULAR(HUMULIN R)HUM 100 UNIT/ML VIAL SQ PRN (21:43)
[2021-08-23] MEDS: IV NS 0.9% 1,000 ML IV SCH ×2 (02:16→19:01)
--- NOTE | 2021-08-23 04:30 | NUR ---
CLOSING NOTES: ALERT AND ORIENTATED X3 BRITISH SPEAKING BUT WITH JESTERS AND SOME UNTERSTANDING OF PERSIAN ABLE TO COMMUNICAT AND SHE CAN MAKE HER NEEDS KNOWN BED ALARM ON SHE NEEDS ASSIST TO GO TO THE BATHROOM USING HER WALKER AND NURSE AT HER SIDE LUNGS CLEAR VIA AUSCULTATIOROOM AIR SAYS 97%
[2021-08-23] MEDS: LACTULOSE 10 G/15 ML UDC (PYXIS) PO SCH ×4 (05:48→23:23)
[2021-08-23] MEDS: BLOOD SUGAR DIAGNOSTIC 1 EACH STRIP VI SCH ×4 (06:06→22:47)
[2021-08-23] MEDS: INSULIN REGULAR, HUMAN 100 UNIT/ML 3 ML VIAL SQ PRN (06:12)
[2021-08-23 07:08] LABS: CALCIUM, SERUM 8.8 mg/dL (8.5-10.1); CARBON DIOXIDE 26 mmol/L (21-32); CHLORIDE 104 mmol/L (98-107); CREATININE 1.7 mg/dL (0.6-1.3); GLUCOSE 141 mg/dL (74-106); POTASSIUM 3.3 mmol/L (3.5-5.1); SODIUM SERUM 140 mmol/L (136-145); UREA NITROGEN, BLOOD 45 mg/dL (7-18)
--- NOTE | 2021-08-23 07:16 | NUR ---
MS RN OPENING NOTE RECEIVED PATIENT ASLEEP IN BED. PATIENT IS RESPONSIVE TO CALL/ TOUCH. PATIENT IS ALERT AND ORIENTED X 3. PATIENT IS ON ROOM AIR WITH EVEN AND NONLABORED BREATHING, WITH NO SIGNS OF RESPIRATORY DISTRESS NOTED. WITH IV ACCESS ON RIGHT WRIST G20 ON SALINE LOCK, PATNET AND INTACT; FLUSHES WELL. COMFORT MEASURES PROVIDED. SAFETY MEASURES ENSURED WITH CALL LIGHT AND TABLE WITHIN REACH, SIDE RAILS UP X3, HEAD OF BED ELEVATED, BED IN LOWEST LOCKED POSITION. WILL CONTINUE TO MONITOR
[2021-08-23 07:17] LABS: BASOPHILS % (AUTO) 0.7 % (0.0-2.0); EOSINOPHILS % (AUTO) 2.5 % (0.0-6.0); HEMATOCRIT 37 % (33-45); HEMOGLOBIN 12.5 g/dL (11.5-14.8); LYMPHOCYTES # (AUTO) 1.9 K/uL (0.8-4.8); LYMPHOCYTES % (AUTO) 30.2 % (20.0-44.0); MEAN CORPUSCULAR HGB CONC 34 g/dl (31.0-36.0); MEAN CORPUSCULAR VOLUME 90 fL (82-100); MONOCYTES # (AUTO) 0.8 K/uL (0.1-1.30); MONOCYTES % (AUTO) 12.9 % (2.0-12.0); NEUTROPHILS # (AUTO) 3.3 K/uL (1.8-8.9); NEUTROPHILS % (AUTO) 53.7 % (43.0-81.0); PLATELET COUNT (AUTO) 91 K/uL (150-450); RED BLOOD CELL COUNT(AUTO) 4.07 MIL/uL (4.0-5.2); WHITE BLOOD COUNT (AUTO) 6.2 K/uL (4.3-11.0)
[2021-08-23] MEDS: PANTOPRAZOLE 40 MG TABLET.DR PO SCH ×2 (07:30→08:58)
[2021-08-23] MEDS: METOPROLOL TARTRATE 50 MG TABLET PO SCH ×3 (08:59→17:15)
[2021-08-23] MEDS: ENOXAPARIN SODIUM 30 MG/0.3 ML DISP.SYRIN SQ SCH ×2 (09:00→09:01)
[2021-08-23] MEDS ORDERED: POTASSIUM CHLORIDE 20 MEQ TAB.PRT.SR PO ONE (09:00)
--- NOTE | 2021-08-23 09:12 | NUR ---
MS RN NOTES PT REFUSED AM MEDICATION, EXPLAINED USES OF MEDICATION AND POSSIBLE CONSEQUENCES OF ACTION AND DISEASE PROCESS. PO MED WASTED WITH LIZZIE JEFFERS.
--- NOTE | 2021-08-23 12:21 | NUR ---
MS RN NOTES: INSULIN COVERAGE HELD D/T NON CONSUMPTION OF MEAL.
[2021-08-23 13:49] LABS: EOSINOPHILS % (MANUAL) 4 % (0-4); LYMPHOCYTES % (MANUAL) 28 % (16-48); MONOCYTES % (MANUAL) 11 % (0-11.0); NEUTROPHILS % (MANUAL) 57 (42-76)
[2021-08-23] MEDS: *INSULIN REGULAR(HUMULIN R)HUM 100 UNIT/ML VIAL SQ PRN ×2 (17:28→22:41)
--- NOTE | 2021-08-23 19:24 | NUR ---
MS RN CLOSING NOTE PATIENT ASLEEP IN BED. PATIENT IS RESPONSIVE TO CALL/ TOUCH. PATIENT IS ALERT AND ORIENTED X 3. PATIENT IS ON ROOM AIR WITH EVEN AND NON LABORED BREATHING, WITH NO SIGNS OF RESPIRATORY DISTRESS NOTED. WITH IV ACCESS ON RIGHT WRIST G20 ON SALINE LOCK, PATENT AND INTACT; FLUSHES WELL. COMFORT MEASURES PROVIDED. SAFETY MEASURES ENSURED WITH CALL LIGHT AND TABLE WITHIN REACH, SIDE RAILS UP X3, HEAD OF BED ELEVATED, BED IN LOWEST LOCKED POSITION. WILL ENDORSE PATIENT FOR CONTINUITY OF CARE.
[2021-08-23 19:36] VITALS: BP 134/59
--- NOTE | 2021-08-23 19:46 | NUR ---
MS RN OPENING NOTES: RECEIVED PATIENT AWAKE IN BED, ACCOMPANIED BY FAMILY BED IN LOW POSITION CALL LIGHTS WITHIN REACH, NO COMPLAIN OF PAIN AND DISCOMFORT AT THIS TIME, PATIENT IS A/OX3 UGANDAN SPEAKING, AMBULATORY WITH SUPERVISION, WITH IV LINE AT RIGHT INNER WRIST @60ML/HR INFUSING WELL, PATIENT ON ROOM AIR SATURATING WELL, PATIENT KEPT CLEAN AND DRY ALL NEEDS WILL CONTINUE TO MONITOR.
[2021-08-23 20:00] VITALS: BP 107/71
--- NOTE | 2021-08-23 22:47 | NUR ---
rn notes: blood sugar-224- 4 units regular insulin given per sliding scale
[2021-08-24] MEDS: LACTULOSE 10 G/15 ML UDC (PYXIS) PO SCH ×3 (06:34→17:54)
[2021-08-24] MEDS: INSULIN REGULAR, HUMAN 100 UNIT/ML 3 ML VIAL SQ PRN ×2 (07:42→17:57)
[2021-08-24] MEDS: BLOOD SUGAR DIAGNOSTIC 1 EACH STRIP VI SCH ×3 (07:43→17:57)
--- NOTE | 2021-08-24 07:43 | NUR ---
RN NOTES: BLOOD SUGAR 187- 3 UNITS GIVEN
--- NOTE | 2021-08-24 07:49 | NUR ---
MS RN CLOSING NOTES: PATIENT SLEEP IN BED COMFORTABLY, AROUSABLE TO VERBAL STIMULI, BED IN LOW POSITION, CALL LIGHTS WITHIN REACH, ON ROOM AIR SATURATING WELL PATIENT IS A/OX3 AMBULATORY, WITH ONGOING IV AT R HAND #22 WITH NSS@60ML/HR INFUSING WELL, PATIENT KEPT CLEAN AND DRY ALL NEEDS MET ENDORSE TO INCOMING SHIFT.
--- NOTE | 2021-08-24 07:58 | NUR ---
RN OPENING NOTE PATIENT RECEIVED IN BED, AO X 3, ABLE TO RESPONDS ALL STIMULI. IN NO ACUTE DISTRESS NOTED. RESPIRATORY EVEN AND UNLABORED ON ROOM AIR. SKIN IS WARM TO TOUCH, KEEP CLEAN/DRY. KEPT ELEVATED HOB FOR ENSURE AIRWAY AND ASPIRATION PRECAUTION, ALSO LOWEST POSITION OF THE BED, S/R UP X 3, BED ALARM IS ON AT ALL THE TIMES. ALL SAFETY PRECAUTION APPLIED. CALL LIGHT WITHIN REACH, WILL CONTINUE TO MONITOR.
[2021-08-24 08:00] VITALS: BP 108/69
[2021-08-24 08:20] LABS: CALCIUM, SERUM 8.5 mg/dL (8.5-10.1); CARBON DIOXIDE 27 mmol/L (21-32); CHLORIDE 104 mmol/L (98-107); CREATININE 1.5 mg/dL (0.6-1.3); GLUCOSE 205 mg/dL (74-106); POTASSIUM 3.5 mmol/L (3.5-5.1); SODIUM SERUM 139 mmol/L (136-145); UREA NITROGEN, BLOOD 35 mg/dL (7-18)
[2021-08-24] MEDS ORDERED: POTASSIUM CHLORIDE 20 MEQ TAB.PRT.SR PO SCH (09:00)
[2021-08-24] MEDS ORDERED: FUROSEMIDE 40 MG TABLET PO SCH (09:00)
[2021-08-24] MEDS: ENOXAPARIN SODIUM 30 MG/0.3 ML DISP.SYRIN SQ SCH (09:10)
[2021-08-24 09:12] VITALS: BP 108/69
[2021-08-24] MEDS: METOPROLOL TARTRATE 50 MG TABLET PO SCH ×2 (09:12→17:00)
[2021-08-24] MEDS: PANTOPRAZOLE 40 MG TABLET.DR PO SCH (09:39)
[2021-08-24] MEDS ORDERED: LACT10SO3 PO (09:56)
[2021-08-24] MEDS: *INSULIN REGULAR(HUMULIN R)HUM 100 UNIT/ML VIAL SQ PRN (12:11)
--- NOTE | 2021-08-24 16:00 | NUR ---
PATIENT D/C TO HOME WITH HOME HEALTH, GIVEN DISCHARGE INSTRUCTION INCLUDE NEW MEDICATION/SIDE EFFECTS. PATIENT IN STABLE CONDITION. LEFT FACILITY ACCOMPANIED BY STAFF TO THE PRIVATE CAR.
== END 2021-08-24 18:17 | disposition home health service (06) | DRG 291 ==
LOC: ER 05:54 → TELE1 09:17 → MEDSG1 08-20 10:24 → MED 08-20 22:18
PROVIDERS: ADMIT Internal Medicine; ATTEND Internal Medicine
DX: I11.0 Hypertensive heart disease with heart failure (principal); E43 Unspecified severe protein-calorie malnutrition; J96.01 Acute respiratory failure with hypoxia; K72.00 Acute and subacute hepatic failure without coma; I50.33 Acute on chronic diastolic (congestive) heart failure; N17.0 Acute kidney failure with tubular necrosis; N17.9 Acute kidney failure, unspecified; Z68.41 Body mass index [BMI] 40.0-44.9, adult; J44.9 Chronic obstructive pulmonary disease, unspecified; E11.9 Type 2 diabetes mellitus without complications; K75.81 Nonalcoholic steatohepatitis (NASH); I87.8 Other specified disorders of veins; M81.0 Age-related osteoporosis without current pathological fracture; K21.9 Gastro-esophageal reflux disease without esophagitis; E66.01 Morbid (severe) obesity due to excess calories; E78.5 Hyperlipidemia, unspecified; G47.33 Obstructive sleep apnea (adult) (pediatric); I70.0 Atherosclerosis of aorta; K74.60 Unspecified cirrhosis of liver; N28.1 Cyst of kidney, acquired; M19.90 Unspecified osteoarthritis, unspecified site; Z28.310 Unvaccinated for COVID-19; Z20.822 Contact with and (suspected) exposure to COVID-19; Z79.4 Long term (current) use of insulin; Z79.84 Long term (current) use of oral hypoglycemic drugs; Z79.899 Other long term (current) drug therapy; Z91.012 Allergy to eggs; Z88.5 Allergy status to narcotic agent; Z88.0 Allergy status to penicillin; Z88.8 Allergy status to other drugs, medicaments and biological substances; Z91.018 Allergy to other foods
CPT/HCPCS: 36415; 36600; 70450-TC; 71045-TC; 76770-TC; 80048-TC; 80053-TC; 80061-TC; 80076-TC; 82140-TC; 82570-TC; 82728-TC; 82803-TC; 82962-TC; 83540-TC; 83735-TC; 83880; 84100-TC; 84300-TC; 84439-TC; 84443-TC; 84484-TC; 85025-TC; 87081-TC; 93307-TC; 97116-TC; 97530-TC; C9803; G0378; J1650; J1815; J1940; J3475; J3490; J7030; J7040; J7050

== ENCOUNTER 2021-09-23 21:17 | Inpatient (IN) | payer MEDICARE, OTHER ==
[~2021-09-23] VITALS: Ht 170.2 cm; Wt 121.1 kg
[~2021-09-23 21:17] MED LIST changes: +ALEN70TA80 PO; +LACT10SO3 PO; +METF-442 PO; +METO50TA16 PO; -NEBI10TA2 PO; +OMEP40CA21 PO; -POTA10TA10 PO; +POTA8TAB3 PO
--- NOTE | 2021-09-23 21:25 | NUR ---
BIBRA81. WEAKNESS AND FEVER X 2 DAYS. PT AWAKE AND ALERT X4 BREATHING EVEN AND UNABORED. DENIES C/P SOB COUGH OR SICK CONTACTS -N/V/D OR PYURIA. LOW RADE FEVER AND TACHYCARDIA/HTN ON TRIAGE. CHANGED INTO GOWN AND PLACED ON MONITOR AND PULSE OX.
--- NOTE | 2021-09-23 21:26 | NUR ---
20G LW. BLOOD COLLECTED AND SENT TO LAB.
--- NOTE | 2021-09-23 21:29 | NUR ---
EMT AT BEDSIDE FOR EKG
[2021-09-23] MEDS ORDERED: IBUPROFEN 600 MG TABLET PO ONE (21:30)
[2021-09-23 21:50] LABS: BASOPHILS # (AUTO) 0.1 K/uL (0.0-0.2); BASOPHILS % (AUTO) 0.8 % (0.0-2.0); EOSINOPHILS % (AUTO) 0.5 % (0.0-6.0); HEMATOCRIT 36 % (33-45); HEMOGLOBIN 12.5 g/dL (11.5-14.8); LYMPHOCYTES # (AUTO) 0.5 K/uL (0.8-4.8); LYMPHOCYTES % (AUTO) 7.7 % (20.0-44.0); MEAN CORPUSCULAR HGB CONC 35 g/dl (31.0-36.0); MEAN CORPUSCULAR VOLUME 88 fL (82-100); MONOCYTES # (AUTO) 0.5 K/uL (0.1-1.30); MONOCYTES % (AUTO) 8.1 % (2.0-12.0); NEUTROPHILS # (AUTO) 5.5 K/uL (1.8-8.9); NEUTROPHILS % (AUTO) 82.9 % (43.0-81.0); PLATELET COUNT (AUTO) 67 K/uL (150-450); RED BLOOD CELL COUNT(AUTO) 4.04 MIL/uL (4.0-5.2); WHITE BLOOD COUNT (AUTO) 6.6 K/uL (4.3-11.0)
[2021-09-23] MEDS ORDERED: VANCOMYCIN 1 GM VIAL ONE (21:57)
[2021-09-23] MEDS ORDERED: LEVOFLOXACIN 750 MG /D5W 150ML 150 ML IV ONE (22:00)
[2021-09-23] MEDS ORDERED: VANCOMYCIN 1 GM in IV D5W 250 ML IV ONE (22:00)
--- NOTE | 2021-09-23 22:00 | NUR ---
URINE COLLECTED AND SENT TO LAB
[2021-09-23 22:07] LABS: ALANINE AMINOTRANSFERASE 37 U/L (12-78); ALBUMIN 3.3 g/dL (3.4-5.0); ALKALINE PHOSPHATASE 83 U/L (46-116); ASPARTATE AMINOTRANSFERASE 47 U/L (15-37); BILIRUBIN,DIRECT 0.7 mg/dL (0.0-0.2); BILIRUBIN,TOTAL 1.9 mg/dL (0.2-1.0); CALCIUM, SERUM 9.1 mg/dL (8.5-10.1); CARBON DIOXIDE 25 mmol/L (21-32); CHLORIDE 102 mmol/L (98-107); CREATININE 1.5 mg/dL (0.6-1.3); GLUCOSE 246 mg/dL (74-106); POTASSIUM 3.6 mmol/L (3.5-5.1); SODIUM SERUM 136 mmol/L (136-145); TOTAL PROTEIN, SERUM 7.6 g/dL (6.4-8.2); UREA NITROGEN, BLOOD 22 mg/dL (7-18)
--- NOTE | 2021-09-23 22:08 | NUR ---
METAL ANNEALER AT BEDSIDE
--- NOTE | 2021-09-23 22:10 | NUR ---
LOCO COLLECTED AND SENT TO LAB
[2021-09-23 22:20] LABS: BAND % (MANUAL) 2 % (0.0-5.0); LYMPHOCYTES % (MANUAL) 5 % (16-48); MONOCYTES % (MANUAL) 4 % (0-11.0); NEUTROPHILS % (MANUAL) 89 (42-76)
[2021-09-23 22:34] LABS: BILIRUBIN,URINE NEGATIVE (NEGATIVE); COLOR,URINE YELLOW (YELLOW); LEUKOCYTE ESTERASE ,URINE NEGATIVE (NEGATIVE); NITRITE, URINE NEGATIVE (NEGATIVE); PROTEIN,URINE NEGATIVE (NEGATIVE); UGLUCOSE NEGATIVE (NEGATIVE)
[2021-09-23] MEDS ORDERED: CLINDAMYCIN IV RTU IN D5W 50 ML ONE (22:39)
[2021-09-23] MEDS ORDERED: CLINDAMYCIN 600 MG in IV D5W 100 ML IV ONE (23:00)
[2021-09-23] MEDS ORDERED: IV NS 0.9% 1,000 ML IV ONE (23:00)
[2021-09-23] MEDS ORDERED: FUROSEMIDE 20 MG/2 ML VIAL IV SCH (23:30)
[2021-09-23] MEDS ORDERED: ZOLPIDEM TARTRATE 5 MG TABLET PO PRN (23:30)
[2021-09-23] MEDS ORDERED: MAG HYDROX/AL HYDROX/SIMETH 30 ML UDC PO PRN (23:30)
[2021-09-23] MEDS ORDERED: CLONIDINE HCL 0.1 MG TABLET PO PRN (23:30)
[2021-09-23] MEDS ORDERED: ONDANSETRON HCL/PF 4 MG/2 ML VIAL IVP PRN (23:30)
[2021-09-23] MEDS ORDERED: Z GUARD REMEDY 4 OZ OINT TP PRN (23:30)
[2021-09-23] MEDS ORDERED: MAGNESIUM HYDROXIDE 30 ML UDC PO PRN (23:30)
[2021-09-23] MEDS ORDERED: ACETAMINOPHEN 325 MG TABLET PO PRN (23:30)
[2021-09-23] MEDS ORDERED: DEXTROSE 50%-WATER 50 ML DISP.SYRIN IV PRN (23:30)
--- NOTE | 2021-09-23 23:33 | NUR ---
JADA IBANEZ AT BEDSIDE
--- NOTE | 2021-09-23 23:42 | NUR ---
SANTIAGO (DAUGHTER IN LAW)
[2021-09-23] MEDS ORDERED: ALBUTEROL FS 2.5 MG/3 ML VIAL.NEB NEB PRN (23:45)
--- NOTE | 2021-09-24 00:45 | NUR ---
PHLEB AT BEDSIDE FOR BLOOD DRAW
[2021-09-24] MEDS ORDERED: IV NS 0.9% 500 ML BAG IV ONE (02:00)
[2021-09-24] MEDS ORDERED: CLINDAMYCIN 900 MG in IV D5W 50 ML IV SCH (05:00)
[2021-09-24 05:24] LABS: BASOPHILS % (AUTO) 0.8 % (0.0-2.0); EOSINOPHILS % (AUTO) 0.1 % (0.0-6.0); HEMATOCRIT 32 % (33-45); HEMOGLOBIN 11.2 g/dL (11.5-14.8); LYMPHOCYTES # (AUTO) 0.4 K/uL (0.8-4.8); LYMPHOCYTES % (AUTO) 6.5 % (20.0-44.0); MEAN CORPUSCULAR HGB CONC 35 g/dl (31.0-36.0); MEAN CORPUSCULAR VOLUME 89 fL (82-100); MONOCYTES # (AUTO) 0.3 K/uL (0.1-1.30); MONOCYTES % (AUTO) 6.2 % (2.0-12.0); NEUTROPHILS # (AUTO) 4.7 K/uL (1.8-8.9); NEUTROPHILS % (AUTO) 86.4 % (43.0-81.0); PLATELET COUNT (AUTO) 53 K/uL (150-450); RED BLOOD CELL COUNT(AUTO) 3.62 MIL/uL (4.0-5.2); WHITE BLOOD COUNT (AUTO) 5.5 K/uL (4.3-11.0)
[2021-09-24 05:38] LABS: SERUM AMMONIA 42 umol/L (11-32)
[2021-09-24 05:49] LABS: ALANINE AMINOTRANSFERASE 31 U/L (12-78); ALBUMIN 2.6 g/dL (3.4-5.0); ALKALINE PHOSPHATASE 66 U/L (46-116); ASPARTATE AMINOTRANSFERASE 40 U/L (15-37); BILIRUBIN,TOTAL 2.1 mg/dL (0.2-1.0); CALCIUM, SERUM 8.2 mg/dL (8.5-10.1); CARBON DIOXIDE 22 mmol/L (21-32); CHLORIDE 104 mmol/L (98-107); CREATININE 1.5 mg/dL (0.6-1.3); GLUCOSE 238 mg/dL (74-106); MAGNESIUM 1.4 mg/dL (1.8-2.4); PHOSPHORUS 2.7 mg/dL (2.5-4.9); POTASSIUM 3.4 mmol/L (3.5-5.1); SODIUM SERUM 137 mmol/L (136-145); TOTAL PROTEIN, SERUM 6.4 g/dL (6.4-8.2); UREA NITROGEN, BLOOD 22 mg/dL (7-18)
[2021-09-24] MEDS: CLINDAMYCIN 900 MG in IV D5W 50 ML IV SCH ×3 (06:26→22:47)
[2021-09-24] MEDS: BLOOD SUGAR DIAGNOSTIC 1 EACH STRIP VI SCH ×4 (07:30→22:47)
--- NOTE | 2021-09-24 07:40 | NUR ---
BED ASSIGNED 309-2
--- NOTE | 2021-09-24 08:03 | NUR ---
report given to anastacia horn. awaiting transfer to floor.
--- NOTE | 2021-09-24 08:16 | NUR ---
PT TRANSFERRED TO UNIT VIA CYNDIE ACLS PROTOCOL. WARM HANDOFF GIVEN TO RN ASSIGNED.
--- NOTE | 2021-09-24 09:10 | NUR ---
TELE-RN ADMITTING NOTES ADMITTED A 86 Y/O FEMALE FROM . VIA [facility] AT 0805 ACCOMPANIED BY E.RKristopher RN KEY WITH DX OF SEPSIS. PT IS A/O X3. TURKS AND CAICOS ISLANDER SPEAKING. ORIENTED TO UNIT AND STAFF. PATIENT IS ON ROOM AIR, TOLERATING WELL, BREATHING EVEN AND UNLABORED, NO SIGNS OF ACUTE RESPIRATORY DISTRESS NOTED. V/S TAKEN AND RECORDED. IV ACCESS NOTED ON LEFT HAND G#20 INTACT, PATENT AND FLUSHES WELL. PT PLACED ON EXTERNAL TERRAZZO WORKER APPRENTICE WITH CURRENT READING OF NSR, HR 91, NO C/O CARDIAC DISTRESS VOICED AT THIS TIME. SAFETY MEASURES IMPLEMENTED: HEAD OF BED ELEVATED, BED IN LOWEST LOCKED POSITION, CALL LIGHT AND TRAY TABLE WITHIN REACH, SIDE RAILS UP X2. WILL CONTINUE TO MONITOR
[2021-09-24] MEDS: LACTULOSE 10 G/15 ML UDC (PYXIS) PO SCH ×2 (09:18→16:20)
[2021-09-24] MEDS: PANTOPRAZOLE 40 MG VIAL IV SCH (09:19)
[2021-09-24] MEDS: LOSARTAN POTASSIUM 50 MG TABLET PO SCH (09:20)
[2021-09-24] MEDS: GLIMEPIRIDE 4 MG TABLET PO SCH ×2 (09:20→16:20)
[2021-09-24] MEDS: CHOLECALCIFEROL 1,000 UNIT TABLET (VIT D3) PO SCH (09:21)
[2021-09-24] MEDS: METOPROLOL TARTRATE 50 MG TABLET PO SCH ×2 (09:21→16:21)
[2021-09-24] MEDS: CALCIUM CARBONATE (1250) 500 MG TABLET PO SCH (09:21)
[2021-09-24] MEDS ORDERED: POTASSIUM CHLORIDE 10 MEQ TABLET.SA PO ONE (10:00)
[2021-09-24] MEDS ORDERED: MAGNESIUM OXIDE 400 MG TABLET PO ONE (10:00)
--- NOTE | 2021-09-24 10:28 | NUR ---
RN NOTES RECEIVED CALL FROM RAG SORTER AND CUTTER MARGARETTE MCKEON THAT PT HAS CRITICAL HIGH LACTIC ACID 3.7. DR MCKEON MADE AWARE WITH ORDER TO ADMINISTER 500ML OF NS AT 60ML/HR AND REPEAT LACTIC ACID AT 1500. WILL CARRY OUT ORDERS.
[2021-09-24] MEDS ORDERED: IV NS 0.9% 500 ML IV ONE (11:00)
--- NOTE | 2021-09-24 11:40 | NUR ---
RN NOTES PT PICKED-UP VIA WHEELCHAIR JUST NOW FOR CT OF CHEST, ABDOMEN AND PELVIS W/O CONTRAST.
[2021-09-24] MEDS: INSULIN REGULAR, HUMAN 100 UNIT/ML 3 ML VIAL SQ PRN ×2 (11:53→17:50)
[2021-09-24 14:26] VITALS: BP 136/75
--- NOTE | 2021-09-24 16:00 | NUR ---
RN NOTES PATIENT IS REFUSING TO USE BED SCHWARZ AND BED SIDE COMMODE. SHE ALSO IS INSISTING TO KEEP HER PERSONAL CLOTHING INSTEAD OF THE HOSPITAL DESPITE ENCOURAGEMENTS. PATIENT IS PERSISTENT IN GOING TO THE BATHROOM WITH ASSISTANCE. EDUCATED THE PATIENT TO USE THE CALL LIGHT WHENEVER SHE'S GETTING OUT OF BED.
[2021-09-24 16:11] VITALS: BP 132/68
--- NOTE | 2021-09-24 18:33 | NUR ---
LIQUID CHLORINE OPERATOR CLOSING NOTES PT IN BED ASLEEP AT THIS TIME, EASILY AWAKENS BY STIMULI. AFEBRILE THIS SHIFT, PT IS A/O X3. [place]ILI SPEAKING. ON ROOM AIR, TOLERATING WELL, BREATHING EVEN AND UNLABORED. TELE-MONITOR SHOWS NSR, HR 75 AT THIS TIME, NO C/O CARDIAC DISTRESS VOICED. IV ACCESS ON LEFT HAND G#20 INTACT WITH IVF OF NS @ 60ML/HR INFUSING WELL, NO S/S OF INFILTRATION AT SITE NOTED. ALL NEEDS AND CARE ATTENDED WELL. SAFETY MEASURES MAINTAINED: BED IN LOWEST LOCKED POSITION WITH SR - UP X2. TRAY TABLE AND CALL LIGHT W/I EASY REACH OF PT. WILL ENDORSE PLAN OF CARE TO VENEER GLUER NURSE.
--- NOTE | 2021-09-24 19:25 | NUR ---
RN NOTES CALLED RUBEN, DAUGHTER IN LAW, REGARDING PATIENT'S THE LAST DATE OF ADMINISTRATION OF FOSAMAX. RUBEN DOESNT KNOW THE EXACT DATE NOR THE PATIENT, RUBEN RECOMMENDED TO NOT GIVE MEDICATION. ENDORSED TO THE NOC SHIFT NURSE.
--- NOTE | 2021-09-24 19:40 | NUR ---
TELERN PATIENT SITTING ON THE SIDE OF HER BED. ASSISTED BACK TO BED MIN ASSISTED. HAVE BOTH LEGS ELEVATED ON PILLOWS. REFUSED OXYGEN, MILD SOB ON EXERTION. REPOSITIONED, HOB 45 DEGREES. NO OTHER DISCOMFORTS, KEPT COMFORTABLE. CALL LIGHT WITHIN REACH. SR ON THE MONITOR RATE 90 S. CONTINUED MONITORING. CLOSELY WATCHED.
[2021-09-24 21:00] VITALS: BP 128/62
--- NOTE | 2021-09-24 21:22 | NUR ---
TELERN SEEN BY DR. SNOW. ORDERS RECEIVED.
[2021-09-24] MEDS: HYDROCORTISONE 1% CREAM 28.35 GM TUBE TP SCH (21:30)
[2021-09-24] MEDS ORDERED: LEVOFLOXACIN 500 MG /D5W 100ML 500 MG in PREMIX 1 EA IV SCH (22:00)
--- NOTE | 2021-09-24 22:26 | NUR ---
KWASI LOTRISONE CREAM NOT AVAILABLE AT [facility] PER DIRECTOR OF FRONT OFFICE. Addendum: 09/24/21 at 2232 by ELISSA HINES RN CORRECTION: HYDROCORTISONE CREAM NOT ABOVE CREAM. HYDROCORTISONE N/A PER DIRECTOR OF FRONT OFFICE.
--- NOTE | 2021-09-24 22:30 | NUR ---
TELERN AWAKE, BS 183. SNACKS OFFERED. ATE JELLO ONLY. ASSISTED BACK TO BED. CONTINUED MONITORING
[2021-09-24] MEDS: DOXYCYCLINE HYCLATE (100 MG) 100 MG TABLET PO SCH (22:47)
--- NOTE | 2021-09-25 01:10 | NUR ---
TELERN ASSISTED TWICE TO RESTROOM, VOIDED FREELY REFUSED TO USE BSC . FLUIDS LIMITED SEC TO CHF. HFR, AMBULATES WITH FFW. CONTINUED
[2021-09-25 01:48] VITALS: BP 105/55
[2021-09-25 05:18] VITALS: BP 134/67
[2021-09-25] MEDS: CLINDAMYCIN 900 MG in IV D5W 50 ML IV SCH ×3 (05:51→23:06)
[2021-09-25] MEDS: BLOOD SUGAR DIAGNOSTIC 1 EACH STRIP VI SCH ×3 (05:51→16:53)
[2021-09-25 06:19] LABS: BASOPHILS % (AUTO) 0.5 % (0.0-2.0); EOSINOPHILS % (AUTO) 1.8 % (0.0-6.0); HEMATOCRIT 32 % (33-45); HEMOGLOBIN 11.1 g/dL (11.5-14.8); LYMPHOCYTES # (AUTO) 0.6 K/uL (0.8-4.8); LYMPHOCYTES % (AUTO) 17.8 % (20.0-44.0); MEAN CORPUSCULAR HGB CONC 35 g/dl (31.0-36.0); MEAN CORPUSCULAR VOLUME 89 fL (82-100); MONOCYTES # (AUTO) 0.4 K/uL (0.1-1.30); MONOCYTES % (AUTO) 10.9 % (2.0-12.0); NEUTROPHILS # (AUTO) 2.5 K/uL (1.8-8.9); PLATELET COUNT (AUTO) 52 K/uL (150-450); RED BLOOD CELL COUNT(AUTO) 3.61 MIL/uL (4.0-5.2); WHITE BLOOD COUNT (AUTO) 3.6 K/uL (4.3-11.0)
[2021-09-25] MEDS: INSULIN REGULAR, HUMAN 100 UNIT/ML 3 ML VIAL SQ PRN ×2 (06:27→16:55)
[2021-09-25 06:38] LABS: CALCIUM, SERUM 8.5 mg/dL (8.5-10.1); CARBON DIOXIDE 24 mmol/L (21-32); CHLORIDE 106 mmol/L (98-107); CREATININE 1.5 mg/dL (0.6-1.3); GLUCOSE 194 mg/dL (74-106); MAGNESIUM 1.5 mg/dL (1.8-2.4); PHOSPHORUS 2.6 mg/dL (2.5-4.9); POTASSIUM 3.5 mmol/L (3.5-5.1); SODIUM SERUM 138 mmol/L (136-145); UREA NITROGEN, BLOOD 20 mg/dL (7-18)
--- NOTE | 2021-09-25 06:49 | NUR ---
TELERN REMAINS SR ON THE MONITOR, NO SOB. BS WAS 178 COVERED WITH 3 UNITS OF REGULAR INSULIN SQ PER SLIDING SCALE.
--- NOTE | 2021-09-25 07:45 | NUR ---
EGG BREAKING MACHINE OPERATOR OPENING NOTES REPORT RECEIVED PATIENT ALERT A&OX3-4. [place] SPEAKING ONLY. ABLE TO MAKE NEEDS KNOWN. TELEMONITOR SHOWS SINUS RHYTHM AT 68 BPM PATIENT SITTING ON RA WITH NO SIGNS AND SYMPTOMS OF RESPIRATORY DISTRESS. ON CONSISTENT CARBS DIET. IV AT R WRIST WITH #20G SALINE LOCK PATENT AND INTACT WITH NO SIGNS OF INFILTRATION OR INFECTION. ALL SAFETY FALL PRECAUTIONS IN PLACE BED LOCK ON, BED ALARM ON, BED IN LOWEST POSITION, SIDE RAILS UP, CALL LIGHT AND TRAY TABLE WITHIN WITHIN REACH. CHEST XRAY DONE DURING MY MORNING ROUND. WILL CONTINUE TO MONITOR LAB VALUES AND FOR ANY CHANGE OF CHANGE OF CONDITION DURING MY SHIFT.
[2021-09-25 08:00] VITALS: BP 121/57
[2021-09-25] MEDS ORDERED: VANCOMYCIN 1.5 GM in IV D5W 500 ML IV SCH ×4 (08:00)
[2021-09-25] MEDS: LACTULOSE 10 G/15 ML UDC (PYXIS) PO SCH ×2 (08:40→16:31)
[2021-09-25] MEDS: METOPROLOL TARTRATE 50 MG TABLET PO SCH ×2 (08:41→16:25)
[2021-09-25] MEDS: GLIMEPIRIDE 4 MG TABLET PO SCH ×2 (08:41→16:35)
[2021-09-25] MEDS: DOXYCYCLINE HYCLATE (100 MG) 100 MG TABLET PO SCH ×2 (08:41→21:27)
[2021-09-25] MEDS: LOSARTAN POTASSIUM 50 MG TABLET PO SCH (08:41)
[2021-09-25] MEDS: CHOLECALCIFEROL 1,000 UNIT TABLET (VIT D3) PO SCH (08:42)
[2021-09-25] MEDS: PANTOPRAZOLE 40 MG VIAL IV SCH (08:42)
[2021-09-25] MEDS: CALCIUM CARBONATE (1250) 500 MG TABLET PO SCH (08:43)
[2021-09-25] MEDS: HYDROCORTISONE 1% CREAM 28.35 GM TUBE TP SCH ×2 (09:09→16:32)
[2021-09-25 09:38] LABS: NEUTROPHILS % (MANUAL) 75 (42-76)
[2021-09-25 09:39] LABS: BASOPHILS % (MANUAL) 0 % (0.0-2.0); EOSINOPHILS % (MANUAL) 1 % (0-4); LYMPHOCYTES % (MANUAL) 14 % (16-48); MONOCYTES % (MANUAL) 10 % (0-11.0)
[2021-09-25] MEDS ORDERED: Magnesium 1GM/D5W 100ML PREMIX 100 ML IV SCH (10:00)
--- NOTE | 2021-09-25 10:05 | NUR ---
RN NOTES PATIENT NOTED WITH LOW GRADE FEVER OF 100.29 AT 0800, COOLING MEASURES GIVEN, DR ROJAS MADE AWARE, CHECKED AGAIN AT 0830 AND TEMP WENT DOWN TO 98.7. WILL CONTINUE TO MONITOR.
[2021-09-25 12:00] VITALS: BP 127/71
--- NOTE | 2021-09-25 13:39 | NUR ---
RN NOTES SPOKE TO RUBEN, DAUGHTER IN LAW, REPORTED THE SWELLING AND REDNESS OF THE RIGHT LEG WHICH WAS SEEN BY DR ROJAS ALREADY. DR ROJAS ORDERED TO KEEP THE LEG ELEVATED, MENTIONED THAT HE WILL CALL RUBEN HIMSELFT TO EDUCATE THE PATIENT NOT TO WALK ANYMORE. RUBEN CLAIMS THAT THE PATIENT IS NOT ALLERGIC TO ACETAMINOPHEN.
[2021-09-25 16:00] VITALS: BP 99/55
--- NOTE | 2021-09-25 19:03 | NUR ---
COMPUTER SYSTEMS DESIGNER CLOSING NOTES PT IN BED AWAKE AT THIS TIME. A/O X3. INDONESIAN SPEAKING. REDNESS AND SWELLING TO RLE PERSIST, KEPT ELEVATED WITH PILLOWS. PT TOLERATING ROOM AIR WITH NO ACUTE SIGNS OF RESPIRATORY DISTRESS NOTED DURING THE DAY. TELE-MONITOR SHOWS NSR, HR 64 AT THIS TIME, NO C/O CARDIAC DISTRESS VOICED. IV ACCESS ON LEFT HAND G#20 INTACT, PATENT AND FLUSHES WELL. ALL NEEDS AND CARE ATTENDED WELL. SAFETY MEASURES KEPT IN PLACE: BED ON LOWEST LOCKED POSITION WITH SR - UP X2. TRAY TABLE AND CALL LIGHT W/I EASY REACH OF PT. WILL ENDORSE MICHAEL TO INSPECTOR HANDBAG FRAMES NURSE.
--- NOTE | 2021-09-25 20:00 | NUR ---
MS/TELE/RN PATIENT IS AWAKE, ALERT, ORIENTED, NO C/O PAIN, NO SIGNS OF DISTRESS NOTED, CALL LIGHT IN REACH. WILL MONITOR.
[2021-09-25] MEDS ORDERED: LEVOFLOXACIN 750 MG /D5W 150ML 750 MG in PREMIX 1 EA IV SCH (21:00)
[2021-09-25 21:14] VITALS: BP 106/61
--- NOTE | 2021-09-25 23:35 | NUR ---
MS/TELE/RN USED LANGUAGE LINE FOR BULGARIAN LANGUAGE INTERPRETATION, WITH SAIMA, ID # [id number] SENIOR COMPUTER SPECIALIST. ALL CONCERNS ADDRESSED.
[2021-09-26] MEDS: BLOOD SUGAR DIAGNOSTIC 1 EACH STRIP VI SCH ×3 (00:33→12:41)
[2021-09-26] MEDS: *INSULIN REGULAR(HUMULIN R)HUM 100 UNIT/ML VIAL SQ PRN ×2 (00:35→12:49)
[2021-09-26 00:44] VITALS: BP 144/67
[2021-09-26 05:12] VITALS: BP 163/94
[2021-09-26] MEDS: CLINDAMYCIN 900 MG in IV D5W 50 ML IV SCH ×2 (05:50→13:25)
[2021-09-26] MEDS: INSULIN REGULAR, HUMAN 100 UNIT/ML 3 ML VIAL SQ PRN (05:52)
--- NOTE | 2021-09-26 06:28 | NUR ---
MS/TELE/RN PATIENT IS AWAKE, ALERT, ORIENTED, NO C/O PAIN, NO DISTRESS NOTED, CALL LIGHT IN REACH, ALL NEEDS ATTENDED AT THIS TIME, WILL CONTINUE TO MONITOR.
[2021-09-26 06:45] LABS: BASOPHILS % (AUTO) 0.8 % (0.0-2.0); EOSINOPHILS % (AUTO) 6.6 % (0.0-6.0); HEMATOCRIT 35 % (33-45); HEMOGLOBIN 12.3 g/dL (11.5-14.8); LYMPHOCYTES # (AUTO) 1.1 K/uL (0.8-4.8); LYMPHOCYTES % (AUTO) 26.7 % (20.0-44.0); MEAN CORPUSCULAR HGB CONC 35 g/dl (31.0-36.0); MEAN CORPUSCULAR VOLUME 88 fL (82-100); MONOCYTES # (AUTO) 0.6 K/uL (0.1-1.30); MONOCYTES % (AUTO) 13.1 % (2.0-12.0); NEUTROPHILS # (AUTO) 2.2 K/uL (1.8-8.9); NEUTROPHILS % (AUTO) 52.8 % (43.0-81.0); PLATELET COUNT (AUTO) 76 K/uL (150-450); WHITE BLOOD COUNT (AUTO) 4.2 K/uL (4.3-11.0)
[2021-09-26 07:06] LABS: CALCIUM, SERUM 8.4 mg/dL (8.5-10.1); CARBON DIOXIDE 22 mmol/L (21-32); CHLORIDE 104 mmol/L (98-107); CREATININE 1.5 mg/dL (0.6-1.3); GLUCOSE 161 mg/dL (74-106); MAGNESIUM 1.8 mg/dL (1.8-2.4); POTASSIUM 3.9 mmol/L (3.5-5.1); SODIUM SERUM 135 mmol/L (136-145); UREA NITROGEN, BLOOD 21 mg/dL (7-18)
--- NOTE | 2021-09-26 07:51 | NUR ---
CIVIL ENGINEERING DESIGN DRAFTSPERSON OPENING NOTE PATIENT IS ALERT, ORIENTED TIMES 3, ON ROOM AIR , BREATHING NON LABORED , HAS IV ACCESS RIGHT HAND 22 GAIT SALINE LOCK , NO SIGHS OF INFILTRATION . PATIENT REMOVED EXTERNAL MONITOR LEADS DUE TO ITCHING .PATIENT IS AMBULATORY , BUT REQUIRES SUPERVISION .ALL SAFETY FALL PRECAUTIONS IN PLACE BED LOCK ON, BED ALARM ON, BED IN LOWEST POSITION, SIDE RAILS UP, CALL LIGHT AND TRAY TABLE WITHIN WITHIN REACH. WILL CONTINUE TO MONITOR
[2021-09-26 08:00] VITALS: BP 117/63
[2021-09-26] MEDS: LACTULOSE 10 G/15 ML UDC (PYXIS) PO SCH ×2 (08:10→16:02)
[2021-09-26] MEDS: CALCIUM CARBONATE (1250) 500 MG TABLET PO SCH (08:11)
[2021-09-26] MEDS: GLIMEPIRIDE 4 MG TABLET PO SCH ×2 (08:11→16:02)
[2021-09-26] MEDS: DOXYCYCLINE HYCLATE (100 MG) 100 MG TABLET PO SCH (08:11)
[2021-09-26] MEDS: CHOLECALCIFEROL 1,000 UNIT TABLET (VIT D3) PO SCH (08:11)
[2021-09-26] MEDS: LOSARTAN POTASSIUM 50 MG TABLET PO SCH (08:11)
[2021-09-26] MEDS: METOPROLOL TARTRATE 50 MG TABLET PO SCH ×2 (08:12→16:03)
[2021-09-26] MEDS: PANTOPRAZOLE 40 MG VIAL IV SCH (08:19)
[2021-09-26] MEDS: HYDROCORTISONE 1% CREAM 28.35 GM TUBE TP SCH ×2 (08:30→16:08)
[2021-09-26 09:23] LABS: BASOPHILS % (MANUAL) 0 % (0.0-2.0); EOSINOPHILS % (MANUAL) 6 % (0-4); LYMPHOCYTES % (MANUAL) 25 % (16-48); MONOCYTES % (MANUAL) 10 % (0-11.0); NEUTROPHILS % (MANUAL) 59 (42-76)
[2021-09-26] MEDS ORDERED: hydrOXYzine PAMOATE 25 MG CAPSULE PO PRN (11:30)
[2021-09-26 12:02] LABS: IRON, SERUM 48 ug/dl (50-175); TOTAL IRON BINDING CAPACITY 297 ug/dl (250-450)
[2021-09-26 12:13] LABS: FERRITIN 134 ng/mL (8-388)
[2021-09-26] MEDS ORDERED: DOXY100C2 PO (14:02)
[2021-09-26 16:00] VITALS: BP 123/64
[2021-09-26 16:03] VITALS: BP 140/80
--- NOTE | 2021-09-26 19:14 | NUR ---
rn note patient is at stable health status , d/c home home per patient's request.D/c instructions provided to the patient and PCG.patient verbalized understanding.
[2021-09-26] MEDS ORDERED: VANCOMYCIN 1.25 GM in IV D5W 250 ML IV SCH ×4 (20:00)
[2021-09-27] MEDS ORDERED: PANTOPRAZOLE 40 MG TABLET.DR PO SCH (07:30)
[2021-09-27 08:07] LABS: IMMUNOGLOBULIN A, SERUM 464 mg/dL (64-422); IMMUNOGLOBULIN G, SERUM 1169 mg/dL (586-1602); IMMUNOGLOBULIN M, SERUM 289 mg/dL (26-217)
[2021-09-27 09:07] LABS: *ANA ANTI-CENTROMERE B AB <0.2 AI (0.0-0.9); *ANA ANTI-DNA(DS) AB, QN 3 IU/mL (0-9); *ANA ANTI-JO-1 <0.2 AI (0.0-0.9); *ANA ANTICHROMATIN ANTIBODY <0.2 AI (0.0-0.9); *ANA RNP ANTIBODIES <0.2 AI (0.0-0.9); *ANA SJOGREN'S ANTI-SS-A <0.2 AI (0.0-0.9); *ANA SJOGREN'S ANTI-SS-B <0.2 AI (0.0-0.9); *ANAANTI-SCLERODERMA-70 AB <0.2 AI (0.0-0.9); *ANASMITH AB <0.2 AI (0.0-0.9)
[2021-09-27 12:07] LABS: *SPE A/G RATIO 0.7 (0.7-1.7); *SPE ALPHA-1-GLOBULIN 0.2 g/dL (0.0-0.4); *SPE ALPHA-2-GLOBULIN 0.5 g/dL (0.4-1.0); *SPE BETA GLOBULIN 0.9 g/dL (0.7-1.3); *SPE M-SPIKE Not Observed g/dL (Not Observed)
[2021-10-23] MEDS ORDERED: ALENDRONATE 70 MG TABLET PO SCH (06:00)
== END 2021-09-26 20:00 | disposition home or self-care (01) | DRG 871 ==
LOC: ER 21:20 → TRANSITION 22:33 → TELE 09-24 07:54 → MED 09-26 10:17
PROVIDERS: ADMIT Nurse Practitioner Acute Care; ATTEND Nurse Practitioner Family
DX: A41.9 Sepsis, unspecified organism (principal); G93.6 Cerebral edema; I50.33 Acute on chronic diastolic (congestive) heart failure; N17.0 Acute kidney failure with tubular necrosis; J15.9 Unspecified bacterial pneumonia; L03.115 Cellulitis of right lower limb; D68.9 Coagulation defect, unspecified; E87.2 Acidosis; I13.0 Hypertensive heart and chronic kidney disease with heart failure and stage 1 through stage 4 chronic kidney disease, or unspecified chronic kidney disease; Z68.41 Body mass index [BMI] 40.0-44.9, adult; J44.0 Chronic obstructive pulmonary disease with (acute) lower respiratory infection; D69.6 Thrombocytopenia, unspecified; D72.819 Decreased white blood cell count, unspecified; E11.22 Type 2 diabetes mellitus with diabetic chronic kidney disease; E78.5 Hyperlipidemia, unspecified; E88.09 Other disorders of plasma-protein metabolism, not elsewhere classified; K21.9 Gastro-esophageal reflux disease without esophagitis; N18.9 Chronic kidney disease, unspecified; Z79.84 Long term (current) use of oral hypoglycemic drugs; Z88.0 Allergy status to penicillin; K75.81 Nonalcoholic steatohepatitis (NASH); J44.9 Chronic obstructive pulmonary disease, unspecified; E11.65 Type 2 diabetes mellitus with hyperglycemia; M81.0 Age-related osteoporosis without current pathological fracture; K74.60 Unspecified cirrhosis of liver; M19.90 Unspecified osteoarthritis, unspecified site; E66.01 Morbid (severe) obesity due to excess calories; R59.0 Localized enlarged lymph nodes; R53.1 Weakness; G93.9 Disorder of brain, unspecified; N63.11 Unspecified lump in the right breast, upper outer quadrant; Z20.822 Contact with and (suspected) exposure to COVID-19
CPT/HCPCS: 36415; 71045-TC; 71250-TC; 76642-RT-TC; 76770-TC; 80048-TC; 80053-TC; 80076-TC; 82140-TC; 82378; 82607-TC; 82728-TC; 82784; 82962-TC; 83540-TC; 83605-TC; 83735-TC; 83880; 84100-TC; 84155; 84165; 84484-TC; 85025-TC; 85378-TC; 85385-TC; 85610-TC; 85730-TC; 86225; 86235; 86300; 86334; 86431-TC; 86706; 86803; 87040-TC; 87081-TC; 87086-TC; 87340; 93970-TC; A4216; C9113; G0378; J1815; J1956; J2405; J3370; J3475; J3490; J7030; J7040; J7060; Q0177